=== PATIENT | female | born 1930 | race Caucasian/White ===

== ENCOUNTER 2019-05-15 13:31 | Emergency (ER) | payer MEDICARE, MEDICAID ==
[~2019-05-15] VITALS: Ht 170.2 cm; Wt 52.2 kg
--- NOTE | 2019-05-15 13:44 | ED General ---
General Chief Complaint: General Problems/Pain Stated Complaint: WEAKNESS Source of Information: Patient, EMS Exam Limitations: No Limitations, Other (dementia) History of Present Illness Date Seen by Provider: May 15, 2019 Time Seen by Provider: 15:05 Initial Comments This 88-year-old white female presents from the half-way with a history of sudden weakness. The half-way personnel had been walking the patient when she became worried and had to lie down. She sustained no fall and no injury. The patient's decreased level of responsiveness precipitated her transferred to the emergency room for evaluation. On arrival in emergency Department patient was minimally but appropriately verbally responsive. Patient suffers from dementia. The patient denied any specific area of pain, Allergies and Home Medications Allergies Coded Allergies: No Known Drug Allergies (Unverified , 05/15/19) Patient Home Medication List Home Medication List Reviewed: Yes Review of Systems Review of Systems Constitutional: weakness EENTM: no symptoms reported Respiratory: No cough, No short of breath Cardiovascular: No chest pain, No palpitations Gastrointestinal: No abdominal pain, No nausea, No vomiting Genitourinary: No dysuria, No frequency : No Musculoskeletal: see HPI; No back pain, No joint pain Skin: No change in color, No rash Psychiatric/Neurological: Other (dementia) Hematologic/Lymphatic: No Symptoms Reported Immunological/Allergic: no symptoms reported Past Drphjut-Hjviiv-Jcisvr Hx Past Med/Social Hx: Reviewed Nursing Past Med/Soc Hx Physical Exam Vital Signs Vital Signs - First Documented 05/15/19 13:40 Temp 99.2 Pulse 75 Resp 18 B/P (MAP) 105/49 (67) Pulse Ox 95 O2 Delivery Room Air Capillary Refill : Height, Weight, BMI Height: '" Weight: lbs. oz. kg; BMI Method: General Appearance: No Apparent Distress, Cachetic Eyes: Bilateral Eye Normal Inspection HEENT: Normal ENT Inspection Neck: Full Range of Motion, Normal Inspection, Non Tender Respiratory: Chest Non Tender, Lungs Clear, Normal Breath Sounds Cardiovascular: Regular Rate, Rhythm, No Murmur Gastrointestinal: Normal Bowel Sounds, Non Tender, Soft Extremity: Normal Inspection, Normal Range of Motion Neurologic/Psychiatric: No Motor/Sensory Deficits Skin: Normal Color, Warm/Dry Progress/Results/Core Measures Suspected Sepsis SIRS Temperature: Pulse: Respiratory Rate: Laboratory Tests 05/15/19 13:40: White Blood Count 8.7 Blood Pressure / Mean: Laboratory Tests 05/15/19 13:40: Creatinine 1.02, Platelet Count 345, Total Bilirubin 0.3 Results/Orders Lab Results Laboratory Tests Test 05/15/19 13:40 Range/Units White Blood Count 8.7 4.3-11.0 10^3/uL Red Blood Count 4.29 L 4.35-5.85 10^6/uL Hemoglobin 12.4 11.5-16.0 G/DL Hematocrit 38 35-52 % Mean Corpuscular Volume 88 80-99 FL Mean Corpuscular Hemoglobin 29 25-34 PG Mean Corpuscular Hemoglobin Concent 33 32-36 G/DL Red Cell Distribution Width 12.4 10.0-14.5 % Platelet Count 345 130-400 10^3/uL Mean Platelet Volume 10.0 7.4-10.4 FL Neutrophils (%) (Auto) 59 42-75 % Lymphocytes (%) (Auto) 30 12-44 % Monocytes (%) (Auto) 8 0-12 % Eosinophils (%) (Auto) 2 0-10 % Basophils (%) (Auto) 1 0-10 % Neutrophils # (Auto) 5.1 1.8-7.8 X 10^3 Lymphocytes # (Auto) 2.6 1.0-4.0 X 10^3 Monocytes # (Auto) 0.7 0.0-1.0 X 10^3 Eosinophils # (Auto) 0.2 0.0-0.3 10^3/uL Basophils # (Auto) 0.1 0.0-0.1 10^3/uL Sodium Level 135 135-145 MMOL/L Potassium Level 4.9 3.6-5.0 MMOL/L Chloride Level 100 98-107 MMOL/L Carbon Dioxide Level 21 21-32 MMOL/L Anion Gap 14 5-14 MMOL/L Blood Urea Nitrogen 20 H 7-18 MG/DL Creatinine 1.02 0.60-1.30 MG/DL Estimat Glomerular Filtration Rate 51 BUN/Creatinine Ratio 20 Glucose Level 131 H 70-105 MG/DL Calcium Level 8.8 8.5-10.1 MG/DL Corrected Calcium 9.1 8.5-10.1 MG/DL Total Bilirubin 0.3 0.1-1.0 MG/DL Aspartate Amino Transf (AST/SGOT) 14 5-34 U/L Alanine Aminotransferase (ALT/SGPT) 11 0-55 U/L Alkaline Phosphatase 86 40-136 U/L Total Protein 6.6 6.4-8.2 GM/DL Albumin 3.6 3.2-4.5 GM/DL My Orders Orders - WILVER GARCIA MD Ekg Tracing (05/15/19 13:45) Cbc With Automated Diff (05/15/19 13:45) Comprehensive Metabolic Panel (05/15/19 13:45) Ua Culture If Indicated (05/15/19 13:45) Chest 1 View, Ap/Pa Only (05/15/19 13:45) Ct Head Wo (05/15/19 13:45) Vital Signs/I&O 05/15/19 13:40 Temp 99.2 Pulse 75 Resp 18 B/P (MAP) 105/49 (67) Pulse Ox 95 O2 Delivery Room Air Capillary Refill : Progress Note : Time: 15:[address] of the head cervical spine was unremarkable. Patient's EKG demonstrated a normal sinus rhythm no acute current of injury was noted. Chest x-ray was unremarkable. Patient's laboratory evaluation was essentially normal. The patient was tested for gait and found to be able to walk with minimal assistance and without apparent discomfort. Departure Impression Primary Impression: General medical exam Disposition: 01 HOME, SELF-CARE Condition: Improved Departure-Patient Inst. Decision time for Depature: 15:14 Patient Instructions: Orthostatic Hypotension Add. Discharge Instructions: Rest at the half-way tonight. Return if any problems or questions. All discharge instructions reviewed with patient and/or family. Voiced understanding. WILVER GARCIA MD May 15, 2019 13:43
[2019-05-15 13:52] LABS: BASOPHILS # (AUTO) 0.1 10^3/uL (0.0-0.1); BASOPHILS % (AUTO) 1 % (0-10); EOSINOPHILS # (AUTO) 0.2 10^3/uL (0.0-0.3); EOSINOPHILS % (AUTO) 2 % (0-10); HEMATOCRIT 38 % (35-52); HEMOGLOBIN 12.4 G/DL (11.5-16.0); LYMPHOCYTES # (AUTO) 2.6 X 10^3 (1.0-4.0); LYMPHOCYTES % (AUTO) 30 % (12-44); MEAN CORPUSCULAR HEMOGLOBIN 29 PG (25-34); MEAN CORPUSCULAR HGB CONC 33 G/DL (32-36); MEAN CORPUSCULAR VOLUME 88 FL (80-99); MONOCYTES # (AUTO) 0.7 X 10^3 (0.0-1.0); MONOCYTES % (AUTO) 8 % (0-12); NEUTROPHILS # (AUTO) 5.1 X 10^3 (1.8-7.8); NEUTROPHILS % (AUTO) 59 % (42-75); PLATELET COUNT 345 10^3/uL (130-400); RED CELL DISTRIBUTION WIDTH 12.4 % (10.0-14.5); WHITE BLOOD COUNT 8.7 10^3/uL (4.3-11.0)
[2019-05-15 14:08] LABS: ALBUMIN 3.6 GM/DL (3.2-4.5); BILIRUBIN,TOTAL 0.3 MG/DL (0.1-1.0); CALCIUM 8.8 MG/DL (8.5-10.1); CREATININE SERUM 1.02 MG/DL (0.60-1.30); POTASSIUM 4.9 MMOL/L (3.6-5.0); TOTAL PROTEIN 6.6 GM/DL (6.4-8.2)
--- NOTE | 2019-05-15 14:30 | Diagnostic Imaging Report ---
PROCEDURE: CT head without contrast. TECHNIQUE: Multiple contiguous axial images were obtained through the brain without the use of intravenous contrast. Auto Exposure Controls were utilized during the CT exam to meet ALARA standards for radiation dose reduction. INDICATION: Weakness. COMPARISON: No prior studies are available for comparison. FINDINGS: The ventricles and sulci are consistent with the patient's age. Periventricular hypodensities are noted consistent with senescent change. No sulcal effacement or midline shift is identified. No acute intra-axial or extra-axial hemorrhage is detected. Cisterns are patent. Visualized paranasal sinuses are clear. IMPRESSION: Senescent changes. No acute intracranial process is detected. Dictated by: Dictated on workstation # [id number]
--- NOTE | 2019-05-15 14:37 | Diagnostic Imaging Report ---
INDICATION: Weakness and abnormal breathing. TIME OF EXAM: 02:27 p.m. COMPARISON: No prior studies are available for comparison. FINDINGS: The heart size is normal. The pulmonary vascularity is unremarkable. The lungs are clear. No infiltrate, effusion or pneumothorax is detected. IMPRESSION: No acute cardiopulmonary process is detected. Dictated by: Dictated on workstation # [id number]
--- NOTE | 2019-05-15 15:44 | NUR ---
[facility] notified for pt needing transport back to facility.
--- NOTE | 2019-05-15 15:44 | NUR ---
pt walked without c/o dizziness or weakness.
[2019-05-15 16:30] VITALS: BP 105/49
--- OUTSIDE RECORDS SUMMARY | 2019-05-15 23:57 | XMS REPORT | Clinical Summary ---
Author Author Admin, GI Organization [facility] Address Unknown Phone Unavailable Allergies, Adverse Reactions, Alerts Allergy Name Reaction Description Start Date Severity Status Provider ASPIRIN LOW STRENGTH swelling Critical Active Jerrod lBackwell MD Conditions or Problems Problem Name Problem Code Onset Date Status Entry Date Provider Comment Standard Description Annotate Dementia 294.8 Active Jerrod Blackwell MD Other persistent mental disorders due to conditions classified elsewhere Depression 311 Active Jerrod Blackwell MD Depressive disorder, not elsewhere classified Dysuria 788.1 Active Jalyn PALENCIA Dysuria Constipation, mild 564.00 Active Jerrod Blackwell MD Constipation, unspecified Urinary tract infection 599.0 Active Jerrod Blackwell MD Urinary tract infection, site not specified Upper respiratory infection 465.9 Active Jerrod Blackwell MD Acute upper respiratory infections of unspecified site Medication List Medication Instructions Start Date Stop Date Generic Name NDC Status Provider Patient Instruction DONEPEZIL HCL 10 MG TBDP 1 qHS DONEPEZIL HCL 46395034832 No Longer Active Nitza Deb Active MIRTAZAPINE 30 MG TABS 1 tab at bedtime MIRTAZAPINE 47267035170 No Longer Active Nitza Deb Active RIVASTIGMINE TARTRATE 1.5 MG CAPS 1 cap every evening RIVASTIGMINE TARTRATE 39176041391 No Longer Active Nitza Deb Active MAGNESIUM CITRATE 1.745 GM/30ML SOLN 60ml po times one. MAGNESIUM CITRATE 06589045251 No Longer Active Jerrod Blackwell MD Active CIPRO 250 MG TAB 1 tablet by mouth twice daily CIPROFLOXACIN HCL 97358397077 No Longer Active Jerrod Blackwell MD Active LORAZEPAM 0.5 MG TABS 1 tab twice daily as needed LORAZEPAM 78585990184 Active Jerrod Blackwell MD Active ANTI-DIARRHEAL 2 MG CAPS Take 1 capsule every 4 to 6 hours as needed for diarrhea LOPERAMIDE HCL 26152894632 No Longer Active Jerrod Blackwell MD Active ATIVAN 0.5 MG TAB 1 twice a day as needed LORAZEPAM 47346461270 No Longer Active Jerrod Blackwell MD Active REMERON 15 MG TABS 1 every night for depression MIRTAZAPINE 37119306183 No Longer Active Jerrod Blackwell MD Active NAMENDA 5 MG TABS 1 twice a day for memory MEMANTINE HCL 60582288778 No Longer Active Jerrod Blackwell MD Active TYLENOL 325 MG TAB 2 tablets every four to six hours as needed for pain ACETAMINOPHEN 58692726573 Active Jerrod Blackwell MD Active DONEPEZIL HCL 5 MG TABS 1 every evening, Increase to 10mg every evening after 1 month DONEPEZIL HCL 03952952073 No Longer Active Jerrod Blackwell MD Active EQ MILK OF MAGNESIA SUSP Take 30mL every 6hrs. as needed for constipation MAGNESIUM HYDROXIDE SUSP 58694228225 Active Jerrod Blackwell MD Active DONEPEZIL HCL 5 MG TABS 1 every evening, Increase to 10mg every evening after 1 month DONEPEZIL HCL 5 MG TABS 796971 DONEPEZIL HCL Inactive NAMENDA 5 MG TABS 1 twice a day for memory NAMENDA 5 MG TABS MEMANTINE HCL Inactive REMERON 15 MG TABS 1 every night for depression REMERON 15 MG TABS 120515 MIRTAZAPINE Inactive ATIVAN 0.5 MG TAB 1 twice a day as needed ATIVAN 0.5 MG TAB 929211 LORAZEPAM Inactive ANTI-DIARRHEAL 2 MG CAPS Take 1 capsule every 4 to 6 hours as needed for diarrhea ANTI-DIARRHEAL 2 MG CAPS 009577 LOPERAMIDE HCL Inactive CIPRO 250 MG TAB 1 tablet by mouth twice daily CIPRO 250 MG TAB 566181 CIPROFLOXACIN HCL Inactive MAGNESIUM CITRATE 1.745 GM/30ML SOLN 60ml po times one. MAGNESIUM CITRATE 1.745 GM/30ML SOLN 6545398 MAGNESIUM CITRATE Inactive RIVASTIGMINE TARTRATE 1.5 MG CAPS 1 cap every evening RIVASTIGMINE TARTRATE 1.5 MG CAPS 225736 RIVASTIGMINE TARTRATE Inactive MIRTAZAPINE 30 MG TABS 1 tab at bedtime MIRTAZAPINE 30 MG TABS 591260 MIRTAZAPINE Inactive DONEPEZIL HCL 10 MG TBDP 1 qHS DONEPEZIL HCL 10 MG TBDP 098734 DONEPEZIL HCL Inactive Advance Directives Directive Description Start Date ORDER APPOINTING TEMPORARY GUARDIAN AND CONSERVATOR LETTER OF GUARDIANSHIP AND CONSERVATORSHIP Vital Signs Date Name Value Unit Range Description blood pressure, diastolic - 8462-4 74 mm[Hg] BP mcginnis blood pressure, systolic - 8480-6 156 mm[Hg] BP sys pulse rate E&M - 8867-4 85 /min Heart rate temperature E&M 98.1 [degF] Body temperature weight E&M - 3141-9 102.1 [lb_av] Weight Measured Encounters Code Encounter Date Provider Facility CPT-27942 Level 3 Est. Patient 15:37:18 CDT Jerrod Blackwell MD [facility] CPT-34431 Level 3 Est. Patient 12:08:11 CDT Jerrod Blackwell MD [facility] CPT-76007 Level 3 Est. 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 Patient 11:55:42 CHICKEN CLEANER Jerrod Blackwell MD [facility] CPT-59674 Level 3 Est. Patient 10:29:34 CHICKEN CLEANER Jerrod Blackwell MD [facility] CPT-12448 Level 3 New Patient 11:57:16 CHICKEN CLEANER Jerrod Blackwell MD [facility]
--- OUTSIDE RECORDS SUMMARY | 2019-05-15 23:57 | XMS REPORT | Clinical Summary ---
Author Author Admin, GI Organization [facility] Address Unknown Phone Unavailable Allergies, Adverse Reactions, Alerts Allergy Name Reaction Description Start Date Severity Status Provider ASPIRIN LOW STRENGTH swelling Critical Active Jerrod Blackwell MD Conditions or Problems Problem Name Problem Code Onset Date Status Entry Date Provider Comment Standard Description Annotate Dementia 294.8 Active Jerrod Blackwell MD Other persistent mental disorders due to conditions classified elsewhere Depression 311 Active Jerrod Blackwell MD Depressive disorder, not elsewhere classified Dysuria 788.1 Resolved Jerrod Blackwell MD Dysuria Constipation, mild 564.00 Active Jerrod Blackwell MD Constipation, unspecified Urinary tract infection 599.0 Resolved Jerrod Blackwell MD Urinary tract infection, site not specified Upper respiratory infection 465.9 Resolved Jerrod Blcakwell MD Acute upper respiratory infections of unspecified site Problems with hearing V41.2 Active Shagufta Fonseca [employer]OTHING [employer]UTTER Problems with hearing Xerosis, 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 Active Shagufta 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 [employer]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 CUTTER Other specified diseases of sebaceous glands Weight loss 783.21 Active Jerrod Blackwell MD Loss of weight Dysuria ICD-788.1 Inactive Jerrod Blackwell MD Urinary tract infection ICD-599.0 Inactive Jerrod Blackwell MD Upper respiratory infection ICD-465.9 Inactive Jerrod Blackwell MD Medication List Medication Instructions Start Date Stop Date Generic Name NDC Status Provider Patient Instruction AMBIEN 5 MG TAB 1 po qHS PRN Insomnia ZOLPIDEM TARTRATE 92381513688 Active Nitza Deb Active MIRTAZAPINE 15 MG ORAL TABS 1 every evening for depression/nutrition MIRTAZAPINE 56240731067 Active Jerrod Blackwell MD Active HALOPERIDOL LACTATE 2 MG/ML ORAL CONC 0.5mg by mouth twice daily HALOPERIDOL LACTATE 92674240195 No Longer Active Shagufta Yokum [employer]OTHING CUTTER Active EXELON 4.6 MG/24HR TRANS PT24 Apply one daily RIVASTIGMINE 26632899382 No Longer Active Shagufta Yokum [employer]OTHING CUTTER Active LORAZEPAM 0.5 MG TABS 1 tablet daily as needed for severe aggitation/anxiety LORAZEPAM 55650224780 Active Jerrod Blackwell MD Active DONEPEZIL HCL 10 MG TBDP 1 qHS DONEPEZIL HCL 05145791108 No Longer Active Nitza Deb Active MIRTAZAPINE 30 MG TABS 1 tab at bedtime MIRTAZAPINE 72736259640 No Longer Active Nitza Deb Active RIVASTIGMINE TARTRATE 1.5 MG CAPS 1 cap every evening RIVASTIGMINE TARTRATE 55876012690 No Longer Active Nitza Deb Active MAGNESIUM CITRATE 1.745 GM/30ML SOLN 60ml po times one. MAGNESIUM CITRATE 42601467901 No Longer Active Jerrod Blackwell MD Active CIPRO 250 MG TAB 1 tablet by mouth twice daily CIPROFLOXACIN HCL 84856313264 No Longer Active Jerrod Blackwell MD Active ANTI-DIARRHEAL 2 MG CAPS Take 1 capsule every 4 to 6 hours as needed for diarrhea LOPERAMIDE HCL 95478939257 No Longer Active Jerrod Blackwell MD Active ATIVAN 0.5 MG TAB 1 twice a day as needed LORAZEPAM 13597727132 No Longer Active Jerrod Blackwell MD Active REMERON 15 MG TABS 1 every night for depression MIRTAZAPINE 04028485793 No Longer Active Jerrod Blackwell MD Active NAMENDA 5 MG TABS 1 twice a day for memory MEMANTINE HCL 56336324523 No Longer Active Jerrod Blackwell MD Active TYLENOL 325 MG TAB 2 tablets every four to six hours as needed for pain ACETAMINOPHEN 17079173506 Active Jerrod Blackwell MD Active DONEPEZIL HCL 5 MG TABS 1 every evening, Increase to 10mg every evening after 1 month DONEPEZIL HCL 57783577532 No Longer Active Jerrod Blackwell MD Active EQ MILK OF MAGNESIA SUSP Take 30mL every 6hrs. as needed for constipation MAGNESIUM HYDROXIDE SUSP 75855272820 Active Jerrod Blackwell MD Active DONEPEZIL HCL 5 MG TABS 1 every evening, Increase to 10mg every evening after 1 month DONEPEZIL HCL 5 MG TABS 563446 DONEPEZIL HCL Inactive NAMENDA 5 MG TABS 1 twice a day for memory NAMENDA 5 MG TABS MEMANTINE HCL Inactive REMERON 15 MG TABS 1 every night for depression REMERON 15 MG TABS 874250 MIRTAZAPINE Inactive ATIVAN 0.5 MG TAB 1 twice a day as needed ATIVAN 0.5 MG TAB 632484 LORAZEPAM Inactive ANTI-DIARRHEAL 2 MG CAPS Take 1 capsule every 4 to 6 hours as needed for diarrhea ANTI-DIARRHEAL 2 MG CAPS 064821 LOPERAMIDE HCL Inactive CIPRO 250 MG TAB 1 tablet by mouth twice daily CIPRO 250 MG TAB 687421 CIPROFLOXACIN HCL Inactive MAGNESIUM CITRATE 1.745 GM/30ML SOLN 60ml po times one. MAGNESIUM CITRATE 1.745 GM/30ML SOLN 9646730 MAGNESIUM CITRATE Inactive RIVASTIGMINE TARTRATE 1.5 MG CAPS 1 cap every evening RIVASTIGMINE TARTRATE 1.5 MG CAPS 127218 RIVASTIGMINE TARTRATE Inactive MIRTAZAPINE 30 MG TABS 1 tab at bedtime MIRTAZAPINE 30 MG TABS 639694 MIRTAZAPINE Inactive DONEPEZIL HCL 10 MG TBDP 1 qHS DONEPEZIL HCL 10 MG TBDP 871729 DONEPEZIL HCL Inactive EXELON 4.6 MG/24HR TRANS PT24 Apply one daily EXELON 4.6 MG/24HR TRANS PT24 RIVASTIGMINE Inactive HALOPERIDOL LACTATE 2 MG/ML ORAL CONC 0.5mg by mouth twice daily HALOPERIDOL LACTATE 2 MG/ML ORAL CONC 409339 HALOPERIDOL LACTATE Inactive Advance Directives Directive Description Start Date ORDER APPOINTING TEMPORARY GUARDIAN AND CONSERVATOR LETTER OF GUARDIANSHIP AND CONSERVATORSHIP Vital Signs Date Name Value Unit Range Description blood pressure, diastolic - 8462-4 71 mm[Hg] BP mcginnis blood pressure, systolic - 8480-6 132 mm[Hg] BP sys pulse rate E&M - 8867-4 81 /min Heart rate temperature E&M 97.9 [degF] Body temperature weight E&M - 3141-9 97.4 [lb_av] Weight Measured blood pressure, diastolic - 8462-4 75 mm[Hg] BP mcginnis blood pressure, systolic - 8480-6 131 mm[Hg] BP sys pulse rate E&M - 8867-4 80 /min Heart rate temperature E&M 97.6 [degF] Body temperature weight E&M - 3141-9 100.2 [lb_av] Weight Measured blood pressure, diastolic - 8462-4 76 mm[Hg] BP mcginnis blood pressure, systolic - 8480-6 130 mm[Hg] BP sys pulse rate E&M - 8867-4 76 /min Heart rate temperature E&M 98.8 [degF] Body temperature weight E&M - 3141-9 105.4 [lb_av] Weight Measured blood pressure, diastolic - 8462-4 74 mm[Hg] BP mcginnis blood pressure, systolic - 8480-6 156 mm[Hg] BP sys pulse rate E&M - 8867-4 85 /min Heart rate temperature E&M 98.1 [degF] Body temperature weight E&M - 3141-9 102.1 [lb_av] Weight Measured Diagnostic Results Date Name Value Unit Range Description Lab Report: CBC, Comp. Metabolic Panel, Thyroid Stimulating Hormone (L), ... - Chemistry sodium, serum 131 mmol/L 720-533 6562/08/04 potassium, serum 4.7 mmol/L 3.5-5.2 chloride, serum 93 mmol/L 98-107 carbon dioxide, venous blood 31.4 mmol/L 21.0-32.0 blood glucose 106 mg/dL 65-110 urea nitrogen, blood 12 mg/dL 7-18 creatinine, serum 0.80 mg/dL 0.60-1.30 alanine aminotransferase (SGPT), serum 16 U/L 12-78 aspartate aminotransferase (SGOT), serum 14 U/L 15-37 calcium, serum 9.1 mg/dL 8.5-10.1 bilirubin, serum, total 0.80 mg/dL 0.00-1.00 TSH 1.69 m[iU]/mL 0.36-3.74 thyroxine, serum, free 1.29 ng/dL 0.76-1.46 Lab Report: CBC, Comp. Metabolic Panel, Thyroid Stimulating Hormone (L), ... - Hematology leukocyte count, blood 6.1 10^3/MM^3 10*3/mm3 4.6-10.2 erythrocyte (RBC) count 4.55 10^6/MM^3 10*6/mm3 4.04-5.48 hemoglobin, blood 13.6 g/dL 12.0-16.0 hematocrit, blood 39.3 % 36.0-46.0 mean corpuscular volume, RBC 86 fL 80-97 mean corpuscular hemoglobin, RBC 29.9 pg 27.0-31.2 mean corpuscular hemoglobin concentration, RBC 34.6 G/DL % 31.8-35.4 red blood cell distribution width 13.8 % 11.6-14.8 platelet count 370 10^3/MM^3 10*3/mm3 142-424 Encounters Code Encounter Date Provider Facility CPT-71500 Level 4 Est. Patient 11:23:55 CDT Jerrod Blackwell MD [facility] CPT-80634 Level 3 Est. Patient 12:57:00 CDT Shagufta Fonseca APRN [facility] CPT-06757 Level 3 Est. Patient 15:37:18 CDT Jerrod Blackwell MD [facility] CPT-52620 Level 3 Est. Patient 12:08:11 CDT Jerrod Blackwell MD [facility] CPT-20707 Level 3 Est. 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 Patient 10:29:34 SUPERVISOR [employer]OT[employer] Jerrod Blackwell MD [facility] CPT-30618 Level 3 New Patient 11:57:16 SUPERVISOR [employer]OT[employer] Jerrod Blackwell MD [facility]
--- OUTSIDE RECORDS SUMMARY | 2019-05-15 23:58 | XMS REPORT | Clinical Summary ---
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 Shagufta Fonseca CREDIT RISK ASSOCIATE Other specified diseases of sebaceous glands Weight loss 783.21 Active Jerrod Blackwell MD Loss of weight Dysuria ICD-788.1 Inactive Jerrod Blackwell MD Urinary tract infection ICD-599.0 Inactive Jerrod Blackwell MD Upper respiratory infection ICD-465.9 Inactive Jerrod Blackwell MD Medication List Medication Instructions Start Date Stop Date Generic Name NDC Status Provider Patient Instruction AMBIEN 5 MG TAB Take 1/2 tablet at HS ZOLPIDEM TARTRATE 64597892220 Active Mary Gallo APRN Active MIRTAZAPINE 15 MG ORAL TABS 1 every evening for depression/nutrition MIRTAZAPINE 24453377849 Active Jerrod Blackwell MD Active HALOPERIDOL LACTATE 2 MG/ML ORAL CONC 0.5mg by mouth twice daily HALOPERIDOL LACTATE 29612071603 No Longer Active Shagufta Fonseca APRN Active EXELON 4.6 MG/24HR TRANS PT24 Apply one daily RIVASTIGMINE 20036686963 No Longer Active Shagufta Fonseca APRN Active LORAZEPAM 0.5 MG TABS 1 tablet daily as needed for severe aggitation/anxiety LORAZEPAM 15013076741 Active Jerrod Blackwell MD Active DONEPEZIL HCL 10 MG TBDP 1 qHS DONEPEZIL HCL 81824583980 No Longer Active Nitza Deb Active MIRTAZAPINE 30 MG TABS 1 tab at bedtime MIRTAZAPINE 98013365887 No Longer Active Nitza Deb Active RIVASTIGMINE TARTRATE 1.5 MG CAPS 1 cap every evening RIVASTIGMINE TARTRATE 14699275282 No Longer Active Nitza Deb Active MAGNESIUM CITRATE 1.745 GM/30ML SOLN 60ml po times one. MAGNESIUM CITRATE 80069690618 No Longer Active Jerrod Blackwell MD Active CIPRO 250 MG TAB 1 tablet by mouth twice daily CIPROFLOXACIN HCL 04639329629 No Longer Active Jerrod Blackwell MD Active ANTI-DIARRHEAL 2 MG CAPS Take 1 capsule every 4 to 6 hours as needed for diarrhea LOPERAMIDE HCL 05074843946 No Longer Active Jerrod Blackwell MD Active ATIVAN 0.5 MG TAB 1 twice a day as needed LORAZEPAM 52797583176 No Longer Active Jerrod Blackwell MD Active REMERON 15 MG TABS 1 every night for depression MIRTAZAPINE 10027183082 No Longer Active Jerrod Blackwell MD Active NAMENDA 5 MG TABS 1 twice a day for memory MEMANTINE HCL 91526263056 No Longer Active Jerrod Blackwell MD Active TYLENOL 325 MG TAB 2 tablets every four to six hours as needed for pain ACETAMINOPHEN 52724883531 Active Jerrod Blackwell MD Active DONEPEZIL HCL 5 MG TABS 1 every evening, Increase to 10mg every evening after 1 month DONEPEZIL HCL 86369525327 No Longer Active Jerrod Blackwell MD Active EQ MILK OF MAGNESIA SUSP Take 30mL every 6hrs. as needed for constipation MAGNESIUM HYDROXIDE SUSP 35416367017 Active Jerrod Blackwell MD Active DONEPEZIL HCL 5 MG TABS 1 every evening, Increase to 10mg every evening after 1 month DONEPEZIL HCL 5 MG TABS 584733 DONEPEZIL HCL Inactive NAMENDA 5 MG TABS 1 twice a day for memory NAMENDA 5 MG TABS 701224 MEMANTINE HCL Inactive REMERON 15 MG TABS 1 every night for depression REMERON 15 MG TABS 441561 MIRTAZAPINE Inactive ATIVAN 0.5 MG TAB 1 twice a day as needed ATIVAN 0.5 MG TAB 911625 LORAZEPAM Inactive ANTI-DIARRHEAL 2 MG CAPS Take 1 capsule every 4 to 6 hours as needed for diarrhea ANTI-DIARRHEAL 2 MG CAPS 479377 LOPERAMIDE HCL Inactive CIPRO 250 MG TAB 1 tablet by mouth twice daily CIPRO 250 MG TAB 025876 CIPROFLOXACIN HCL Inactive MAGNESIUM CITRATE 1.745 GM/30ML SOLN 60ml po times one. MAGNESIUM CITRATE 1.745 GM/30ML SOLN 2712795 MAGNESIUM CITRATE Inactive RIVASTIGMINE TARTRATE 1.5 MG CAPS 1 cap every evening RIVASTIGMINE TARTRATE 1.5 MG CAPS 887619 RIVASTIGMINE TARTRATE Inactive MIRTAZAPINE 30 MG TABS 1 tab at bedtime MIRTAZAPINE 30 MG TABS 113700 MIRTAZAPINE Inactive DONEPEZIL HCL 10 MG TBDP 1 qHS DONEPEZIL HCL 10 MG TBDP 161510 DONEPEZIL HCL Inactive EXELON 4.6 MG/24HR TRANS PT24 Apply one daily EXELON 4.6 MG/24HR TRANS PT24 057222 RIVASTIGMINE Inactive HALOPERIDOL LACTATE 2 MG/ML ORAL CONC 0.5mg by mouth twice daily HALOPERIDOL LACTATE 2 MG/ML ORAL CONC 389252 HALOPERIDOL LACTATE Inactive Advance Directives Directive Description Start Date ORDER APPOINTING TEMPORARY GUARDIAN AND CONSERVATOR LETTER OF GUARDIANSHIP AND CONSERVATORSHIP Encounters Code Encounter Date Provider Facility CPT-[id number] Level 4 Est. Patient 11:23:55 CDT Jerrod Blackwell MD [facility] CPT-80599 Level 3 Est. Patient 12:57:00 CDT Shagufta Fonseca APRN [facility] CPT-92287 Level 3 Est. Patient 15:37:18 CDT Jerrod Blackwell MD [facility] CPT-14596 Level 3 Est. Patient 12:08:11 CDT Jerrod Blackwell MD [facility] CPT-07450 Level 3 Est. Patient 16:03:05 TEST CONSULTANT Jerrod Blackwell MD [facility] CPT-54305 Level 4 Est. Patient 11:55:42 TEST CONSULTANT Jerrod Blackwell MD [facility] CPT-01929 Level 3 Est. Patient 10:29:34 TEST CONSULTANT Jerrod Blackwell MD [facility] CPT-06094 Level 3 New Patient 11:57:16 TEST CONSULTANT Jerrod Blackwell MD [facility]
--- OUTSIDE RECORDS SUMMARY | 2019-05-15 23:58 | XMS REPORT | Clinical Summary ---
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 Shagufta Fonseca RN INFORMATICS Other specified diseases of sebaceous glands Dysuria ICD-788.1 Inactive Jerrod Blackwell MD Urinary tract infection ICD-599.0 Inactive Jerrod Blackwell MD Upper respiratory infection ICD-465.9 Inactive Jerrod Blackwell MD Medication List Medication Instructions Start Date Stop Date Generic Name NDC Status Provider Patient Instruction HALOPERIDOL LACTATE 2 MG/ML ORAL CONC 0.5mg by mouth twice daily HALOPERIDOL LACTATE 80017813105 No Longer Active Shagufta Fonseca RN INFORMATICS Active EXELON 4.6 MG/24HR TRANS PT24 Apply one daily RIVASTIGMINE 98307209064 No Longer Active Shagufta Fonseca RN INFORMATICS Active LORAZEPAM 0.5 MG TABS 1 tablet daily as needed for severe aggitation/anxiety LORAZEPAM 85725840406 Active Jerrod Blackwell MD Active DONEPEZIL HCL 10 MG TBDP 1 qHS DONEPEZIL HCL 31538001128 No Longer Active Nitza Deb Active MIRTAZAPINE 30 MG TABS 1 tab at bedtime MIRTAZAPINE 11320370565 No Longer Active Nitza Deb Active RIVASTIGMINE TARTRATE 1.5 MG CAPS 1 cap every evening RIVASTIGMINE TARTRATE 01147386391 No Longer Active Nitza Deb Active MAGNESIUM CITRATE 1.745 GM/30ML SOLN 60ml po times one. MAGNESIUM CITRATE 05743463697 No Longer Active Jerrod Blackwell MD Active CIPRO 250 MG TAB 1 tablet by mouth twice daily CIPROFLOXACIN HCL 42702679937 No Longer Active Jerrod Blackwell MD Active ANTI-DIARRHEAL 2 MG CAPS Take 1 capsule every 4 to 6 hours as needed for diarrhea LOPERAMIDE HCL 50944743766 No Longer Active Jerrod Blackwell MD Active ATIVAN 0.5 MG TAB 1 twice a day as needed LORAZEPAM 51757583765 No Longer Active Jerrod Blackwell MD Active REMERON 15 MG TABS 1 every night for depression MIRTAZAPINE 72022909064 No Longer Active Jerrod Blackwell MD Active NAMENDA 5 MG TABS 1 twice a day for memory MEMANTINE HCL 78063356382 No Longer Active Jerrod Blackwell MD Active TYLENOL 325 MG TAB 2 tablets every four to six hours as needed for pain ACETAMINOPHEN 60559140158 Active Jerrod Blackwell MD Active DONEPEZIL HCL 5 MG TABS 1 every evening, Increase to 10mg every evening after 1 month DONEPEZIL HCL 20536496651 No Longer Active Jerrod Blackwell MD Active EQ MILK OF MAGNESIA SUSP Take 30mL every 6hrs. as needed for constipation MAGNESIUM HYDROXIDE SUSP 99010591046 Active Jerrod Blackwell MD Active DONEPEZIL HCL 5 MG TABS 1 every evening, Increase to 10mg every evening after 1 month DONEPEZIL HCL 5 MG TABS 330730 DONEPEZIL HCL Inactive NAMENDA 5 MG TABS 1 twice a day for memory NAMENDA 5 MG TABS MEMANTINE HCL Inactive REMERON 15 MG TABS 1 every night for depression REMERON 15 MG TABS 719228 MIRTAZAPINE Inactive ATIVAN 0.5 MG TAB 1 twice a day as needed ATIVAN 0.5 MG TAB 485040 LORAZEPAM Inactive ANTI-DIARRHEAL 2 MG CAPS Take 1 capsule every 4 to 6 hours as needed for diarrhea ANTI-DIARRHEAL 2 MG CAPS 538843 LOPERAMIDE HCL Inactive CIPRO 250 MG TAB 1 tablet by mouth twice daily CIPRO 250 MG TAB 927239 CIPROFLOXACIN HCL Inactive MAGNESIUM CITRATE 1.745 GM/30ML SOLN 60ml po times one. MAGNESIUM CITRATE 1.745 GM/30ML SOLN 9510018 MAGNESIUM CITRATE Inactive RIVASTIGMINE TARTRATE 1.5 MG CAPS 1 cap every evening RIVASTIGMINE TARTRATE 1.5 MG CAPS 453122 RIVASTIGMINE TARTRATE Inactive MIRTAZAPINE 30 MG TABS 1 tab at bedtime MIRTAZAPINE 30 MG TABS 304534 MIRTAZAPINE Inactive DONEPEZIL HCL 10 MG TBDP 1 qHS DONEPEZIL HCL 10 MG TBDP 759216 DONEPEZIL HCL Inactive EXELON 4.6 MG/24HR TRANS PT24 Apply one daily EXELON 4.6 MG/24HR TRANS PT24 RIVASTIGMINE Inactive HALOPERIDOL LACTATE 2 MG/ML ORAL CONC 0.5mg by mouth twice daily HALOPERIDOL LACTATE 2 MG/ML ORAL CONC 491214 HALOPERIDOL LACTATE Inactive Advance Directives Directive Description Start Date ORDER APPOINTING TEMPORARY GUARDIAN AND CONSERVATOR LETTER OF GUARDIANSHIP AND CONSERVATORSHIP Vital Signs Date Name Value Unit Range Description blood pressure, diastolic - 8462-4 75 mm[Hg] [...] Measured Encounters Code Encounter Date Provider Facility CPT-56664 Level 3 Est. Patient 12:57:00 CDT Shagufta Fonseca APRN [facility] CPT-29634 Level 3 Est. Patient 15:37:18 CDT Jerrod Blackwell MD [facility] CPT-27715 Level 3 Est. Patient 12:08:11 CDT Jerrod Blackwell MD [facility] CPT-80295 Level 3 Est. Patient 16:03:05 FEATURES EDITOR Jerrod Blackwell MD [facility] CPT-70357 Level 4 Est. Patient 11:55:42 FEATURES EDITOR Jerrod Blackwell MD [facility] CPT-03482 Level 3 Est. Patient 10:29:34 FEATURES EDITOR Jerrod Blackwell MD [facility] CPT-05142 Level 3 New Patient 11:57:16 FEATURES EDITOR Jerrod Blackwell MD [facility]
--- OUTSIDE RECORDS SUMMARY | 2019-05-15 23:58 | XMS REPORT | Clinical Summary ---
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 Shagufta Fonseca INSPECTOR FLOOR SUB ASSEMBLY Other specified diseases of sebaceous glands Weight [...] Take 1/2 tablet at HS ZOLPIDEM TARTRATE 59554951666 Active Mary Gallo APRN Active MIRTAZAPINE 15 MG ORAL TABS 1 every evening for depression/nutrition MIRTAZAPINE 10300376108 Active Jerrod Blackwell MD Active HALOPERIDOL LACTATE 2 MG/ML ORAL CONC 0.5mg by mouth twice daily HALOPERIDOL LACTATE 19623209254 No Longer Active Shagufta Fonseca APRN Active EXELON 4.6 MG/24HR TRANS PT24 Apply one daily RIVASTIGMINE 48851052241 No Longer Active Shagufta Fonseca APRN Active LORAZEPAM 0.5 MG TABS 1 tablet daily as needed for severe aggitation/anxiety LORAZEPAM 53083732095 Active Jerrod Blackwell MD Active DONEPEZIL HCL 10 MG TBDP 1 qHS DONEPEZIL HCL 05438189883 No Longer Active Nitza Deb Active MIRTAZAPINE 30 MG TABS 1 tab at bedtime MIRTAZAPINE 82727208538 No Longer Active Nitza Deb Active RIVASTIGMINE TARTRATE 1.5 MG CAPS 1 cap every evening RIVASTIGMINE TARTRATE 52987430868 No Longer Active Nitza Deb Active MAGNESIUM CITRATE 1.745 GM/30ML SOLN 60ml po times one. MAGNESIUM CITRATE 99662345239 No Longer Active Jerrod Blackwell MD Active CIPRO 250 MG TAB 1 tablet by mouth twice daily CIPROFLOXACIN HCL 56676414764 No Longer Active Jerrod Blackwell MD Active ANTI-DIARRHEAL 2 MG CAPS Take 1 capsule every 4 to 6 hours as needed for diarrhea LOPERAMIDE HCL 99602974748 No Longer Active Jerrod Blackwell MD Active ATIVAN 0.5 MG TAB 1 twice a day as needed LORAZEPAM 12477299152 No Longer Active Jerrod Blackwell MD Active REMERON 15 MG TABS 1 every night for depression MIRTAZAPINE 96723848743 No Longer Active Jerrod Blackwell MD Active NAMENDA 5 MG TABS 1 twice a day for memory MEMANTINE HCL 58489388561 No Longer Active Jerrod Blackwell MD Active TYLENOL 325 MG TAB 2 tablets every four to six hours as needed for pain ACETAMINOPHEN 65389641076 Active Jerrod Blackwell MD Active DONEPEZIL HCL 5 MG TABS 1 every evening, Increase to 10mg every evening after 1 month DONEPEZIL HCL 61789727066 No Longer Active Jerrod Blackwell MD Active EQ MILK OF MAGNESIA SUSP Take 30mL every 6hrs. as needed for constipation MAGNESIUM HYDROXIDE SUSP 41994518593 Active Jerrod Blackwell MD Active DONEPEZIL HCL 5 MG TABS 1 every evening, Increase to 10mg every evening after 1 month DONEPEZIL HCL 5 MG TABS 236311 DONEPEZIL HCL Inactive NAMENDA 5 MG TABS 1 twice a day for memory NAMENDA 5 MG TABS 356312 MEMANTINE HCL Inactive REMERON 15 MG TABS 1 every night for depression REMERON 15 MG TABS 132962 MIRTAZAPINE Inactive ATIVAN 0.5 MG TAB 1 twice a day as needed ATIVAN 0.5 MG TAB 639923 LORAZEPAM Inactive ANTI-DIARRHEAL 2 MG CAPS Take 1 capsule every 4 to 6 hours as needed for diarrhea ANTI-DIARRHEAL 2 MG CAPS 150742 LOPERAMIDE HCL Inactive CIPRO 250 MG TAB 1 tablet by mouth twice daily CIPRO 250 MG TAB 177232 CIPROFLOXACIN HCL Inactive MAGNESIUM CITRATE 1.745 GM/30ML SOLN 60ml po times one. MAGNESIUM CITRATE 1.745 GM/30ML SOLN 9554609 MAGNESIUM CITRATE Inactive RIVASTIGMINE TARTRATE 1.5 MG CAPS 1 cap every evening RIVASTIGMINE TARTRATE 1.5 MG CAPS 487223 RIVASTIGMINE TARTRATE Inactive MIRTAZAPINE 30 MG TABS 1 tab at bedtime MIRTAZAPINE 30 MG TABS 470093 MIRTAZAPINE Inactive DONEPEZIL HCL 10 MG TBDP 1 qHS DONEPEZIL HCL 10 MG TBDP 037934 DONEPEZIL HCL Inactive EXELON 4.6 MG/24HR TRANS PT24 Apply one daily EXELON 4.6 MG/24HR TRANS PT24 188197 RIVASTIGMINE Inactive HALOPERIDOL LACTATE 2 MG/ML ORAL CONC 0.5mg by mouth twice daily HALOPERIDOL LACTATE 2 MG/ML ORAL CONC 068585 HALOPERIDOL LACTATE Inactive Advance Directives Directive Description Start Date ORDER APPOINTING TEMPORARY GUARDIAN AND CONSERVATOR LETTER OF GUARDIANSHIP AND CONSERVATORSHIP Encounters Code Encounter Date Provider Facility CPT-74435 Level 4 Est. Patient 11:23:55 CDT Jerrod Blackwell MD [facility] CPT-66312 Level 3 Est. Patient 12:57:00 CDT Shagufta Fonseca APRN [facility] CPT-72987 Level 3 Est. Patient 15:37:18 CDT Jerrod Blackwell MD [facility] CPT-89810 Level 3 Est. Patient 12:08:11 CDT Jerrod Blackwell MD [facility] CPT-85153 Level 3 Est. Patient 16:03:05 CROP ADJUSTER Jerrod Blackwell MD [facility] CPT-39950 Level 4 Est. Patient 11:55:42 CROP ADJUSTER Jerrod Blackwell MD [facility] CPT-39797 Level 3 Est. Patient 10:29:34 CROP ADJUSTER Jerrod Blackwell MD [facility] CPT-13605 Level 3 New Patient 11:57:16 CROP ADJUSTER Jerrod Blackwell MD [facility]
--- OUTSIDE RECORDS SUMMARY | 2019-05-15 23:58 | XMS REPORT | Clinical Summary ---
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 Shagufta Fonseca INTERNAL AUDIT MANAGER Other specified diseases of sebaceous glands Weight [...] Take 1/2 tablet at HS ZOLPIDEM TARTRATE 08631682372 Active Nitza Deb Active MIRTAZAPINE 15 MG ORAL TABS 1 every evening for depression/nutrition MIRTAZAPINE 51156189374 Active Jerrod Blackwell MD Active HALOPERIDOL LACTATE 2 MG/ML ORAL CONC 0.5mg by mouth twice daily HALOPERIDOL LACTATE 91402356398 No Longer Active Shagufta Yokum INTERNAL AUDIT MANAGER Active EXELON 4.6 MG/24HR TRANS PT24 Apply one daily RIVASTIGMINE 78017161464 No Longer Active Shagufta Yokum INTERNAL AUDIT MANAGER Active LORAZEPAM 0.5 MG TABS 1 tablet daily as needed for severe aggitation/anxiety LORAZEPAM 07057904511 Active Jerrod Blackwell MD Active DONEPEZIL HCL 10 MG TBDP 1 qHS DONEPEZIL HCL 13523267833 No Longer Active Nitza Deb Active MIRTAZAPINE 30 MG TABS 1 tab at bedtime MIRTAZAPINE 93347089541 No Longer Active Nitza Deb Active RIVASTIGMINE TARTRATE 1.5 MG CAPS 1 cap every evening RIVASTIGMINE TARTRATE 46230979358 No Longer Active Nitza Deb Active MAGNESIUM CITRATE 1.745 GM/30ML SOLN 60ml po times one. MAGNESIUM CITRATE 78665872017 No Longer Active Jerrod Blackwell MD Active CIPRO 250 MG TAB 1 tablet by mouth twice daily CIPROFLOXACIN HCL 86799149287 No Longer Active Jerrod Blackwell MD Active ANTI-DIARRHEAL 2 MG CAPS Take 1 capsule every 4 to 6 hours as needed for diarrhea LOPERAMIDE HCL 87801755756 No Longer Active Jerord Blackwell MD Active ATIVAN 0.5 MG TAB 1 twice a day as needed LORAZEPAM 97765552096 No Longer Active Jerrod Blackwell MD Active REMERON 15 MG TABS 1 every night for depression MIRTAZAPINE 25191074076 No Longer Active Jerrod Blackwell MD Active NAMENDA 5 MG TABS 1 twice a day for memory MEMANTINE HCL 80110278420 No Longer Active Jerrod Blackwell MD Active TYLENOL 325 MG TAB 2 tablets every four to six hours as needed for pain ACETAMINOPHEN 79190618547 Active Jerord Blackwell MD Active DONEPEZIL HCL 5 MG TABS 1 every evening, Increase to 10mg every evening after 1 month DONEPEZIL HCL 13089577963 No Longer Active Jerrod Blackwell MD Active EQ MILK OF MAGNESIA SUSP Take 30mL every 6hrs. as needed for constipation MAGNESIUM HYDROXIDE SUSP 26998995453 Active Jerrod Blackwell MD Active DONEPEZIL HCL 5 MG TABS 1 every evening, Increase to 10mg every evening after 1 month DONEPEZIL HCL 5 MG TABS 194642 DONEPEZIL HCL Inactive NAMENDA 5 MG TABS 1 twice a day for memory NAMENDA 5 MG TABS 907426 MEMANTINE HCL Inactive REMERON 15 MG TABS 1 every night for depression REMERON 15 MG TABS 040799 MIRTAZAPINE Inactive ATIVAN 0.5 MG TAB 1 twice a day as needed ATIVAN 0.5 MG TAB 376916 LORAZEPAM Inactive ANTI-DIARRHEAL 2 MG CAPS Take 1 capsule every 4 to 6 hours as needed for diarrhea ANTI-DIARRHEAL 2 MG CAPS 553725 LOPERAMIDE HCL Inactive CIPRO 250 MG TAB 1 tablet by mouth twice daily CIPRO 250 MG TAB 572753 CIPROFLOXACIN HCL Inactive MAGNESIUM CITRATE 1.745 GM/30ML SOLN 60ml po times one. MAGNESIUM CITRATE 1.745 GM/30ML SOLN 4614983 MAGNESIUM CITRATE Inactive RIVASTIGMINE TARTRATE 1.5 MG CAPS 1 cap every evening RIVASTIGMINE TARTRATE 1.5 MG CAPS 399790 RIVASTIGMINE TARTRATE Inactive MIRTAZAPINE 30 MG TABS 1 tab at bedtime MIRTAZAPINE 30 MG TABS 982237 MIRTAZAPINE Inactive DONEPEZIL HCL 10 MG TBDP 1 qHS DONEPEZIL HCL 10 MG TBDP 132210 DONEPEZIL HCL Inactive EXELON 4.6 MG/24HR TRANS PT24 Apply one daily EXELON 4.6 MG/24HR TRANS PT24 RIVASTIGMINE Inactive HALOPERIDOL LACTATE 2 MG/ML ORAL CONC 0.5mg by mouth twice daily HALOPERIDOL LACTATE 2 MG/ML ORAL CONC 071050 HALOPERIDOL LACTATE Inactive Advance Directives Directive Description [...] ... - Chemistry sodium, serum 131 mmol/L 084-867 2551/08/04 potassium, serum 4.7 mmol/L 3.5-5.2 chloride, serum [...] [phone] Encounters Code Encounter Date Provider Facility CPT-79917 Level 4 Est. Patient 11:23:55 CDT Jerrod Blackwell MD [facility] CPT-64387 Level 3 Est. Patient 12:57:00 CDT Shagufta Fonseca APRN [facility] CPT-18491 Level 3 Est. Patient 15:37:18 CDT Jerrod Blackwell MD [facility] CPT-83994 Level 3 Est. Patient 12:08:11 CDT Jerrod Blackwell MD [facility] CPT-56991 Level 3 Est. Patient 16:03:05 HEALTH AND SAFETY SPECIALIST Jerrod Blackwell MD [facility] CPT-82719 Level 4 Est. Patient 11:55:42 HEALTH AND SAFETY SPECIALIST Jerrod Blackwell MD [facility] CPT-75545 Level 3 Est. Patient 10:29:34 HEALTH AND SAFETY SPECIALIST Jerrod Blackwell MD [facility] CPT-52079 Level 3 New Patient 11:57:16 HEALTH AND SAFETY SPECIALIST Jerrod Blackwell MD [facility]
--- OUTSIDE RECORDS SUMMARY | 2019-05-15 23:59 | XMS REPORT | Clinical Summary ---
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 Shagufta Fonseca CLERK TRAVEL RESERVATIONS Other specified diseases of sebaceous glands Weight [...] 1 po qHS PRN Insomnia ZOLPIDEM TARTRATE 27544564513 Active Nitza Deb Active MIRTAZAPINE 15 MG ORAL TABS 1 every evening for depression/nutrition MIRTAZAPINE 89342617415 Active Jerrod Blackwell MD Active HALOPERIDOL LACTATE 2 MG/ML ORAL CONC 0.5mg by mouth twice daily HALOPERIDOL LACTATE 03837382687 No Longer Active Shagufta Yokum CLERK TRAVEL RESERVATIONS Active EXELON 4.6 MG/24HR TRANS PT24 Apply one daily RIVASTIGMINE 83666731007 No Longer Active Shagufta Yokum CLERK TRAVEL RESERVATIONS Active LORAZEPAM 0.5 MG TABS 1 tablet daily as needed for severe aggitation/anxiety LORAZEPAM 58433163032 Active Jerrod Blackwell MD Active DONEPEZIL HCL 10 MG TBDP 1 qHS DONEPEZIL HCL 54851625466 No Longer Active Nitza Deb Active MIRTAZAPINE 30 MG TABS 1 tab at bedtime MIRTAZAPINE 45697411915 No Longer Active Nitza Deb Active RIVASTIGMINE TARTRATE 1.5 MG CAPS 1 cap every evening RIVASTIGMINE TARTRATE 49767404267 No Longer Active Nitza Deb Active MAGNESIUM CITRATE 1.745 GM/30ML SOLN 60ml po times one. MAGNESIUM CITRATE 45041700548 No Longer Active Jerrod Blackwell MD Active CIPRO 250 MG TAB 1 tablet by mouth twice daily CIPROFLOXACIN HCL 90200659211 No Longer Active Jerrod Blackwell MD Active ANTI-DIARRHEAL 2 MG CAPS Take 1 capsule every 4 to 6 hours as needed for diarrhea LOPERAMIDE HCL 47151942924 No Longer Active Jerrod Blackwell MD Active ATIVAN 0.5 MG TAB 1 twice a day as needed LORAZEPAM 37896603828 No Longer Active Jerrod Blackwell MD Active REMERON 15 MG TABS 1 every night for depression MIRTAZAPINE 82664936271 No Longer Active Jerrod Blackwell MD Active NAMENDA 5 MG TABS 1 twice a day for memory MEMANTINE HCL 46041162001 No Longer Active Jerrod Blackwell MD Active TYLENOL 325 MG TAB 2 tablets every four to six hours as needed for pain ACETAMINOPHEN 88866648783 Active Jerrod Blackwell MD Active DONEPEZIL HCL 5 MG TABS 1 every evening, Increase to 10mg every evening after 1 month DONEPEZIL HCL 04419335623 No Longer Active Jerrod Blackwell MD Active EQ MILK OF MAGNESIA SUSP Take 30mL every 6hrs. as needed for constipation MAGNESIUM HYDROXIDE SUSP 75697036087 Active Jerrod Blackwell MD Active DONEPEZIL HCL 5 MG TABS 1 every evening, Increase to 10mg every evening after 1 month DONEPEZIL HCL 5 MG TABS 164942 DONEPEZIL HCL Inactive NAMENDA 5 MG TABS 1 twice a day for memory NAMENDA 5 MG TABS MEMANTINE HCL Inactive REMERON 15 MG TABS 1 every night for depression REMERON 15 MG TABS 004172 MIRTAZAPINE Inactive ATIVAN 0.5 MG TAB 1 twice a day as needed ATIVAN 0.5 MG TAB 440307 LORAZEPAM Inactive ANTI-DIARRHEAL 2 MG CAPS Take 1 capsule every 4 to 6 hours as needed for diarrhea ANTI-DIARRHEAL 2 MG CAPS 642176 LOPERAMIDE HCL Inactive CIPRO 250 MG TAB 1 tablet by mouth twice daily CIPRO 250 MG TAB 933574 CIPROFLOXACIN HCL Inactive MAGNESIUM CITRATE 1.745 GM/30ML SOLN 60ml po times one. MAGNESIUM CITRATE 1.745 GM/30ML SOLN 0960766 MAGNESIUM CITRATE Inactive RIVASTIGMINE TARTRATE 1.5 MG CAPS 1 cap every evening RIVASTIGMINE TARTRATE 1.5 MG CAPS 596256 RIVASTIGMINE TARTRATE Inactive MIRTAZAPINE 30 MG TABS 1 tab at bedtime MIRTAZAPINE 30 MG TABS 518453 MIRTAZAPINE Inactive DONEPEZIL HCL 10 MG TBDP 1 qHS DONEPEZIL HCL 10 MG TBDP 742397 DONEPEZIL HCL Inactive EXELON 4.6 MG/24HR TRANS PT24 Apply one daily EXELON 4.6 MG/24HR TRANS PT24 RIVASTIGMINE Inactive HALOPERIDOL LACTATE 2 MG/ML ORAL CONC 0.5mg by mouth twice daily HALOPERIDOL LACTATE 2 MG/ML ORAL CONC 759474 HALOPERIDOL LACTATE Inactive Advance Directives Directive Description [...] ... - Chemistry sodium, serum 131 mmol/L 042-100 2026/08/04 potassium, serum 4.7 mmol/L 3.5-5.2 chloride, serum [...] Thyroid Stimulating Hormone (L), ... - Hematology mean corpuscular volume, RBC 86 fL 80-97 hematocrit, blood 39.3 % 36.0-46.0 hemoglobin, blood 13.6 g/dL 12.0-16.0 erythrocyte (RBC) count 4.55 10^6/MM^3 10*6/mm3 4.04-5.48 leukocyte count, blood 6.1 10^3/MM^3 10*3/mm3 4.6-10.2 mean corpuscular hemoglobin, RBC 29.9 pg 27.0-31.2 mean corpuscular hemoglobin concentration, RBC 34.6 G/DL % 31.8-35.4 red blood cell distribution width 13.8 % 11.6-14.8 platelet count 370 10^3/MM^3 10*3/mm3 142-424 Encounters Code Encounter Date Provider Facility CPT-66736 Level 4 Est. Patient 11:23:55 CDT Jerrod Blackwell MD [facility] CPT-69204 Level 3 Est. Patient 12:57:00 CDT Shagufta Fonseca APRN [facility] CPT-71085 Level 3 Est. Patient 15:37:18 CDT Jerrod Blackwell MD [facility] CPT-57945 Level 3 Est. Patient 12:08:11 CDT Jerrod Blackwell MD [facility] CPT-81168 Level 3 Est. Patient 16:03:05 DESIGN MAKER Jerrod Blackwell MD [facility] CPT-76741 Level 4 Est. Patient 11:55:42 DESIGN MAKER Jerrod Blackwell MD [facility] CPT-10802 Level 3 Est. Patient 10:29:34 DESIGN MAKER Jerrod Blackwell MD [facility] CPT-82158 Level 3 New Patient 11:57:16 DESIGN MAKER Jerrod Blackwell MD [facility]
--- OUTSIDE RECORDS SUMMARY | 2019-05-15 23:59 | XMS REPORT | Clinical Summary ---
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 Shagufta Fonseca DATA MANAGEMENT ENGINEER Other specified diseases of sebaceous glands Weight [...] Take 1/2 tablet at HS ZOLPIDEM TARTRATE 53663890781 Active Jerrod Blackwell MD Active MIRTAZAPINE 15 MG ORAL TABS 1 every evening for depression/nutrition MIRTAZAPINE 48805905788 Active Jerrod Blackwell MD Active HALOPERIDOL LACTATE 2 MG/ML ORAL CONC 0.5mg by mouth twice daily HALOPERIDOL LACTATE 02025880476 No Longer Active Shagufta Yokum DATA MANAGEMENT ENGINEER Active EXELON 4.6 MG/24HR TRANS PT24 Apply one daily RIVASTIGMINE 79808784260 No Longer Active Shagufta Yokum DATA MANAGEMENT ENGINEER Active LORAZEPAM 0.5 MG TABS 1 tablet daily as needed for severe aggitation/anxiety LORAZEPAM 67546632994 Active Jerrod Blackwell MD Active DONEPEZIL HCL 10 MG TBDP 1 qHS DONEPEZIL HCL 42292424228 No Longer Active Nitza Deb Active MIRTAZAPINE 30 MG TABS 1 tab at bedtime MIRTAZAPINE 55518708025 No Longer Active Nitza Deb Active RIVASTIGMINE TARTRATE 1.5 MG CAPS 1 cap every evening RIVASTIGMINE TARTRATE 48823056201 No Longer Active Nitza Deb Active MAGNESIUM CITRATE 1.745 GM/30ML SOLN 60ml po times one. MAGNESIUM CITRATE 28606003553 No Longer Active Jerrod Blackwell MD Active CIPRO 250 MG TAB 1 tablet by mouth twice daily CIPROFLOXACIN HCL 85263438453 No Longer Active Jerrod Blackwell MD Active ANTI-DIARRHEAL 2 MG CAPS Take 1 capsule every 4 to 6 hours as needed for diarrhea LOPERAMIDE HCL 67301317860 No Longer Active Jerrod Blackwell MD Active ATIVAN 0.5 MG TAB 1 twice a day as needed LORAZEPAM 06646222665 No Longer Active Jerrod Blackwell MD Active REMERON 15 MG TABS 1 every night for depression MIRTAZAPINE 07765386724 No Longer Active Jerrod Blackwell MD Active NAMENDA 5 MG TABS 1 twice a day for memory MEMANTINE HCL 27117541445 No Longer Active Jerrod Blackwell MD Active TYLENOL 325 MG TAB 2 tablets every four to six hours as needed for pain ACETAMINOPHEN 87664639475 Active Jerrod Blackwell MD Active DONEPEZIL HCL 5 MG TABS 1 every evening, Increase to 10mg every evening after 1 month DONEPEZIL HCL 79863281832 No Longer Active Jerrod Blackwell MD Active EQ MILK OF MAGNESIA SUSP Take 30mL every 6hrs. as needed for constipation MAGNESIUM HYDROXIDE SUSP 13822397487 Active Jerrod Blackwell MD Active DONEPEZIL HCL 5 MG TABS 1 every evening, Increase to 10mg every evening after 1 month DONEPEZIL HCL 5 MG TABS 545923 DONEPEZIL HCL Inactive NAMENDA 5 MG TABS 1 twice a day for memory NAMENDA 5 MG TABS 248997 MEMANTINE HCL Inactive REMERON 15 MG TABS 1 every night for depression REMERON 15 MG TABS 589112 MIRTAZAPINE Inactive ATIVAN 0.5 MG TAB 1 twice a day as needed ATIVAN 0.5 MG TAB 977254 LORAZEPAM Inactive ANTI-DIARRHEAL 2 MG CAPS Take 1 capsule every 4 to 6 hours as needed for diarrhea ANTI-DIARRHEAL 2 MG CAPS 438550 LOPERAMIDE HCL Inactive CIPRO 250 MG TAB 1 tablet by mouth twice daily CIPRO 250 MG TAB 789468 CIPROFLOXACIN HCL Inactive MAGNESIUM CITRATE 1.745 GM/30ML SOLN 60ml po times one. MAGNESIUM CITRATE 1.745 GM/30ML SOLN 7800759 MAGNESIUM CITRATE Inactive RIVASTIGMINE TARTRATE 1.5 MG CAPS 1 cap every evening RIVASTIGMINE TARTRATE 1.5 MG CAPS 748240 RIVASTIGMINE TARTRATE Inactive MIRTAZAPINE 30 MG TABS 1 tab at bedtime MIRTAZAPINE 30 MG TABS 361788 MIRTAZAPINE Inactive DONEPEZIL HCL 10 MG TBDP 1 qHS DONEPEZIL HCL 10 MG TBDP 502325 DONEPEZIL HCL Inactive EXELON 4.6 MG/24HR TRANS PT24 Apply one daily EXELON 4.6 MG/24HR TRANS PT24 851022 RIVASTIGMINE Inactive HALOPERIDOL LACTATE 2 MG/ML ORAL CONC 0.5mg by mouth twice daily HALOPERIDOL LACTATE 2 MG/ML ORAL CONC 384437 HALOPERIDOL LACTATE Inactive Advance Directives Directive Description [...] ... - Chemistry sodium, serum 131 mmol/L 385-887 2865/08/04 potassium, serum 4.7 mmol/L 3.5-5.2 chloride, serum [...] 142-424 Encounters Code Encounter Date Provider Facility CPT-95259 Level 4 Est. Patient 11:23:55 CDT Jerrod Blackwell MD [facility] CPT-12737 Level 3 Est. Patient 12:57:00 CDT Shagufta Fonseca APRN [facility] CPT-08292 Level 3 Est. Patient 15:37:18 CDT Jerrod Blackwell MD [facility] CPT-76437 Level 3 Est. Patient 12:08:11 CDT Jerrod Blackwell MD [facility] CPT-47522 Level 3 Est. 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 Patient 11:55:42 AIRCRAFT LOADMASTER SUPERINTENDENT Jerrod Blackwell MD [facility] CPT-62095 Level 3 Est. Patient 10:29:34 AIRCRAFT LOADMASTER SUPERINTENDENT Jerrod Blackwell MD [facility] CPT-66834 Level 3 New Patient 11:57:16 AIRCRAFT LOADMASTER SUPERINTENDENT Jerrod Blackwell MD [facility]
--- OUTSIDE RECORDS SUMMARY | 2019-05-15 23:59 | XMS REPORT | Clinical Summary ---
Author Author Admin, GI Organization 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 Other specified diseases of sebaceous glands Weight [...] Take 1/2 tablet at HS ZOLPIDEM TARTRATE 08226328278 Active Mary Gallo APRN Active MIRTAZAPINE 15 MG ORAL TABS 1 every evening for depression/nutrition MIRTAZAPINE 75945700904 Active Jerrod Blackwell MD Active HALOPERIDOL LACTATE 2 MG/ML ORAL CONC 0.5mg by mouth twice daily HALOPERIDOL LACTATE 62358620032 No Longer Active Shagufta Fonseca APRN Active EXELON 4.6 MG/24HR TRANS PT24 Apply one daily RIVASTIGMINE 89397467887 No Longer Active Shagufta Fonseca APRN Active LORAZEPAM 0.5 MG TABS 1 tablet daily as needed for severe aggitation/anxiety LORAZEPAM 30197591715 Active Jerrod Blackwell MD Active DONEPEZIL HCL 10 MG TBDP 1 qHS DONEPEZIL HCL 15103677500 No Longer Active Nitza Deb Active MIRTAZAPINE 30 MG TABS 1 tab at bedtime MIRTAZAPINE 56234101751 No Longer Active Nitza Deb Active RIVASTIGMINE TARTRATE 1.5 MG CAPS 1 cap every evening RIVASTIGMINE TARTRATE 86270588882 No Longer Active Nitza Deb Active MAGNESIUM CITRATE 1.745 GM/30ML SOLN 60ml po times one. MAGNESIUM CITRATE 97620795171 No Longer Active Jerrod Blackwell MD Active CIPRO 250 MG TAB 1 tablet by mouth twice daily CIPROFLOXACIN HCL 26547679669 No Longer Active Jerrod Blackwell MD Active ANTI-DIARRHEAL 2 MG CAPS Take 1 capsule every 4 to 6 hours as needed for diarrhea LOPERAMIDE HCL 12267017321 No Longer Active Jerrod Blackwell MD Active ATIVAN 0.5 MG TAB 1 twice a day as needed LORAZEPAM 00322114769 No Longer Active Jerrod Blackwell MD Active REMERON 15 MG TABS 1 every night for depression MIRTAZAPINE 35378212805 No Longer Active Jerrod Blackwell MD Active NAMENDA 5 MG TABS 1 twice a day for memory MEMANTINE HCL 69186043503 No Longer Active Jerrod Blackwell MD Active TYLENOL 325 MG TAB 2 tablets every four to six hours as needed for pain ACETAMINOPHEN 31304406922 Active Jerrod Blackwell MD Active DONEPEZIL HCL 5 MG TABS 1 every evening, Increase to 10mg every evening after 1 month DONEPEZIL HCL 91054095470 No Longer Active Jerrod Blackwell MD Active EQ MILK OF MAGNESIA SUSP Take 30mL every 6hrs. as needed for constipation MAGNESIUM HYDROXIDE SUSP 23398656656 Active Jerrod Blackwell MD Active DONEPEZIL HCL 5 MG TABS 1 every evening, Increase to 10mg every evening after 1 month DONEPEZIL HCL 5 MG TABS 390772 DONEPEZIL HCL Inactive NAMENDA 5 MG TABS 1 twice a day for memory NAMENDA 5 MG TABS 262434 MEMANTINE HCL Inactive REMERON 15 MG TABS 1 every night for depression REMERON 15 MG TABS 337400 MIRTAZAPINE Inactive ATIVAN 0.5 MG TAB 1 twice a day as needed ATIVAN 0.5 MG TAB 479150 LORAZEPAM Inactive ANTI-DIARRHEAL 2 MG CAPS Take 1 capsule every 4 to 6 hours as needed for diarrhea ANTI-DIARRHEAL 2 MG CAPS 650189 LOPERAMIDE HCL Inactive CIPRO 250 MG TAB 1 tablet by mouth twice daily CIPRO 250 MG TAB 751751 CIPROFLOXACIN HCL Inactive MAGNESIUM CITRATE 1.745 GM/30ML SOLN 60ml po times one. MAGNESIUM CITRATE 1.745 GM/30ML SOLN 7958739 MAGNESIUM CITRATE Inactive RIVASTIGMINE TARTRATE 1.5 MG CAPS 1 cap every evening RIVASTIGMINE TARTRATE 1.5 MG CAPS 181924 RIVASTIGMINE TARTRATE Inactive MIRTAZAPINE 30 MG TABS 1 tab at bedtime MIRTAZAPINE 30 MG TABS 630235 MIRTAZAPINE Inactive DONEPEZIL HCL 10 MG TBDP 1 qHS DONEPEZIL HCL 10 MG TBDP 652249 DONEPEZIL HCL Inactive EXELON 4.6 MG/24HR TRANS PT24 Apply one daily EXELON 4.6 MG/24HR TRANS PT24 351745 RIVASTIGMINE Inactive HALOPERIDOL LACTATE 2 MG/ML ORAL CONC 0.5mg by mouth twice daily HALOPERIDOL LACTATE 2 MG/ML ORAL CONC 223540 HALOPERIDOL LACTATE Inactive Advance Directives Directive Description Start Date ORDER APPOINTING TEMPORARY GUARDIAN AND CONSERVATOR LETTER OF GUARDIANSHIP AND CONSERVATORSHIP Encounters Code Encounter Date Provider Facility CPT-54699 Level 4 Est. Patient 11:23:55 CDT Jerrod Blackwell MD [facility] CPT-51396 Level 3 Est. Patient 12:57:00 CDT Shagufta Fonseca APRN [facility] CPT-29835 Level 3 Est. Patient 15:37:18 CDT Jerrod Blackwell MD [facility] CPT-53524 Level 3 Est. Patient 12:08:11 CDT Jerrod Blackwell MD [facility] CPT-97332 Level 3 Est. 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 CPT-67409 Level 4 Est. Patient 11:55:42 HELP DESK SUPERVISOR Jerrod Blackwell MD [facility] CPT-13957 Level 3 Est. Patient 10:29:34 HELP DESK SUPERVISOR Jerrod Blackwell MD [facility] CPT-88299 Level 3 New Patient 11:57:16 HELP DESK SUPERVISOR Jerrod Blackwell MD [facility]
--- OUTSIDE RECORDS SUMMARY | 2019-05-15 23:59 | XMS REPORT | Clinical Summary ---
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 Shagufta Fonseca SERVICE COORDINATOR Other specified diseases of sebaceous glands Weight loss 783.21 Active Jerrod Blackwell MD Loss of weight Dysuria ICD-788.1 Inactive Jerrod Blackwell MD Urinary tract infection ICD-599.0 Inactive Jerrod Blackwell MD Upper respiratory infection ICD-465.9 Inactive Jerrod Blackwell MD Medication List Medication Instructions Start Date Stop Date Generic Name NDC Status Provider Patient Instruction MIRTAZAPINE 15 MG ORAL TABS 1 every evening for depression/nutrition MIRTAZAPINE 43443951107 Active Jerrod Blackwell MD Active HALOPERIDOL LACTATE 2 MG/ML ORAL CONC 0.5mg by mouth twice daily HALOPERIDOL LACTATE 49399385937 No Longer Active Shagufta Nickkum SERVICE COORDINATOR Active EXELON 4.6 MG/24HR TRANS PT24 Apply one daily RIVASTIGMINE 89638588523 No Longer Active Shagufta Yokum SERVICE COORDINATOR Active LORAZEPAM 0.5 MG TABS 1 tablet daily as needed for severe aggitation/anxiety LORAZEPAM 00491551805 Active Jerrod Blackwell MD Active DONEPEZIL HCL 10 MG TBDP 1 qHS DONEPEZIL HCL 90985788312 No Longer Active Nitza Deb Active MIRTAZAPINE 30 MG TABS 1 tab at bedtime MIRTAZAPINE 02938912018 No Longer Active Nitza Deb Active RIVASTIGMINE TARTRATE 1.5 MG CAPS 1 cap every evening RIVASTIGMINE TARTRATE 62993012687 No Longer Active Nitza Deb Active MAGNESIUM CITRATE 1.745 GM/30ML SOLN 60ml po times one. MAGNESIUM CITRATE 74533910058 No Longer Active Jerrod Blackwell MD Active CIPRO 250 MG TAB 1 tablet by mouth twice daily CIPROFLOXACIN HCL 89236847742 No Longer Active Jerrod Blackwell MD Active ANTI-DIARRHEAL 2 MG CAPS Take 1 capsule every 4 to 6 hours as needed for diarrhea LOPERAMIDE HCL 91325435332 No Longer Active Jerrod Blackwell MD Active ATIVAN 0.5 MG TAB 1 twice a day as needed LORAZEPAM 08351498436 No Longer Active Jerrod Blackwell MD Active REMERON 15 MG TABS 1 every night for depression MIRTAZAPINE 73767359363 No Longer Active Jerrod Blackwell MD Active NAMENDA 5 MG TABS 1 twice a day for memory MEMANTINE HCL 19553354551 No Longer Active Jerrod Blackwell MD Active TYLENOL 325 MG TAB 2 tablets every four to six hours as needed for pain ACETAMINOPHEN 73582564084 Active Jerrod Blackwell MD Active DONEPEZIL HCL 5 MG TABS 1 every evening, Increase to 10mg every evening after 1 month DONEPEZIL HCL 32418040193 No Longer Active Jerrod Blackwell MD Active EQ MILK OF MAGNESIA SUSP Take 30mL every 6hrs. as needed for constipation MAGNESIUM HYDROXIDE SUSP 36165130135 Active Jerrod Blackwell MD Active DONEPEZIL HCL 5 MG TABS 1 every evening, Increase to 10mg every evening after 1 month DONEPEZIL HCL 5 MG TABS 122603 DONEPEZIL HCL Inactive NAMENDA 5 MG TABS 1 twice a day for memory NAMENDA 5 MG TABS MEMANTINE HCL Inactive REMERON 15 MG TABS 1 every night for depression REMERON 15 MG TABS 935995 MIRTAZAPINE Inactive ATIVAN 0.5 MG TAB 1 twice a day as needed ATIVAN 0.5 MG TAB 300026 LORAZEPAM Inactive ANTI-DIARRHEAL 2 MG CAPS Take 1 capsule every 4 to 6 hours as needed for diarrhea ANTI-DIARRHEAL 2 MG CAPS 218127 LOPERAMIDE HCL Inactive CIPRO 250 MG TAB 1 tablet by mouth twice daily CIPRO 250 MG TAB 217649 CIPROFLOXACIN HCL Inactive MAGNESIUM CITRATE 1.745 GM/30ML SOLN 60ml po times one. MAGNESIUM CITRATE 1.745 GM/30ML SOLN 7116092 MAGNESIUM CITRATE Inactive RIVASTIGMINE TARTRATE 1.5 MG CAPS 1 cap every evening RIVASTIGMINE TARTRATE 1.5 MG CAPS 865784 RIVASTIGMINE TARTRATE Inactive MIRTAZAPINE 30 MG TABS 1 tab at bedtime MIRTAZAPINE 30 MG TABS 535274 MIRTAZAPINE Inactive DONEPEZIL HCL 10 MG TBDP 1 qHS DONEPEZIL HCL 10 MG TBDP 720963 DONEPEZIL HCL Inactive EXELON 4.6 MG/24HR TRANS PT24 Apply one daily EXELON 4.6 MG/24HR TRANS PT24 RIVASTIGMINE Inactive HALOPERIDOL LACTATE 2 MG/ML ORAL CONC 0.5mg by mouth twice daily HALOPERIDOL LACTATE 2 MG/ML ORAL CONC 950783 HALOPERIDOL LACTATE Inactive Advance Directives Directive Description [...] ... - Chemistry sodium, serum 131 mmol/L 959-469 0275/08/04 potassium, serum 4.7 mmol/L 3.5-5.2 chloride, serum [...] 142-424 Encounters Code Encounter Date Provider Facility CPT-27114 Level 4 Est. Patient 11:23:55 CDT Jerrod Blackwell MD [facility] CPT-43850 Level 3 Est. Patient 12:57:00 CDT Shagufta Fonseca APRN [facility] CPT-39379 Level 3 Est. Patient 15:37:18 CDT Jerrod Blackwell MD [facility] CPT-66826 Level 3 Est. Patient 12:08:11 CDT Jerrod Blackwell MD [facility] CPT-02878 Level 3 Est. 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 Patient 11:55:42 VIDEO POKER FLOORMAN Jerrod Blackwell MD [facility] CPT-08537 Level 3 Est. Patient 10:29:34 VIDEO POKER FLOORMAN Jerrod Blackwell MD [facility] CPT-43243 Level 3 New Patient 11:57:16 VIDEO POKER FLOORMAN Jerrod Blackwell MD [facility]
--- OUTSIDE RECORDS SUMMARY | 2019-05-15 23:59 | XMS REPORT | Clinical Summary ---
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 Shagufta Fonseca REPORTING COORDINATOR Other specified diseases of sebaceous glands [...] Take 1/2 tablet at HS ZOLPIDEM TARTRATE 37869791877 Active Mary Gallo APRN Active MIRTAZAPINE 15 MG ORAL TABS 1 every evening for depression/nutrition MIRTAZAPINE 19618758501 Active Jerrod Blackwell MD Active HALOPERIDOL LACTATE 2 MG/ML ORAL CONC 0.5mg by mouth twice daily HALOPERIDOL LACTATE 44957208353 No Longer Active Shagufta Fonseca APRN Active EXELON 4.6 MG/24HR TRANS PT24 Apply one daily RIVASTIGMINE 23909838444 No Longer Active Shagufta Fonseca APRN Active LORAZEPAM 0.5 MG TABS 1 tablet daily as needed for severe aggitation/anxiety LORAZEPAM 14550209326 Active Jerrod Blackwell MD Active DONEPEZIL HCL 10 MG TBDP 1 qHS DONEPEZIL HCL 49187085010 No Longer Active Nitza Deb Active MIRTAZAPINE 30 MG TABS 1 tab at bedtime MIRTAZAPINE 20714251786 No Longer Active Nitza Deb Active RIVASTIGMINE TARTRATE 1.5 MG CAPS 1 cap every evening RIVASTIGMINE TARTRATE 40695109163 No Longer Active Nitza Deb Active MAGNESIUM CITRATE 1.745 GM/30ML SOLN 60ml po times one. MAGNESIUM CITRATE 44677080206 No Longer Active Jerrod Blackwell MD Active CIPRO 250 MG TAB 1 tablet by mouth twice daily CIPROFLOXACIN HCL 07232363868 No Longer Active Jerrod Blackwell MD Active ANTI-DIARRHEAL 2 MG CAPS Take 1 capsule every 4 to 6 hours as needed for diarrhea LOPERAMIDE HCL 09180182443 No Longer Active Jerrod Blackwell MD Active ATIVAN 0.5 MG TAB 1 twice a day as needed LORAZEPAM 19689489017 No Longer Active Jerrod Blackwell MD Active REMERON 15 MG TABS 1 every night for depression MIRTAZAPINE 67948660441 No Longer Active Jerrod Blackwell MD Active NAMENDA 5 MG TABS 1 twice a day for memory MEMANTINE HCL 93085768724 No Longer Active Jerrod Blackwell MD Active TYLENOL 325 MG TAB 2 tablets every four to six hours as needed for pain ACETAMINOPHEN 83918837124 Active Jerrod Blackwell MD Active DONEPEZIL HCL 5 MG TABS 1 every evening, Increase to 10mg every evening after 1 month DONEPEZIL HCL 43953060599 No Longer Active Jerrod Blackwell MD Active EQ MILK OF MAGNESIA SUSP Take 30mL every 6hrs. as needed for constipation MAGNESIUM HYDROXIDE SUSP 71893266749 Active Jerrod Blackwell MD Active DONEPEZIL HCL 5 MG TABS 1 every evening, Increase to 10mg every evening after 1 month DONEPEZIL HCL 5 MG TABS 998570 DONEPEZIL HCL Inactive NAMENDA 5 MG TABS 1 twice a day for memory NAMENDA 5 MG TABS 614719 MEMANTINE HCL Inactive REMERON 15 MG TABS 1 every night for depression REMERON 15 MG TABS 106963 MIRTAZAPINE Inactive ATIVAN 0.5 MG TAB 1 twice a day as needed ATIVAN 0.5 MG TAB 969814 LORAZEPAM Inactive ANTI-DIARRHEAL 2 MG CAPS Take 1 capsule every 4 to 6 hours as needed for diarrhea ANTI-DIARRHEAL 2 MG CAPS 805333 LOPERAMIDE HCL Inactive CIPRO 250 MG TAB 1 tablet by mouth twice daily CIPRO 250 MG TAB 191995 CIPROFLOXACIN HCL Inactive MAGNESIUM CITRATE 1.745 GM/30ML SOLN 60ml po times one. MAGNESIUM CITRATE 1.745 GM/30ML SOLN 6164591 MAGNESIUM CITRATE Inactive RIVASTIGMINE TARTRATE 1.5 MG CAPS 1 cap every evening RIVASTIGMINE TARTRATE 1.5 MG CAPS 615980 RIVASTIGMINE TARTRATE Inactive MIRTAZAPINE 30 MG TABS 1 tab at bedtime MIRTAZAPINE 30 MG TABS 548426 MIRTAZAPINE Inactive DONEPEZIL HCL 10 MG TBDP 1 qHS DONEPEZIL HCL 10 MG TBDP 995507 DONEPEZIL HCL Inactive EXELON 4.6 MG/24HR TRANS PT24 Apply one daily EXELON 4.6 MG/24HR TRANS PT24 670712 RIVASTIGMINE Inactive HALOPERIDOL LACTATE 2 MG/ML ORAL CONC 0.5mg by mouth twice daily HALOPERIDOL LACTATE 2 MG/ML ORAL CONC 855233 HALOPERIDOL LACTATE Inactive Advance Directives Directive Description Start Date ORDER APPOINTING TEMPORARY GUARDIAN AND CONSERVATOR LETTER OF GUARDIANSHIP AND CONSERVATORSHIP Encounters Code Encounter Date Provider Facility CPT-98617 Level 4 Est. Patient 11:23:55 CDT Jerrod Blackwell MD [facility] CPT-90561 Level 3 Est. Patient 12:57:00 CDT Shagufta Fonseca APRN [facility] CPT-15471 Level 3 Est. Patient 15:37:18 CDT Jerrod Blackwell MD [facility] CPT-45882 Level 3 Est. Patient 12:08:11 CDT Jerrod Blackwell MD [facility] CPT-49984 Level 3 Est. Patient 16:03:05 ADULT PSYCHIATRIST Jerrod Blackwell MD [facility] CPT-05587 Level 4 Est. Patient 11:55:42 ADULT PSYCHIATRIST Jerrod Blackwell MD [facility] CPT-05443 Level 3 Est. Patient 10:29:34 ADULT PSYCHIATRIST Jerrod Blackwell MD [facility] CPT-59136 Level 3 New Patient 11:57:16 ADULT PSYCHIATRIST Jerrod Blackwell MD [facility]
--- OUTSIDE RECORDS SUMMARY | 2019-05-16 | XMS REPORT | Clinical Summary ---
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 Shagufta Fonseca [place] MACHINIST Other specified diseases of sebaceous glands Weight [...] Take 1/2 tablet at HS ZOLPIDEM TARTRATE 34744229209 Active Mary Gallo APRN Active MIRTAZAPINE 15 MG ORAL TABS 1 every evening for depression/nutrition MIRTAZAPINE 45216340104 Active Jerrod Blackwell MD Active HALOPERIDOL LACTATE 2 MG/ML ORAL CONC 0.5mg by mouth twice daily HALOPERIDOL LACTATE 76986697140 No Longer Active Shagufta Fonseca APRN Active EXELON 4.6 MG/24HR TRANS PT24 Apply one daily RIVASTIGMINE 88349722283 No Longer Active Shagufta Fonseca APRN Active LORAZEPAM 0.5 MG TABS 1 tablet daily as needed for severe aggitation/anxiety LORAZEPAM 17583146296 Active Jerrod Blackwell MD Active DONEPEZIL HCL 10 MG TBDP 1 qHS DONEPEZIL HCL 85136344435 No Longer Active Nitza Deb Active MIRTAZAPINE 30 MG TABS 1 tab at bedtime MIRTAZAPINE 73595224281 No Longer Active Nitza Deb Active RIVASTIGMINE TARTRATE 1.5 MG CAPS 1 cap every evening RIVASTIGMINE TARTRATE 49882110555 No Longer Active Nitza Deb Active MAGNESIUM CITRATE 1.745 GM/30ML SOLN 60ml po times one. MAGNESIUM CITRATE 59124198620 No Longer Active Jerrod Blackwell MD Active CIPRO 250 MG TAB 1 tablet by mouth twice daily CIPROFLOXACIN HCL 28732221412 No Longer Active Jerrod Blackwell MD Active ANTI-DIARRHEAL 2 MG CAPS Take 1 capsule every 4 to 6 hours as needed for diarrhea LOPERAMIDE HCL 59825936229 No Longer Active Jerrod Blackwell MD Active ATIVAN 0.5 MG TAB 1 twice a day as needed LORAZEPAM 39644831295 No Longer Active Jerrod Blackwell MD Active REMERON 15 MG TABS 1 every night for depression MIRTAZAPINE 56101446562 No Longer Active Jerrod Blackwell MD Active NAMENDA 5 MG TABS 1 twice a day for memory MEMANTINE HCL 09840230879 No Longer Active Jerrod Blackwell MD Active TYLENOL 325 MG TAB 2 tablets every four to six hours as needed for pain ACETAMINOPHEN 85140305088 Active Jerrod Blackewll MD Active DONEPEZIL HCL 5 MG TABS 1 every evening, Increase to 10mg every evening after 1 month DONEPEZIL HCL 15926088370 No Longer Active Jerrod Blackwell MD Active EQ MILK OF MAGNESIA SUSP Take 30mL every 6hrs. as needed for constipation MAGNESIUM HYDROXIDE SUSP 99992366710 Active Jerrod Blackwell MD Active DONEPEZIL HCL 5 MG TABS 1 every evening, Increase to 10mg every evening after 1 month DONEPEZIL HCL 5 MG TABS 374777 DONEPEZIL HCL Inactive NAMENDA 5 MG TABS 1 twice a day for memory NAMENDA 5 MG TABS 026393 MEMANTINE HCL Inactive REMERON 15 MG TABS 1 every night for depression REMERON 15 MG TABS 945823 MIRTAZAPINE Inactive ATIVAN 0.5 MG TAB 1 twice a day as needed ATIVAN 0.5 MG TAB 728001 LORAZEPAM Inactive ANTI-DIARRHEAL 2 MG CAPS Take 1 capsule every 4 to 6 hours as needed for diarrhea ANTI-DIARRHEAL 2 MG CAPS 122998 LOPERAMIDE HCL Inactive CIPRO 250 MG TAB 1 tablet by mouth twice daily CIPRO 250 MG TAB 813571 CIPROFLOXACIN HCL Inactive MAGNESIUM CITRATE 1.745 GM/30ML SOLN 60ml po times one. MAGNESIUM CITRATE 1.745 GM/30ML SOLN 5127588 MAGNESIUM CITRATE Inactive RIVASTIGMINE TARTRATE 1.5 MG CAPS 1 cap every evening RIVASTIGMINE TARTRATE 1.5 MG CAPS 019333 RIVASTIGMINE TARTRATE Inactive MIRTAZAPINE 30 MG TABS 1 tab at bedtime MIRTAZAPINE 30 MG TABS 771877 MIRTAZAPINE Inactive DONEPEZIL HCL 10 MG TBDP 1 qHS DONEPEZIL HCL 10 MG TBDP 943975 DONEPEZIL HCL Inactive EXELON 4.6 MG/24HR TRANS PT24 Apply one daily EXELON 4.6 MG/24HR TRANS PT24 238715 RIVASTIGMINE Inactive HALOPERIDOL LACTATE 2 MG/ML ORAL CONC 0.5mg by mouth twice daily HALOPERIDOL LACTATE 2 MG/ML ORAL CONC 276116 HALOPERIDOL LACTATE Inactive Advance Directives Directive Description Start Date ORDER APPOINTING TEMPORARY GUARDIAN AND CONSERVATOR LETTER OF GUARDIANSHIP AND CONSERVATORSHIP Encounters Code Encounter Date Provider Facility CPT-32469 Level 4 Est. Patient 11:23:55 CDT Jerrod Blackwell MD [facility] CPT-89085 Level 3 Est. Patient 12:57:00 CDT Shagufta Fonseca APRN [facility] CPT-48373 Level 3 Est. Patient 15:37:18 CDT Jerrod Blackwell MD [facility] CPT-29639 Level 3 Est. Patient 12:08:11 CDT Jerrod Blackwell MD [facility] CPT-87594 Level 3 Est. Patient 16:03:05 MINE MANAGER Jerrod Blackwell MD [facility] CPT-58764 Level 4 Est. Patient 11:55:42 MINE MANAGER Jerrod Blackwell MD [facility] CPT-19024 Level 3 Est. Patient 10:29:34 MINE MANAGER Jerrod Blackwell MD [facility] CPT-01347 Level 3 New Patient 11:57:16 MINE MANAGER Jerrod Blackwell MD [facility]
--- OUTSIDE RECORDS SUMMARY | 2019-05-16 | XMS REPORT | Clinical Summary ---
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 Shagufta Fonseca INSURANCE BROKER Other specified diseases of sebaceous glands Weight [...] Take 1/2 tablet at HS ZOLPIDEM TARTRATE 06234959590 Active Shaguftajames Fonseca APRN Active MIRTAZAPINE 15 MG ORAL TABS 1 every evening for depression/nutrition MIRTAZAPINE 82195509009 Active Jerrod Blackwell MD Active HALOPERIDOL LACTATE 2 MG/ML ORAL CONC 0.5mg by mouth twice daily HALOPERIDOL LACTATE 40412850651 No Longer Active Shagufta Nickbrian BO Active EXELON 4.6 MG/24HR TRANS PT24 Apply one daily RIVASTIGMINE 94323106321 No Longer Active Shagufta Fonseca APRN Active LORAZEPAM 0.5 MG TABS 1 tablet daily as needed for severe aggitation/anxiety LORAZEPAM 06471387396 Active Jerrod Blackwell MD Active DONEPEZIL HCL 10 MG TBDP 1 qHS DONEPEZIL HCL 15581001310 No Longer Active Nitza Deb Active MIRTAZAPINE 30 MG TABS 1 tab at bedtime MIRTAZAPINE 37353719762 No Longer Active Nitza Deb Active RIVASTIGMINE TARTRATE 1.5 MG CAPS 1 cap every evening RIVASTIGMINE TARTRATE 47518276737 No Longer Active Nitza Deb Active MAGNESIUM CITRATE 1.745 GM/30ML SOLN 60ml po times one. MAGNESIUM CITRATE 77267103926 No Longer Active Jerrod Blackwell MD Active CIPRO 250 MG TAB 1 tablet by mouth twice daily CIPROFLOXACIN HCL 60882828895 No Longer Active Jerrod Blackwell MD Active ANTI-DIARRHEAL 2 MG CAPS Take 1 capsule every 4 to 6 hours as needed for diarrhea LOPERAMIDE HCL 88466174305 No Longer Active Jerrod Blackwell MD Active ATIVAN 0.5 MG TAB 1 twice a day as needed LORAZEPAM 24273733135 No Longer Active Jerrod Blackwell MD Active REMERON 15 MG TABS 1 every night for depression MIRTAZAPINE 16715360164 No Longer Active Jerrod Blackwell MD Active NAMENDA 5 MG TABS 1 twice a day for memory MEMANTINE HCL 92898412742 No Longer Active Jerrod Blackwell MD Active TYLENOL 325 MG TAB 2 tablets every four to six hours as needed for pain ACETAMINOPHEN 81820464401 Active Jerrod Blackwell MD Active DONEPEZIL HCL 5 MG TABS 1 every evening, Increase to 10mg every evening after 1 month DONEPEZIL HCL 61996752196 No Longer Active Jerrod Blackwell MD Active EQ MILK OF MAGNESIA SUSP Take 30mL every 6hrs. as needed for constipation MAGNESIUM HYDROXIDE SUSP 81371158293 Active Jerrod Blackwell MD Active DONEPEZIL HCL 5 MG TABS 1 every evening, Increase to 10mg every evening after 1 month DONEPEZIL HCL 5 MG TABS 523839 DONEPEZIL HCL Inactive NAMENDA 5 MG TABS 1 twice a day for memory NAMENDA 5 MG TABS 635488 MEMANTINE HCL Inactive REMERON 15 MG TABS 1 every night for depression REMERON 15 MG TABS 100331 MIRTAZAPINE Inactive ATIVAN 0.5 MG TAB 1 twice a day as needed ATIVAN 0.5 MG TAB 006479 LORAZEPAM Inactive ANTI-DIARRHEAL 2 MG CAPS Take 1 capsule every 4 to 6 hours as needed for diarrhea ANTI-DIARRHEAL 2 MG CAPS 711170 LOPERAMIDE HCL Inactive CIPRO 250 MG TAB 1 tablet by mouth twice daily CIPRO 250 MG TAB 243972 CIPROFLOXACIN HCL Inactive MAGNESIUM CITRATE 1.745 GM/30ML SOLN 60ml po times one. MAGNESIUM CITRATE 1.745 GM/30ML SOLN 6725774 MAGNESIUM CITRATE Inactive RIVASTIGMINE TARTRATE 1.5 MG CAPS 1 cap every evening RIVASTIGMINE TARTRATE 1.5 MG CAPS 467855 RIVASTIGMINE TARTRATE Inactive MIRTAZAPINE 30 MG TABS 1 tab at bedtime MIRTAZAPINE 30 MG TABS 003678 MIRTAZAPINE Inactive DONEPEZIL HCL 10 MG TBDP 1 qHS DONEPEZIL HCL 10 MG TBDP 261465 DONEPEZIL HCL Inactive EXELON 4.6 MG/24HR TRANS PT24 Apply one daily EXELON 4.6 MG/24HR TRANS PT24 540291 RIVASTIGMINE Inactive HALOPERIDOL LACTATE 2 MG/ML ORAL CONC 0.5mg by mouth twice daily HALOPERIDOL LACTATE 2 MG/ML ORAL CONC 718824 HALOPERIDOL LACTATE Inactive Advance Directives Directive Description [...] ... - Chemistry sodium, serum 131 mmol/L 480-011 1389/08/04 potassium, serum 4.7 mmol/L 3.5-5.2 chloride, serum [...] 142-424 Encounters Code Encounter Date Provider Facility CPT-22296 Level 4 Est. Patient 11:23:55 CDT Jerrod Blackwell MD [facility] CPT-24484 Level 3 Est. Patient 12:57:00 CDT Shagufta Fonseca APRN [facility] CPT-97901 Level 3 Est. Patient 15:37:18 CDT Jerrod Blackwell MD [facility] CPT-42695 Level 3 Est. Patient 12:08:11 CDT Jerrod Blackwell MD [facility] CPT-35468 Level 3 Est. Patient 16:03:05 DYNAMITE CARTRIDGE CRIMPER Jerrod Blackwell MD [facility] CPT-60706 Level 4 Est. Patient 11:55:42 DYNAMITE CARTRIDGE CRIMPER Jerrod Blackwell MD [facility] CPT-67564 Level 3 Est. Patient 10:29:34 DYNAMITE CARTRIDGE CRIMPER Jerrod Blackwell MD [facility] CPT-31628 Level 3 New Patient 11:57:16 DYNAMITE CARTRIDGE CRIMPER Jerrod Blackwell MD [facility]
--- OUTSIDE RECORDS SUMMARY | 2019-05-16 | XMS REPORT | Clinical Summary ---
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 Shagufta Fonseca TIRE STRIPPER Other specified diseases of sebaceous glands Weight [...] Take 1/2 tablet at HS ZOLPIDEM TARTRATE 19922779122 Active Shaguftajames Fonseca APRN Active MIRTAZAPINE 15 MG ORAL TABS 1 every evening for depression/nutrition MIRTAZAPINE 77324148930 Active Jerrod Blackwell MD Active HALOPERIDOL LACTATE 2 MG/ML ORAL CONC 0.5mg by mouth twice daily HALOPERIDOL LACTATE 98648954685 No Longer Active Shagufta Nickbrian BO Active EXELON 4.6 MG/24HR TRANS PT24 Apply one daily RIVASTIGMINE 01429823718 No Longer Active Shagufta Fonseca APRN Active LORAZEPAM 0.5 MG TABS 1 tablet daily as needed for severe aggitation/anxiety LORAZEPAM 43406790331 Active Jerrod Blackwell MD Active DONEPEZIL HCL 10 MG TBDP 1 qHS DONEPEZIL HCL 58276694871 No Longer Active Nitza Deb Active MIRTAZAPINE 30 MG TABS 1 tab at bedtime MIRTAZAPINE 12156144370 No Longer Active Nitza Deb Active RIVASTIGMINE TARTRATE 1.5 MG CAPS 1 cap every evening RIVASTIGMINE TARTRATE 75566151771 No Longer Active Nitza Deb Active MAGNESIUM CITRATE 1.745 GM/30ML SOLN 60ml po times one. MAGNESIUM CITRATE 87899542274 No Longer Active Jerrod Blackwell MD Active CIPRO 250 MG TAB 1 tablet by mouth twice daily CIPROFLOXACIN HCL 09086958420 No Longer Active Jerord Blackwell MD Active ANTI-DIARRHEAL 2 MG CAPS Take 1 capsule every 4 to 6 hours as needed for diarrhea LOPERAMIDE HCL 85726517875 No Longer Active Jerrod Blackwell MD Active ATIVAN 0.5 MG TAB 1 twice a day as needed LORAZEPAM 94642636287 No Longer Active Jerrod Blackwell MD Active REMERON 15 MG TABS 1 every night for depression MIRTAZAPINE 57152278559 No Longer Active Jerrod Blackwell MD Active NAMENDA 5 MG TABS 1 twice a day for memory MEMANTINE HCL 07725889507 No Longer Active Jerrod Blackwell MD Active TYLENOL 325 MG TAB 2 tablets every four to six hours as needed for pain ACETAMINOPHEN 38102876128 Active Jerrod Blackwell MD Active DONEPEZIL HCL 5 MG TABS 1 every evening, Increase to 10mg every evening after 1 month DONEPEZIL HCL 38160301844 No Longer Active Jerrod Blackwell MD Active EQ MILK OF MAGNESIA SUSP Take 30mL every 6hrs. as needed for constipation MAGNESIUM HYDROXIDE SUSP 66396665818 Active Jerrod Blackwell MD Active DONEPEZIL HCL 5 MG TABS 1 every evening, Increase to 10mg every evening after 1 month DONEPEZIL HCL 5 MG TABS 185633 DONEPEZIL HCL Inactive NAMENDA 5 MG TABS 1 twice a day for memory NAMENDA 5 MG TABS 504190 MEMANTINE HCL Inactive REMERON 15 MG TABS 1 every night for depression REMERON 15 MG TABS 079916 MIRTAZAPINE Inactive ATIVAN 0.5 MG TAB 1 twice a day as needed ATIVAN 0.5 MG TAB 437797 LORAZEPAM Inactive ANTI-DIARRHEAL 2 MG CAPS Take 1 capsule every 4 to 6 hours as needed for diarrhea ANTI-DIARRHEAL 2 MG CAPS 569243 LOPERAMIDE HCL Inactive CIPRO 250 MG TAB 1 tablet by mouth twice daily CIPRO 250 MG TAB 845641 CIPROFLOXACIN HCL Inactive MAGNESIUM CITRATE 1.745 GM/30ML SOLN 60ml po times one. MAGNESIUM CITRATE 1.745 GM/30ML SOLN 5981388 MAGNESIUM CITRATE Inactive RIVASTIGMINE TARTRATE 1.5 MG CAPS 1 cap every evening RIVASTIGMINE TARTRATE 1.5 MG CAPS 130405 RIVASTIGMINE TARTRATE Inactive MIRTAZAPINE 30 MG TABS 1 tab at bedtime MIRTAZAPINE 30 MG TABS 551083 MIRTAZAPINE Inactive DONEPEZIL HCL 10 MG TBDP 1 qHS DONEPEZIL HCL 10 MG TBDP 488359 DONEPEZIL HCL Inactive EXELON 4.6 MG/24HR TRANS PT24 Apply one daily EXELON 4.6 MG/24HR TRANS PT24 503654 RIVASTIGMINE Inactive HALOPERIDOL LACTATE 2 MG/ML ORAL CONC 0.5mg by mouth twice daily HALOPERIDOL LACTATE 2 MG/ML ORAL CONC 497636 HALOPERIDOL LACTATE Inactive Advance Directives Directive Description [...] E&M - 3141-9 105.4 [lb_av] Weight Measured Diagnostic Results Date Name Value Unit Range Description Lab Report: CBC, Comp. Metabolic Panel, Thyroid Stimulating Hormone (L), ... - Chemistry potassium, serum 4.7 mmol/L 3.5-5.2 chloride, serum [...] 0.36-3.74 thyroxine, serum, free 1.29 ng/dL 0.76-1.46 sodium, serum 131 mmol/L 136-145 Lab Report: CBC, Comp. Metabolic Panel, Thyroid Stimulating Hormone (L), ... - Hematology platelet count 370 10^3/MM^3 10*3/mm3 268-320 7238/08/04 red blood cell distribution width 13.8 % 11.6-14.8 mean corpuscular hemoglobin concentration, RBC 34.6 G/DL % 31.8-35.4 mean corpuscular hemoglobin, RBC 29.9 pg 27.0-31.2 mean corpuscular volume, RBC 86 fL 80-97 hematocrit, blood 39.3 % 36.0-46.0 hemoglobin, blood 13.6 g/dL 12.0-16.0 erythrocyte (RBC) count 4.55 10^6/MM^3 10*6/mm3 4.04-5.48 leukocyte count, blood 6.1 10^3/MM^3 10*3/mm3 4.6-10.2 Encounters Code Encounter Date Provider Facility CPT-26154 Level 4 Est. Patient 11:23:55 CDT Jerrod Blackwell MD [facility] CPT-50904 Level 3 Est. Patient 12:57:00 CDT Shagufta Fonseca APRN [facility] CPT-53886 Level 3 Est. Patient 15:37:18 CDT Jerrod Blackwell MD [facility] CPT-53030 Level 3 Est. Patient 12:08:11 CDT Jerrod Blackwell MD [facility] CPT-65477 Level 3 Est. 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 Patient 11:55:42 EDUCATION FINANCE PROCESSOR Jerrod Blackwell MD [facility] CPT-49736 Level 3 Est. Patient 10:29:34 EDUCATION FINANCE PROCESSOR Jerrod Blackwell MD [facility] CPT-17947 Level 3 New Patient 11:57:16 EDUCATION FINANCE PROCESSOR Jerrod Blackwell MD [facility]
--- OUTSIDE RECORDS SUMMARY | 2019-05-16 00:01 | XMS REPORT | Clinical Summary ---
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 Shagufta Fonseca ANATOMY PROFESSOR Other specified diseases of sebaceous glands Weight [...] Take 1/2 tablet at HS ZOLPIDEM TARTRATE 47080412696 Active SLIME Lux Active MIRTAZAPINE 15 MG ORAL TABS 1 every evening for depression/nutrition MIRTAZAPINE 26740475489 Active Jerrod Blackwell MD Active HALOPERIDOL LACTATE 2 MG/ML ORAL CONC 0.5mg by mouth twice daily HALOPERIDOL LACTATE 02340337355 No Longer Active Shagufta Yokum ANATOMY PROFESSOR Active EXELON 4.6 MG/24HR TRANS PT24 Apply one daily RIVASTIGMINE 24738426297 No Longer Active Shaguftajames Woodum ANATOMY PROFESSOR Active LORAZEPAM 0.5 MG TABS 1 tablet daily as needed for severe aggitation/anxiety LORAZEPAM 49059348657 Active Jerrod Blackwell MD Active DONEPEZIL HCL 10 MG TBDP 1 qHS DONEPEZIL HCL 93735202241 No Longer Active Nitza Deb Active MIRTAZAPINE 30 MG TABS 1 tab at bedtime MIRTAZAPINE 08406081777 No Longer Active Nitza Deb Active RIVASTIGMINE TARTRATE 1.5 MG CAPS 1 cap every evening RIVASTIGMINE TARTRATE 86848874570 No Longer Active Nitza Deb Active MAGNESIUM CITRATE 1.745 GM/30ML SOLN 60ml po times one. MAGNESIUM CITRATE 54524388496 No Longer Active Jerrod Blackwell MD Active CIPRO 250 MG TAB 1 tablet by mouth twice daily CIPROFLOXACIN HCL 41805118800 No Longer Active Jerrod Blackwell MD Active ANTI-DIARRHEAL 2 MG CAPS Take 1 capsule every 4 to 6 hours as needed for diarrhea LOPERAMIDE HCL 73073948439 No Longer Active Jerrod Blackwell MD Active ATIVAN 0.5 MG TAB 1 twice a day as needed LORAZEPAM 75931275507 No Longer Active Jerrod Blackwell MD Active REMERON 15 MG TABS 1 every night for depression MIRTAZAPINE 89990514652 No Longer Active Jerrod Blackwell MD Active NAMENDA 5 MG TABS 1 twice a day for memory MEMANTINE HCL 71021583149 No Longer Active Jerrod Blackwell MD Active TYLENOL 325 MG TAB 2 tablets every four to six hours as needed for pain ACETAMINOPHEN 71007360400 Active Jerrod Blackwell MD Active DONEPEZIL HCL 5 MG TABS 1 every evening, Increase to 10mg every evening after 1 month DONEPEZIL HCL 91081385628 No Longer Active Jerrod Blackwell MD Active EQ MILK OF MAGNESIA SUSP Take 30mL every 6hrs. as needed for constipation MAGNESIUM HYDROXIDE SUSP 65998578599 Active Jerrod Blackwell MD Active DONEPEZIL HCL 5 MG TABS 1 every evening, Increase to 10mg every evening after 1 month DONEPEZIL HCL 5 MG TABS 830888 DONEPEZIL HCL Inactive NAMENDA 5 MG TABS 1 twice a day for memory NAMENDA 5 MG TABS 736273 MEMANTINE HCL Inactive REMERON 15 MG TABS 1 every night for depression REMERON 15 MG TABS 689581 MIRTAZAPINE Inactive ATIVAN 0.5 MG TAB 1 twice a day as needed ATIVAN 0.5 MG TAB 342139 LORAZEPAM Inactive ANTI-DIARRHEAL 2 MG CAPS Take 1 capsule every 4 to 6 hours as needed for diarrhea ANTI-DIARRHEAL 2 MG CAPS 385548 LOPERAMIDE HCL Inactive CIPRO 250 MG TAB 1 tablet by mouth twice daily CIPRO 250 MG TAB 150831 CIPROFLOXACIN HCL Inactive MAGNESIUM CITRATE 1.745 GM/30ML SOLN 60ml po times one. MAGNESIUM CITRATE 1.745 GM/30ML SOLN 6103169 MAGNESIUM CITRATE Inactive RIVASTIGMINE TARTRATE 1.5 MG CAPS 1 cap every evening RIVASTIGMINE TARTRATE 1.5 MG CAPS 917814 RIVASTIGMINE TARTRATE Inactive MIRTAZAPINE 30 MG TABS 1 tab at bedtime MIRTAZAPINE 30 MG TABS 072241 MIRTAZAPINE Inactive DONEPEZIL HCL 10 MG TBDP 1 qHS DONEPEZIL HCL 10 MG TBDP 216127 DONEPEZIL HCL Inactive EXELON 4.6 MG/24HR TRANS PT24 Apply one daily EXELON 4.6 MG/24HR TRANS PT24 407707 RIVASTIGMINE Inactive HALOPERIDOL LACTATE 2 MG/ML ORAL CONC 0.5mg by mouth twice daily HALOPERIDOL LACTATE 2 MG/ML ORAL CONC 137410 HALOPERIDOL LACTATE Inactive Advance Directives Directive Description [...] E&M - 3141-9 100.2 [lb_av] Weight Measured Diagnostic Results Date Name Value Unit Range Description Lab Report: CBC, Comp. Metabolic Panel, Thyroid Stimulating Hormone (L), ... - Chemistry sodium, serum 131 mmol/L 386-203 9979/08/04 potassium, serum 4.7 mmol/L 3.5-5.2 chloride, serum [...] 142-424 Encounters Code Encounter Date Provider Facility CPT-88340 Level 4 Est. Patient 11:23:55 CDT Jerrod Blackwell MD [facility] CPT-01664 Level 3 Est. Patient 12:57:00 CDT Shagufta Raymundo ANUPAM [facility] CPT-31949 Level 3 Est. Patient 15:37:18 CDT Jerrod Blackwell MD [facility] CPT-85073 Level 3 Est. Patient 12:08:11 CDT Jerrod Blackwell MD [facility] CPT-14816 Level 3 Est. Patient 16:03:05 FLOORHAND Jerrod Blackwell MD [facility] CPT-74162 Level 4 Est. Patient 11:55:42 FLOORHAND Jerrod Blackwell MD [facility] CPT-35652 Level 3 Est. Patient 10:29:34 FLOORHAND Jerrod Blackwell MD [facility] CPT-57767 Level 3 New Patient 11:57:16 FLOORHAND Jerrod Blackwell MD [facility]
--- OUTSIDE RECORDS SUMMARY | 2019-05-16 00:01 | XMS REPORT | Clinical Summary ---
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 Shagufta Fonseca JUKEBOX OPERATOR Other specified diseases of sebaceous glands Dysuria ICD-788.1 Inactive Jerrod Blackwell MD Urinary tract infection ICD-599.0 Inactive Jerrod Blackwell MD Upper respiratory infection ICD-465.9 Inactive Jerrod Blackwell MD Medication List Medication Instructions Start Date Stop Date Generic Name NDC Status Provider Patient Instruction HALOPERIDOL LACTATE 2 MG/ML ORAL CONC 0.5mg by mouth twice daily HALOPERIDOL LACTATE 04037548903 No Longer Active Shagufta Fonseca JUKEBOX OPERATOR Active EXELON 4.6 MG/24HR TRANS PT24 Apply one daily RIVASTIGMINE 63873165716 No Longer Active Shagufta Fonseca JUKEBOX OPERATOR Active LORAZEPAM 0.5 MG TABS 1 tablet daily as needed for severe aggitation/anxiety LORAZEPAM 23301222935 Active Jerrod Blackwell MD Active DONEPEZIL HCL 10 MG TBDP 1 qHS DONEPEZIL HCL 85828999296 No Longer Active Nitza Deb Active MIRTAZAPINE 30 MG TABS 1 tab at bedtime MIRTAZAPINE 51135408347 No Longer Active Nitza Deb Active RIVASTIGMINE TARTRATE 1.5 MG CAPS 1 cap every evening RIVASTIGMINE TARTRATE 78072197742 No Longer Active Nitza Deb Active MAGNESIUM CITRATE 1.745 GM/30ML SOLN 60ml po times one. MAGNESIUM CITRATE 04480842975 No Longer Active Jerrod Blackwell MD Active CIPRO 250 MG TAB 1 tablet by mouth twice daily CIPROFLOXACIN HCL 27616816514 No Longer Active Jerrod Blackwell MD Active ANTI-DIARRHEAL 2 MG CAPS Take 1 capsule every 4 to 6 hours as needed for diarrhea LOPERAMIDE HCL 56391178597 No Longer Active Jerrod Blackwell MD Active ATIVAN 0.5 MG TAB 1 twice a day as needed LORAZEPAM 33223804947 No Longer Active Jerrod Blackwell MD Active REMERON 15 MG TABS 1 every night for depression MIRTAZAPINE 49391584729 No Longer Active Jerrod Blackwell MD Active NAMENDA 5 MG TABS 1 twice a day for memory MEMANTINE HCL 86532095833 No Longer Active eJrrod Blackwell MD Active TYLENOL 325 MG TAB 2 tablets every four to six hours as needed for pain ACETAMINOPHEN 02022216090 Active Jerrod Blackwell MD Active DONEPEZIL HCL 5 MG TABS 1 every evening, Increase to 10mg every evening after 1 month DONEPEZIL HCL 54796129117 No Longer Active Jerrod Blackwell MD Active EQ MILK OF MAGNESIA SUSP Take 30mL every 6hrs. as needed for constipation MAGNESIUM HYDROXIDE SUSP 34817135987 Active Jerrod Blackwell MD Active DONEPEZIL HCL 5 MG TABS 1 every evening, Increase to 10mg every evening after 1 month DONEPEZIL HCL 5 MG TABS 470717 DONEPEZIL HCL Inactive NAMENDA 5 MG TABS 1 twice a day for memory NAMENDA 5 MG TABS MEMANTINE HCL Inactive REMERON 15 MG TABS 1 every night for depression REMERON 15 MG TABS 947835 MIRTAZAPINE Inactive ATIVAN 0.5 MG TAB 1 twice a day as needed ATIVAN 0.5 MG TAB 236886 LORAZEPAM Inactive ANTI-DIARRHEAL 2 MG CAPS Take 1 capsule every 4 to 6 hours as needed for diarrhea ANTI-DIARRHEAL 2 MG CAPS 450422 LOPERAMIDE HCL Inactive CIPRO 250 MG TAB 1 tablet by mouth twice daily CIPRO 250 MG TAB 728445 CIPROFLOXACIN HCL Inactive MAGNESIUM CITRATE 1.745 GM/30ML SOLN 60ml po times one. MAGNESIUM CITRATE 1.745 GM/30ML SOLN 2918433 MAGNESIUM CITRATE Inactive RIVASTIGMINE TARTRATE 1.5 MG CAPS 1 cap every evening RIVASTIGMINE TARTRATE 1.5 MG CAPS 056247 RIVASTIGMINE TARTRATE Inactive MIRTAZAPINE 30 MG TABS 1 tab at bedtime MIRTAZAPINE 30 MG TABS 787119 MIRTAZAPINE Inactive DONEPEZIL HCL 10 MG TBDP 1 qHS DONEPEZIL HCL 10 MG TBDP 612776 DONEPEZIL HCL Inactive EXELON 4.6 MG/24HR TRANS PT24 Apply one daily EXELON 4.6 MG/24HR TRANS PT24 RIVASTIGMINE Inactive HALOPERIDOL LACTATE 2 MG/ML ORAL CONC 0.5mg by mouth twice daily HALOPERIDOL LACTATE 2 MG/ML ORAL CONC 921941 HALOPERIDOL LACTATE Inactive Advance Directives Directive Description [...] Measured Encounters Code Encounter Date Provider Facility CPT-75138 Level 3 Est. Patient 12:57:00 CDT Shagufta Fosneca APRN [facility] CPT-28806 Level 3 Est. Patient 15:37:18 CDT Jerrod Blackwell MD [facility] CPT-85488 Level 3 Est. Patient 12:08:11 CDT Jerrod Blackwell MD [facility] CPT-39344 Level 3 Est. Patient 16:03:05 BEAD PICKER Jerrod Blackwell MD [facility] CPT-74864 Level 4 Est. Patient 11:55:42 BEAD PICKER Jerrod Blackwell MD [facility] CPT-84427 Level 3 Est. Patient 10:29:34 BEAD PICKER Jerrod Blackwell MD [facility] CPT-72835 Level 3 New Patient 11:57:16 BEAD PICKER Jerrod Blackwell MD [facility]
--- OUTSIDE RECORDS SUMMARY | 2019-05-16 00:01 | XMS REPORT | Clinical Summary ---
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 Shagufta Fonseca AIRPLANE CABIN ATTENDANT Other specified diseases of sebaceous glands Weight [...] TABS 1 every evening for depression/nutrition MIRTAZAPINE 11417163286 Active Jerrod Blackwell MD Active HALOPERIDOL LACTATE 2 MG/ML ORAL CONC 0.5mg by mouth twice daily HALOPERIDOL LACTATE 58479061256 No Longer Active Shagufta Nickkum AIRPLANE CABIN ATTENDANT Active EXELON 4.6 MG/24HR TRANS PT24 Apply one daily RIVASTIGMINE 19187886285 No Longer Active Shagufta Yokum AIRPLANE CABIN ATTENDANT Active LORAZEPAM 0.5 MG TABS 1 tablet daily as needed for severe aggitation/anxiety LORAZEPAM 30804784836 Active Jerrod Blackwell MD Active DONEPEZIL HCL 10 MG TBDP 1 qHS DONEPEZIL HCL 12159223740 No Longer Active Nitza Deb Active MIRTAZAPINE 30 MG TABS 1 tab at bedtime MIRTAZAPINE 47624756293 No Longer Active Nitza Deb Active RIVASTIGMINE TARTRATE 1.5 MG CAPS 1 cap every evening RIVASTIGMINE TARTRATE 08190959245 No Longer Active Nitza Deb Active MAGNESIUM CITRATE 1.745 GM/30ML SOLN 60ml po times one. MAGNESIUM CITRATE 84507633499 No Longer Active Jerrod Blackwell MD Active CIPRO 250 MG TAB 1 tablet by mouth twice daily CIPROFLOXACIN HCL 83012819662 No Longer Active Jerrod Blackwell MD Active ANTI-DIARRHEAL 2 MG CAPS Take 1 capsule every 4 to 6 hours as needed for diarrhea LOPERAMIDE HCL 65760231304 No Longer Active Jerrod Blackwell MD Active ATIVAN 0.5 MG TAB 1 twice a day as needed LORAZEPAM 40949585096 No Longer Active Jerrod Blackwell MD Active REMERON 15 MG TABS 1 every night for depression MIRTAZAPINE 04768967037 No Longer Active Jerrod Blackwell MD Active NAMENDA 5 MG TABS 1 twice a day for memory MEMANTINE HCL 84458638735 No Longer Active Jerrod Blackwell MD Active TYLENOL 325 MG TAB 2 tablets every four to six hours as needed for pain ACETAMINOPHEN 25953950755 Active Jerrod Blackwell MD Active DONEPEZIL HCL 5 MG TABS 1 every evening, Increase to 10mg every evening after 1 month DONEPEZIL HCL 97262229250 No Longer Active Jerrod Blackwell MD Active EQ MILK OF MAGNESIA SUSP Take 30mL every 6hrs. as needed for constipation MAGNESIUM HYDROXIDE SUSP 16548631206 Active Jerrod Blackwell MD Active DONEPEZIL HCL 5 MG TABS 1 every evening, Increase to 10mg every evening after 1 month DONEPEZIL HCL 5 MG TABS 940189 DONEPEZIL HCL Inactive NAMENDA 5 MG TABS 1 twice a day for memory NAMENDA 5 MG TABS MEMANTINE HCL Inactive REMERON 15 MG TABS 1 every night for depression REMERON 15 MG TABS 966339 MIRTAZAPINE Inactive ATIVAN 0.5 MG TAB 1 twice a day as needed ATIVAN 0.5 MG TAB 004293 LORAZEPAM Inactive ANTI-DIARRHEAL 2 MG CAPS Take 1 capsule every 4 to 6 hours as needed for diarrhea ANTI-DIARRHEAL 2 MG CAPS 605043 LOPERAMIDE HCL Inactive CIPRO 250 MG TAB 1 tablet by mouth twice daily CIPRO 250 MG TAB 225530 CIPROFLOXACIN HCL Inactive MAGNESIUM CITRATE 1.745 GM/30ML SOLN 60ml po times one. MAGNESIUM CITRATE 1.745 GM/30ML SOLN 5306151 MAGNESIUM CITRATE Inactive RIVASTIGMINE TARTRATE 1.5 MG CAPS 1 cap every evening RIVASTIGMINE TARTRATE 1.5 MG CAPS 139741 RIVASTIGMINE TARTRATE Inactive MIRTAZAPINE 30 MG TABS 1 tab at bedtime MIRTAZAPINE 30 MG TABS 882207 MIRTAZAPINE Inactive DONEPEZIL HCL 10 MG TBDP 1 qHS DONEPEZIL HCL 10 MG TBDP 740191 DONEPEZIL HCL Inactive EXELON 4.6 MG/24HR TRANS PT24 Apply one daily EXELON 4.6 MG/24HR TRANS PT24 RIVASTIGMINE Inactive HALOPERIDOL LACTATE 2 MG/ML ORAL CONC 0.5mg by mouth twice daily HALOPERIDOL LACTATE 2 MG/ML ORAL CONC 286255 HALOPERIDOL LACTATE Inactive Advance Directives Directive Description [...] ... - Chemistry sodium, serum 131 mmol/L 150-466 6077/08/04 potassium, serum 4.7 mmol/L 3.5-5.2 chloride, serum [...] 142-424 Encounters Code Encounter Date Provider Facility CPT-23697 Level 4 Est. Patient 11:23:55 CDT Jerrod Blackwell MD [facility] CPT-21736 Level 3 Est. Patient 12:57:00 CDT Shagufta Fonseca ANUPAM [facility] CPT-36098 Level 3 Est. Patient 15:37:18 CDT Jerrod Blackwell MD [facility] CPT-82235 Level 3 Est. Patient 12:08:11 CDT Jerrod Blackwell MD [facility] CPT-15661 Level 3 Est. Patient 16:03:05 LAND SURVEYOR MANAGER Jerrod Blackwell MD [facility] CPT-87621 Level 4 Est. Patient 11:55:42 LAND SURVEYOR MANAGER Jerrod Blackwell MD [facility] CPT-99586 Level 3 Est. Patient 10:29:34 LAND SURVEYOR MANAGER Jerrod Blackwell MD [facility] CPT-68857 Level 3 New Patient 11:57:16 LAND SURVEYOR MANAGER Jerrod Blackwell MD [facility]
--- OUTSIDE RECORDS SUMMARY | 2019-05-16 00:01 | XMS REPORT | Clinical Summary ---
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 Shagufta Fonseca VETERINARY MILK SPECIALIST Other specified diseases of sebaceous glands Weight [...] Take 1/2 tablet at HS ZOLPIDEM TARTRATE 26531116556 Active Mary Gallo APRN Active MIRTAZAPINE 15 MG ORAL TABS 1 every evening for depression/nutrition MIRTAZAPINE 61530230166 Active Jerrod Blackwell MD Active HALOPERIDOL LACTATE 2 MG/ML ORAL CONC 0.5mg by mouth twice daily HALOPERIDOL LACTATE 68037355079 No Longer Active Shagufta Fonseca APRN Active EXELON 4.6 MG/24HR TRANS PT24 Apply one daily RIVASTIGMINE 14990648740 No Longer Active Shagufta Fonseca APRN Active LORAZEPAM 0.5 MG TABS 1 tablet daily as needed for severe aggitation/anxiety LORAZEPAM 06683089820 Active Jerrod Blackwell MD Active DONEPEZIL HCL 10 MG TBDP 1 qHS DONEPEZIL HCL 20188935842 No Longer Active Nitza Deb Active MIRTAZAPINE 30 MG TABS 1 tab at bedtime MIRTAZAPINE 11400863338 No Longer Active Nitza Deb Active RIVASTIGMINE TARTRATE 1.5 MG CAPS 1 cap every evening RIVASTIGMINE TARTRATE 28078794855 No Longer Active Nitza Deb Active MAGNESIUM CITRATE 1.745 GM/30ML SOLN 60ml po times one. MAGNESIUM CITRATE 07293435948 No Longer Active Jerrod Blackwell MD Active CIPRO 250 MG TAB 1 tablet by mouth twice daily CIPROFLOXACIN HCL 13795216986 No Longer Active Jerrod Blackwell MD Active ANTI-DIARRHEAL 2 MG CAPS Take 1 capsule every 4 to 6 hours as needed for diarrhea LOPERAMIDE HCL 46010841578 No Longer Active Jerrod Blackwell MD Active ATIVAN 0.5 MG TAB 1 twice a day as needed LORAZEPAM 76540237822 No Longer Active Jerrod Blackwell MD Active REMERON 15 MG TABS 1 every night for depression MIRTAZAPINE 01017910124 No Longer Active Jerrod Blackwell MD Active NAMENDA 5 MG TABS 1 twice a day for memory MEMANTINE HCL 57547094136 No Longer Active Jerrod Blackwell MD Active TYLENOL 325 MG TAB 2 tablets every four to six hours as needed for pain ACETAMINOPHEN 12633954290 Active Jerrod Blackwell MD Active DONEPEZIL HCL 5 MG TABS 1 every evening, Increase to 10mg every evening after 1 month DONEPEZIL HCL 90703574846 No Longer Active Jerrod Blackwell MD Active EQ MILK OF MAGNESIA SUSP Take 30mL every 6hrs. as needed for constipation MAGNESIUM HYDROXIDE SUSP 23294717020 Active Jerrod Blackwell MD Active DONEPEZIL HCL 5 MG TABS 1 every evening, Increase to 10mg every evening after 1 month DONEPEZIL HCL 5 MG TABS 732428 DONEPEZIL HCL Inactive NAMENDA 5 MG TABS 1 twice a day for memory NAMENDA 5 MG TABS 676832 MEMANTINE HCL Inactive REMERON 15 MG TABS 1 every night for depression REMERON 15 MG TABS 867916 MIRTAZAPINE Inactive ATIVAN 0.5 MG TAB 1 twice a day as needed ATIVAN 0.5 MG TAB 387775 LORAZEPAM Inactive ANTI-DIARRHEAL 2 MG CAPS Take 1 capsule every 4 to 6 hours as needed for diarrhea ANTI-DIARRHEAL 2 MG CAPS 706481 LOPERAMIDE HCL Inactive CIPRO 250 MG TAB 1 tablet by mouth twice daily CIPRO 250 MG TAB 557283 CIPROFLOXACIN HCL Inactive MAGNESIUM CITRATE 1.745 GM/30ML SOLN 60ml po times one. MAGNESIUM CITRATE 1.745 GM/30ML SOLN 4547990 MAGNESIUM CITRATE Inactive RIVASTIGMINE TARTRATE 1.5 MG CAPS 1 cap every evening RIVASTIGMINE TARTRATE 1.5 MG CAPS 309747 RIVASTIGMINE TARTRATE Inactive MIRTAZAPINE 30 MG TABS 1 tab at bedtime MIRTAZAPINE 30 MG TABS 306862 MIRTAZAPINE Inactive DONEPEZIL HCL 10 MG TBDP 1 qHS DONEPEZIL HCL 10 MG TBDP 578113 DONEPEZIL HCL Inactive EXELON 4.6 MG/24HR TRANS PT24 Apply one daily EXELON 4.6 MG/24HR TRANS PT24 753148 RIVASTIGMINE Inactive HALOPERIDOL LACTATE 2 MG/ML ORAL CONC 0.5mg by mouth twice daily HALOPERIDOL LACTATE 2 MG/ML ORAL CONC 167271 HALOPERIDOL LACTATE Inactive Advance Directives Directive Description Start Date ORDER APPOINTING TEMPORARY GUARDIAN AND CONSERVATOR LETTER OF GUARDIANSHIP AND CONSERVATORSHIP Encounters Code Encounter Date Provider Facility CPT-56696 Level 4 Est. Patient 11:23:55 CDT Jerrod Blackwell MD [facility] CPT-90098 Level 3 Est. Patient 12:57:00 CDT Shagufta Fonseca APRN [facility] CPT-61807 Level 3 Est. Patient 15:37:18 CDT Jerrod Blackwell MD [facility] CPT-60955 Level 3 Est. Patient 12:08:11 CDT Jerrod Blackwell MD [facility] CPT-08799 Level 3 Est. Patient 16:03:05 GANG TAILER Jerrod Blackwell MD [facility] CPT-14839 Level 4 Est. Patient 11:55:42 GANG TAILER Jerrod Blackwell MD [facility] CPT-90344 Level 3 Est. Patient 10:29:34 GANG TAILER Jerrod Blackwell MD [facility] CPT-34818 Level 3 New Patient 11:57:16 GANG TAILER Jrerod Blackwell MD [facility]
--- OUTSIDE RECORDS SUMMARY | 2019-05-16 00:01 | XMS REPORT | Clinical Summary ---
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 Shagufta Fonseca LICENSING WORKER Other specified diseases of sebaceous glands Weight [...] Take 1/2 tablet at HS ZOLPIDEM TARTRATE 05108304587 Active SLIME Lux Active MIRTAZAPINE 15 MG ORAL TABS 1 every evening for depression/nutrition MIRTAZAPINE 76516333384 Active Jerrod Blackwell MD Active HALOPERIDOL LACTATE 2 MG/ML ORAL CONC 0.5mg by mouth twice daily HALOPERIDOL LACTATE 12084804397 No Longer Active Shagufta Yokum LICENSING WORKER Active EXELON 4.6 MG/24HR TRANS PT24 Apply one daily RIVASTIGMINE 36069316183 No Longer Active Shaguftajames Woodum LICENSING WORKER Active LORAZEPAM 0.5 MG TABS 1 tablet daily as needed for severe aggitation/anxiety LORAZEPAM 67597968761 Active Jerrod Blackwell MD Active DONEPEZIL HCL 10 MG TBDP 1 qHS DONEPEZIL HCL 97248534626 No Longer Active Nitza Deb Active MIRTAZAPINE 30 MG TABS 1 tab at bedtime MIRTAZAPINE 79210229921 No Longer Active Nitza Deb Active RIVASTIGMINE TARTRATE 1.5 MG CAPS 1 cap every evening RIVASTIGMINE TARTRATE 47989089976 No Longer Active Nitza Deb Active MAGNESIUM CITRATE 1.745 GM/30ML SOLN 60ml po times one. MAGNESIUM CITRATE 23074544058 No Longer Active Jerrod Blackwell MD Active CIPRO 250 MG TAB 1 tablet by mouth twice daily CIPROFLOXACIN HCL 92396920826 No Longer Active Jerrod Blackwell MD Active ANTI-DIARRHEAL 2 MG CAPS Take 1 capsule every 4 to 6 hours as needed for diarrhea LOPERAMIDE HCL 84728300462 No Longer Active Jerrod Blackwell MD Active ATIVAN 0.5 MG TAB 1 twice a day as needed LORAZEPAM 73979940791 No Longer Active Jerrod Blackwell MD Active REMERON 15 MG TABS 1 every night for depression MIRTAZAPINE 89267771463 No Longer Active Jerrod Blackwell MD Active NAMENDA 5 MG TABS 1 twice a day for memory MEMANTINE HCL 65924379493 No Longer Active Jerrod Blackwell MD Active TYLENOL 325 MG TAB 2 tablets every four to six hours as needed for pain ACETAMINOPHEN 78033118291 Active Jerrod Blackwell MD Active DONEPEZIL HCL 5 MG TABS 1 every evening, Increase to 10mg every evening after 1 month DONEPEZIL HCL 01056395818 No Longer Active Jerrod Blackwell MD Active EQ MILK OF MAGNESIA SUSP Take 30mL every 6hrs. as needed for constipation MAGNESIUM HYDROXIDE SUSP 10992204640 Active Jerrod Blackwell MD Active DONEPEZIL HCL 5 MG TABS 1 every evening, Increase to 10mg every evening after 1 month DONEPEZIL HCL 5 MG TABS 311250 DONEPEZIL HCL Inactive NAMENDA 5 MG TABS 1 twice a day for memory NAMENDA 5 MG TABS 765704 MEMANTINE HCL Inactive REMERON 15 MG TABS 1 every night for depression REMERON 15 MG TABS 873938 MIRTAZAPINE Inactive ATIVAN 0.5 MG TAB 1 twice a day as needed ATIVAN 0.5 MG TAB 456137 LORAZEPAM Inactive ANTI-DIARRHEAL 2 MG CAPS Take 1 capsule every 4 to 6 hours as needed for diarrhea ANTI-DIARRHEAL 2 MG CAPS 257811 LOPERAMIDE HCL Inactive CIPRO 250 MG TAB 1 tablet by mouth twice daily CIPRO 250 MG TAB 313309 CIPROFLOXACIN HCL Inactive MAGNESIUM CITRATE 1.745 GM/30ML SOLN 60ml po times one. MAGNESIUM CITRATE 1.745 GM/30ML SOLN 3772922 MAGNESIUM CITRATE Inactive RIVASTIGMINE TARTRATE 1.5 MG CAPS 1 cap every evening RIVASTIGMINE TARTRATE 1.5 MG CAPS 942223 RIVASTIGMINE TARTRATE Inactive MIRTAZAPINE 30 MG TABS 1 tab at bedtime MIRTAZAPINE 30 MG TABS 347577 MIRTAZAPINE Inactive DONEPEZIL HCL 10 MG TBDP 1 qHS DONEPEZIL HCL 10 MG TBDP 778127 DONEPEZIL HCL Inactive EXELON 4.6 MG/24HR TRANS PT24 Apply one daily EXELON 4.6 MG/24HR TRANS PT24 773782 RIVASTIGMINE Inactive HALOPERIDOL LACTATE 2 MG/ML ORAL CONC 0.5mg by mouth twice daily HALOPERIDOL LACTATE 2 MG/ML ORAL CONC 209043 HALOPERIDOL LACTATE Inactive Advance Directives Directive Description [...] ... - Chemistry sodium, serum 131 mmol/L 356-050 3609/08/04 potassium, serum 4.7 mmol/L 3.5-5.2 chloride, serum [...] [phone] Encounters Code Encounter Date Provider Facility CPT-75038 Level 4 Est. Patient 11:23:55 CDT Jerrod Blackwell MD [facility] CPT-72530 Level 3 Est. Patient 12:57:00 CDT Shagufta Raymundo ANUPAM [facility] CPT-10582 Level 3 Est. Patient 15:37:18 CDT Jerrod Blackwell MD [facility] CPT-45128 Level 3 Est. Patient 12:08:11 CDT Jerrod Blackwell MD [facility] CPT-07596 Level 3 Est. Patient 16:03:05 EARTH OBSERVATIONS CHIEF SCIENTIST Jerrod Blackwell MD [facility] CPT-70137 Level 4 Est. Patient 11:55:42 EARTH OBSERVATIONS CHIEF SCIENTIST Jerrod Blackwell MD [facility] CPT-60163 Level 3 Est. Patient 10:29:34 EARTH OBSERVATIONS CHIEF SCIENTIST Jerrod Blackwell MD [facility] CPT-06372 Level 3 New Patient 11:57:16 EARTH OBSERVATIONS CHIEF SCIENTIST Jerrod Blackwell MD [facility]
--- OUTSIDE RECORDS SUMMARY | 2019-05-16 00:02 | XMS REPORT | Clinical Summary ---
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 Shagufta Fonseca GOLF COURSE DESIGNER Other specified diseases of sebaceous glands Weight [...] TABS 1 every evening for depression/nutrition MIRTAZAPINE 34854271920 Active Jerrod Blackwell MD Active HALOPERIDOL LACTATE 2 MG/ML ORAL CONC 0.5mg by mouth twice daily HALOPERIDOL LACTATE 63165083305 No Longer Active Shagufta Nickkum GOLF COURSE DESIGNER Active EXELON 4.6 MG/24HR TRANS PT24 Apply one daily RIVASTIGMINE 35396609624 No Longer Active Shagufta Yokum GOLF COURSE DESIGNER Active LORAZEPAM 0.5 MG TABS 1 tablet daily as needed for severe aggitation/anxiety LORAZEPAM 47840683275 Active Jerrod Blackwell MD Active DONEPEZIL HCL 10 MG TBDP 1 qHS DONEPEZIL HCL 83624159397 No Longer Active Nitza Deb Active MIRTAZAPINE 30 MG TABS 1 tab at bedtime MIRTAZAPINE 01867224687 No Longer Active Nitza Deb Active RIVASTIGMINE TARTRATE 1.5 MG CAPS 1 cap every evening RIVASTIGMINE TARTRATE 82970502558 No Longer Active Nitza Deb Active MAGNESIUM CITRATE 1.745 GM/30ML SOLN 60ml po times one. MAGNESIUM CITRATE 89550207545 No Longer Active Jerrod Blackwell MD Active CIPRO 250 MG TAB 1 tablet by mouth twice daily CIPROFLOXACIN HCL 41299681934 No Longer Active Jerrod Blackwell MD Active ANTI-DIARRHEAL 2 MG CAPS Take 1 capsule every 4 to 6 hours as needed for diarrhea LOPERAMIDE HCL 86156817900 No Longer Active Jerrod Blackwell MD Active ATIVAN 0.5 MG TAB 1 twice a day as needed LORAZEPAM 35114215463 No Longer Active Jerrod Blackwell MD Active REMERON 15 MG TABS 1 every night for depression MIRTAZAPINE 03519105142 No Longer Active Jerrod Blackwell MD Active NAMENDA 5 MG TABS 1 twice a day for memory MEMANTINE HCL 00861411846 No Longer Active Jerrod Blackwell MD Active TYLENOL 325 MG TAB 2 tablets every four to six hours as needed for pain ACETAMINOPHEN 48995850405 Active Jerrod Blackwell MD Active DONEPEZIL HCL 5 MG TABS 1 every evening, Increase to 10mg every evening after 1 month DONEPEZIL HCL 12191092375 No Longer Active Jerrod Blackwell MD Active EQ MILK OF MAGNESIA SUSP Take 30mL every 6hrs. as needed for constipation MAGNESIUM HYDROXIDE SUSP 27045399970 Active Jerrod Blackwell MD Active DONEPEZIL HCL 5 MG TABS 1 every evening, Increase to 10mg every evening after 1 month DONEPEZIL HCL 5 MG TABS 607454 DONEPEZIL HCL Inactive NAMENDA 5 MG TABS 1 twice a day for memory NAMENDA 5 MG TABS MEMANTINE HCL Inactive REMERON 15 MG TABS 1 every night for depression REMERON 15 MG TABS 753171 MIRTAZAPINE Inactive ATIVAN 0.5 MG TAB 1 twice a day as needed ATIVAN 0.5 MG TAB 295475 LORAZEPAM Inactive ANTI-DIARRHEAL 2 MG CAPS Take 1 capsule every 4 to 6 hours as needed for diarrhea ANTI-DIARRHEAL 2 MG CAPS 275834 LOPERAMIDE HCL Inactive CIPRO 250 MG TAB 1 tablet by mouth twice daily CIPRO 250 MG TAB 156449 CIPROFLOXACIN HCL Inactive MAGNESIUM CITRATE 1.745 GM/30ML SOLN 60ml po times one. MAGNESIUM CITRATE 1.745 GM/30ML SOLN 6705851 MAGNESIUM CITRATE Inactive RIVASTIGMINE TARTRATE 1.5 MG CAPS 1 cap every evening RIVASTIGMINE TARTRATE 1.5 MG CAPS 667654 RIVASTIGMINE TARTRATE Inactive MIRTAZAPINE 30 MG TABS 1 tab at bedtime MIRTAZAPINE 30 MG TABS 384122 MIRTAZAPINE Inactive DONEPEZIL HCL 10 MG TBDP 1 qHS DONEPEZIL HCL 10 MG TBDP 756078 DONEPEZIL HCL Inactive EXELON 4.6 MG/24HR TRANS PT24 Apply one daily EXELON 4.6 MG/24HR TRANS PT24 RIVASTIGMINE Inactive HALOPERIDOL LACTATE 2 MG/ML ORAL CONC 0.5mg by mouth twice daily HALOPERIDOL LACTATE 2 MG/ML ORAL CONC 008407 HALOPERIDOL LACTATE Inactive Advance Directives Directive Description [...] ... - Chemistry sodium, serum 131 mmol/L 662-743 9327/08/04 potassium, serum 4.7 mmol/L 3.5-5.2 chloride, serum [...] 142-424 Encounters Code Encounter Date Provider Facility CPT-43918 Level 4 Est. Patient 11:23:55 CDT Jerrod Blackwell MD [facility] CPT-58136 Level 3 Est. Patient 12:57:00 CDT Shagufta Fonseca ANUPAM [facility] CPT-81322 Level 3 Est. Patient 15:37:18 CDT Jerrod Blackwell MD [facility] CPT-09925 Level 3 Est. Patient 12:08:11 CDT Jerrod Blcakwell MD [facility] CPT-17666 Level 3 Est. Patient 16:03:05 PIPEFITTER Jerrod Blackwell MD [facility] CPT-75604 Level 4 Est. Patient 11:55:42 PIPEFITTER Jerrod Blackwell MD [facility] CPT-24213 Level 3 Est. Patient 10:29:34 PIPEFITTER Jerrod Blackwell MD [facility] CPT-72216 Level 3 New Patient 11:57:16 PIPEFITTER Jerrod Blackwell MD [facility]
--- OUTSIDE RECORDS SUMMARY | 2019-05-16 00:02 | XMS REPORT | Clinical Summary ---
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 Shagufta Fonseca APRN Other specified diseases of sebaceous glands Weight loss 783.21 Active Jerrod Blackwell MD Loss of weight Dysuria ICD-788.1 Inactive Jerrod Blackwell MD Urinary tract infection ICD-599.0 Inactive Jerrod Blackwell MD Upper respiratory infection ICD-465.9 Inactive Jerrod Blackwell MD Medication List Medication Instructions Start Date Stop Date Generic Name NDC Status Provider Patient Instruction AMBIEN 5 MG ORAL TABLET Take 1/2 tablet at HS ZOLPIDEM TARTRATE 82188280513 Active Mary Gallo APRN Active MIRTAZAPINE 15 MG ORAL TABLET 1 every evening for depression/nutrition MIRTAZAPINE 29830714941 Active Jerrod Blackwell MD Active HALOPERIDOL LACTATE 2 MG/ML ORAL CONCENTRATE 0.5mg by mouth twice daily HALOPERIDOL LACTATE 71444101187 No Longer Active Shagufta Sandovalbrian BO Active EXELON 4.6 MG/24HR TRANSDERMAL PATCH 24 HOUR Apply one daily RIVASTIGMINE 56801754805 No Longer Active Shaguftajames Fonseca APRN Active LORAZEPAM 0.5 MG ORAL TABLET 1 tablet daily as needed for severe aggitation/anxiety LORAZEPAM 83519761536 Active Jerrod Blackwell MD Active DONEPEZIL HCL 10 MG ORAL TABLET DISINTEGRATING 1 qHS DONEPEZIL HCL 05983813502 No Longer Active Nitza Deb Active MIRTAZAPINE 30 MG ORAL TABLET 1 tab at bedtime MIRTAZAPINE 76903675875 No Longer Active Nitza Deb Active RIVASTIGMINE TARTRATE 1.5 MG ORAL CAPSULE 1 cap every evening RIVASTIGMINE TARTRATE 34298473398 No Longer Active Nitza Deb Active MAGNESIUM CITRATE 1.745 GM/30ML ORAL SOLUTION 60ml po times one. MAGNESIUM CITRATE 66479504098 No Longer Active Jerrod Blackwell MD Active CIPRO 250 MG ORAL TABLET 1 tablet by mouth twice daily CIPROFLOXACIN HCL 68171174163 No Longer Active Jerrod Blackwell MD Active ANTI-DIARRHEAL 2 MG ORAL CAPSULE Take 1 capsule every 4 to 6 hours as needed for diarrhea LOPERAMIDE HCL 70147274993 No Longer Active Jerrod Blackwell MD Active ATIVAN 0.5 MG ORAL TABLET 1 twice a day as needed LORAZEPAM 19961294453 No Longer Active Jerrod Blackwell MD Active REMERON 15 MG ORAL TABLET 1 every night for depression MIRTAZAPINE 78529247950 No Longer Active Jerrod Blackwell MD Active NAMENDA 5 MG ORAL TABLET 1 twice a day for memory MEMANTINE HCL 60809175211 No Longer Active Jerrod Blackwell MD Active TYLENOL 325 MG ORAL TABLET 2 tablets every four to six hours as needed for pain ACETAMINOPHEN 16412628330 Active Jerrod Blackwell MD Active DONEPEZIL HCL 5 MG ORAL TABLET 1 every evening, Increase to 10mg every evening after 1 month DONEPEZIL HCL 81949399383 No Longer Active Jerrod Blackwell MD Active EQ MILK OF MAGNESIA SUSPENSION Take 30mL every 6hrs. as needed for constipation MAGNESIUM HYDROXIDE SUSP 52345581562 Active Jerrod Blackwell MD Active DONEPEZIL HCL 5 MG ORAL TABLET 1 every evening, Increase to 10mg every evening after 1 month DONEPEZIL HCL 5 MG ORAL TABLET 744104 DONEPEZIL HCL Inactive NAMENDA 5 MG ORAL TABLET 1 twice a day for memory NAMENDA 5 MG ORAL TABLET 184037 MEMANTINE HCL Inactive REMERON 15 MG ORAL TABLET 1 every night for depression REMERON 15 MG ORAL TABLET 737146 MIRTAZAPINE Inactive ATIVAN 0.5 MG ORAL TABLET 1 twice a day as needed ATIVAN 0.5 MG ORAL TABLET 078938 LORAZEPAM Inactive ANTI-DIARRHEAL 2 MG ORAL CAPSULE Take 1 capsule every 4 to 6 hours as needed for diarrhea ANTI-DIARRHEAL 2 MG ORAL CAPSULE 855731 LOPERAMIDE HCL Inactive CIPRO 250 MG ORAL TABLET 1 tablet by mouth twice daily CIPRO 250 MG ORAL TABLET 191434 CIPROFLOXACIN HCL Inactive MAGNESIUM CITRATE 1.745 GM/30ML ORAL SOLUTION 60ml po times one. MAGNESIUM CITRATE 1.745 GM/30ML ORAL SOLUTION 3991868 MAGNESIUM CITRATE Inactive RIVASTIGMINE TARTRATE 1.5 MG ORAL CAPSULE 1 cap every evening RIVASTIGMINE TARTRATE 1.5 MG ORAL CAPSULE 208845 RIVASTIGMINE TARTRATE Inactive MIRTAZAPINE 30 MG ORAL TABLET 1 tab at bedtime MIRTAZAPINE 30 MG ORAL TABLET 835814 MIRTAZAPINE Inactive DONEPEZIL HCL 10 MG ORAL TABLET DISINTEGRATING 1 qHS DONEPEZIL HCL 10 MG ORAL TABLET DISINTEGRATING 747335 DONEPEZIL HCL Inactive EXELON 4.6 MG/24HR TRANSDERMAL PATCH 24 HOUR Apply one daily EXELON 4.6 MG/24HR TRANSDERMAL PATCH 24 HOUR 690118 RIVASTIGMINE Inactive HALOPERIDOL LACTATE 2 MG/ML ORAL CONCENTRATE 0.5mg by mouth twice daily HALOPERIDOL LACTATE 2 MG/ML ORAL CONCENTRATE 442620 HALOPERIDOL LACTATE Inactive Advance Directives Directive Description Start Date ORDER APPOINTING TEMPORARY GUARDIAN AND CONSERVATOR LETTER OF GUARDIANSHIP AND CONSERVATORSHIP Encounters Code Encounter Date Provider Facility CPT-49066 Level 4 Est. Patient 11:23:55 CDT Jerrod Blackwell MD [facility] CPT-15173 Level 3 Est. Patient 12:57:00 CDT Shagufta Fonseca APRN [facility] CPT-90785 Level 3 Est. Patient 15:37:18 CDT Jerrod Blackwell MD [facility] CPT-42162 Level 3 Est. Patient 12:08:11 CDT Jerrod Blackwell MD [facility] CPT-89194 Level 3 Est. Patient 16:03:05 DRY GOODS INSPECTOR Jerrod Blackwell MD [facility] CPT-36734 Level 4 Est. Patient 11:55:42 DRY GOODS INSPECTOR Jerrod Blackwell MD [facility] CPT-03406 Level 3 Est. Patient 10:29:34 DRY GOODS INSPECTOR Jerrod Blackwell MD [facility] CPT-34628 Level 3 New Patient 11:57:16 DRY GOODS INSPECTOR Jerrod Blackwell MD [facility]
--- OUTSIDE RECORDS SUMMARY | 2019-05-16 00:02 | XMS REPORT | Clinical Summary ---
[...] 10 MG TBDP 1 qHS DONEPEZIL HCL 99041252152 No Longer Active Nitza Deb Active MIRTAZAPINE 30 MG TABS 1 tab at bedtime MIRTAZAPINE 11632849713 No Longer Active Nitza Deb Active RIVASTIGMINE TARTRATE 1.5 MG CAPS 1 cap every evening RIVASTIGMINE TARTRATE 50452142615 No Longer Active Nitza Deb Active MAGNESIUM CITRATE 1.745 GM/30ML SOLN 60ml po times one. MAGNESIUM CITRATE 95354493665 No Longer Active Jerrod Blackwell MD Active CIPRO 250 MG TAB 1 tablet by mouth twice daily CIPROFLOXACIN HCL 26344199966 No Longer Active Jerrod Blackwell MD Active LORAZEPAM 0.5 MG TABS 1 tab twice daily as needed LORAZEPAM 61193501176 Active Jerrod Blackwell MD Active ANTI-DIARRHEAL 2 MG CAPS Take 1 capsule every 4 to 6 hours as needed for diarrhea LOPERAMIDE HCL 28723474169 No Longer Active Jerrod Blackwell MD Active ATIVAN 0.5 MG TAB 1 twice a day as needed LORAZEPAM 75743759269 No Longer Active Jerrod Blackwell MD Active REMERON 15 MG TABS 1 every night for depression MIRTAZAPINE 97186422692 No Longer Active Jerrod Blackwell MD Active NAMENDA 5 MG TABS 1 twice a day for memory MEMANTINE HCL 22320679388 No Longer Active Jerrod Blackwell MD Active TYLENOL 325 MG TAB 2 tablets every four to six hours as needed for pain ACETAMINOPHEN 81944458934 Active Jerrod Blackwell MD Active DONEPEZIL HCL 5 MG TABS 1 every evening, Increase to 10mg every evening after 1 month DONEPEZIL HCL 83325954684 No Longer Active Jerrod Blackwell MD Active EQ MILK OF MAGNESIA SUSP Take 30mL every 6hrs. as needed for constipation MAGNESIUM HYDROXIDE SUSP 23519170320 Active Jerrod Blackwell MD Active DONEPEZIL HCL 5 MG TABS 1 every evening, Increase to 10mg every evening after 1 month DONEPEZIL HCL 5 MG TABS 924317 DONEPEZIL HCL Inactive NAMENDA 5 MG TABS 1 twice a day for memory NAMENDA 5 MG TABS MEMANTINE HCL Inactive REMERON 15 MG TABS 1 every night for depression REMERON 15 MG TABS 090840 MIRTAZAPINE Inactive ATIVAN 0.5 MG TAB 1 twice a day as needed ATIVAN 0.5 MG TAB 546110 LORAZEPAM Inactive ANTI-DIARRHEAL 2 MG CAPS Take 1 capsule every 4 to 6 hours as needed for diarrhea ANTI-DIARRHEAL 2 MG CAPS 914626 LOPERAMIDE HCL Inactive CIPRO 250 MG TAB 1 tablet by mouth twice daily CIPRO 250 MG TAB 424441 CIPROFLOXACIN HCL Inactive MAGNESIUM CITRATE 1.745 GM/30ML SOLN 60ml po times one. MAGNESIUM CITRATE 1.745 GM/30ML SOLN 4931222 MAGNESIUM CITRATE Inactive RIVASTIGMINE TARTRATE 1.5 MG CAPS 1 cap every evening RIVASTIGMINE TARTRATE 1.5 MG CAPS 158759 RIVASTIGMINE TARTRATE Inactive MIRTAZAPINE 30 MG TABS 1 tab at bedtime MIRTAZAPINE 30 MG TABS 736282 MIRTAZAPINE Inactive DONEPEZIL HCL 10 MG TBDP 1 qHS DONEPEZIL HCL 10 MG TBDP 947330 DONEPEZIL HCL Inactive Advance Directives Directive Description [...] Measured Encounters Code Encounter Date Provider Facility CPT-54324 Level 3 Est. Patient 15:37:18 CDT Jerrod Blackwell MD [facility] CPT-49777 Level 3 Est. Patient 12:08:11 CDT Jerrod Blackwell MD [facility] CPT-05830 Level 3 Est. Patient 16:03:05 COREMAKER MACHINE Jerrod Blackwell MD [facility] CPT-92346 Level 4 Est. Patient 11:55:42 COREMAKER MACHINE Jerrod Blackwell MD [facility] CPT-38467 Level 3 Est. Patient 10:29:34 COREMAKER MACHINE Jerrod Blackwell MD [facility] CPT-33220 Level 3 New Patient 11:57:16 COREMAKER MACHINE Jerrod Blackwell MD [facility]
--- OUTSIDE RECORDS SUMMARY | 2019-05-16 00:02 | XMS REPORT | Clinical Summary ---
Author Author Admin, GI Organization [facility] Address Unknown Phone Unavailable Allergies, [...] Instructions Start Date Stop Date Generic Name ND Status Provider Patient Instruction LORAZEPAM 0.5 MG TABS 1 tablet daily as needed for severe aggitation/anxiety LORAZEPAM 73128285687 Active Jerrod Blackwell MD Active DONEPEZIL HCL 10 MG TBDP 1 qHS DONEPEZIL HCL 58547547703 No Longer Active Nitza Deb Active MIRTAZAPINE 30 MG TABS 1 tab at bedtime MIRTAZAPINE 48606625919 No Longer Active Nitza Deb Active RIVASTIGMINE TARTRATE 1.5 MG CAPS 1 cap every evening RIVASTIGMINE TARTRATE 82375329786 No Longer Active Nitza Deb Active MAGNESIUM CITRATE 1.745 GM/30ML SOLN 60ml po times one. MAGNESIUM CITRATE 70023915727 No Longer Active Jerrod Blackwell MD Active CIPRO 250 MG TAB 1 tablet by mouth twice daily CIPROFLOXACIN HCL 44428507466 No Longer Active Jerrod Blackwell MD Active ANTI-DIARRHEAL 2 MG CAPS Take 1 capsule every 4 to 6 hours as needed for diarrhea LOPERAMIDE HCL 42762851427 No Longer Active Jerrod Blackwell MD Active ATIVAN 0.5 MG TAB 1 twice a day as needed LORAZEPAM 00558502793 No Longer Active Jerrod Blackwell MD Active REMERON 15 MG TABS 1 every night for depression MIRTAZAPINE 57297877691 No Longer Active Jerrod Blackwell MD Active NAMENDA 5 MG TABS 1 twice a day for memory MEMANTINE HCL 50110203543 No Longer Active Jerrod Blackwell MD Active TYLENOL 325 MG TAB 2 tablets every four to six hours as needed for pain ACETAMINOPHEN 09542437040 Active Jerrod Blackwell MD Active DONEPEZIL HCL 5 MG TABS 1 every evening, Increase to 10mg every evening after 1 month DONEPEZIL HCL 14401364426 No Longer Active Jerrod Blackwell MD Active EQ MILK OF MAGNESIA SUSP Take 30mL every 6hrs. as needed for constipation MAGNESIUM HYDROXIDE SUSP 89135874071 Active Jerrod Blackwell MD Active DONEPEZIL HCL 5 MG TABS 1 every evening, Increase to 10mg every evening after 1 month DONEPEZIL HCL 5 MG TABS 762369 DONEPEZIL HCL Inactive NAMENDA 5 MG TABS 1 twice a day for memory NAMENDA 5 MG TABS MEMANTINE HCL Inactive REMERON 15 MG TABS 1 every night for depression REMERON 15 MG TABS 532581 MIRTAZAPINE Inactive ATIVAN 0.5 MG TAB 1 twice a day as needed ATIVAN 0.5 MG TAB 663857 LORAZEPAM Inactive ANTI-DIARRHEAL 2 MG CAPS Take 1 capsule every 4 to 6 hours as needed for diarrhea ANTI-DIARRHEAL 2 MG CAPS 353543 LOPERAMIDE HCL Inactive CIPRO 250 MG TAB 1 tablet by mouth twice daily CIPRO 250 MG TAB 789403 CIPROFLOXACIN HCL Inactive MAGNESIUM CITRATE 1.745 GM/30ML SOLN 60ml po times one. MAGNESIUM CITRATE 1.745 GM/30ML SOLN 4723615 MAGNESIUM CITRATE Inactive RIVASTIGMINE TARTRATE 1.5 MG CAPS 1 cap every evening RIVASTIGMINE TARTRATE 1.5 MG CAPS 806045 RIVASTIGMINE TARTRATE Inactive MIRTAZAPINE 30 MG TABS 1 tab at bedtime MIRTAZAPINE 30 MG TABS 847802 MIRTAZAPINE Inactive DONEPEZIL HCL 10 MG TBDP 1 qHS DONEPEZIL HCL 10 MG TBDP 383829 DONEPEZIL HCL Inactive Advance Directives Directive Description Start Date ORDER APPOINTING TEMPORARY GUARDIAN AND CONSERVATOR LETTER OF GUARDIANSHIP AND CONSERVATORSHIP Vital Signs Date Name Value Unit Range Description blood pressure, diastolic - 8462-4 74 mm[Hg] BP mcginins blood pressure, systolic - 8480-6 156 mm[Hg] BP sys pulse rate E&M - 8867-4 85 /min Heart rate temperature E&M 98.1 [degF] Body temperature weight E&M - 3141-9 102.1 [lb_av] Weight Measured Encounters Code Encounter Date Provider Facility CPT-69913 Level 3 Est. Patient 15:37:18 CDT Jerrod Blackwell MD [facility] CPT-28139 Level 3 Est. Patient 12:08:11 CDT Jerrod Blackwell MD [facility] CPT-66885 Level 3 Est. Patient 16:03:05 CAUSE ANALYST Jerrod Blackwell MD [facility] CPT-41691 Level 4 Est. Patient 11:55:42 CAUSE ANALYST Jerrod Blackwell MD [facility] CPT-88963 Level 3 Est. Patient 10:29:34 CAUSE ANALYST Jerrod Blackwell MD [facility] CPT-63936 Level 3 New Patient 11:57:16 CAUSE ANALYST Jerrod Blackwell MD [facility]
--- OUTSIDE RECORDS SUMMARY | 2019-05-16 00:03 | XMS REPORT | Clinical Summary ---
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 Shagufta Fonseca STREETSWEEPER OPERATOR Other specified diseases of sebaceous glands Weight [...] Take 1/2 tablet at HS ZOLPIDEM TARTRATE 02153467904 Active SLIME Lux Active MIRTAZAPINE 15 MG ORAL TABS 1 every evening for depression/nutrition MIRTAZAPINE 87045303941 Active Jerrod Blackwell MD Active HALOPERIDOL LACTATE 2 MG/ML ORAL CONC 0.5mg by mouth twice daily HALOPERIDOL LACTATE 17230600932 No Longer Active Shagufta Yokum STREETSWEEPER OPERATOR Active EXELON 4.6 MG/24HR TRANS PT24 Apply one daily RIVASTIGMINE 82570207023 No Longer Active Shaguftajames Woodum STREETSWEEPER OPERATOR Active LORAZEPAM 0.5 MG TABS 1 tablet daily as needed for severe aggitation/anxiety LORAZEPAM 38593980516 Active Jerrod Blackwell MD Active DONEPEZIL HCL 10 MG TBDP 1 qHS DONEPEZIL HCL 58530258891 No Longer Active Nitza Deb Active MIRTAZAPINE 30 MG TABS 1 tab at bedtime MIRTAZAPINE 89732048182 No Longer Active Nitza Deb Active RIVASTIGMINE TARTRATE 1.5 MG CAPS 1 cap every evening RIVASTIGMINE TARTRATE 10690298747 No Longer Active Nitza Deb Active MAGNESIUM CITRATE 1.745 GM/30ML SOLN 60ml po times one. MAGNESIUM CITRATE 38144748387 No Longer Active Jrerod Blackwell MD Active CIPRO 250 MG TAB 1 tablet by mouth twice daily CIPROFLOXACIN HCL 48319153164 No Longer Active Jerrod Blackwell MD Active ANTI-DIARRHEAL 2 MG CAPS Take 1 capsule every 4 to 6 hours as needed for diarrhea LOPERAMIDE HCL 94059461134 No Longer Active Jerrod Blackwell MD Active ATIVAN 0.5 MG TAB 1 twice a day as needed LORAZEPAM 96153729114 No Longer Active Jerrod Blackwell MD Active REMERON 15 MG TABS 1 every night for depression MIRTAZAPINE 12017324814 No Longer Active Jerrod Blackwell MD Active NAMENDA 5 MG TABS 1 twice a day for memory MEMANTINE HCL 04075725509 No Longer Active Jerrod Blackwell MD Active TYLENOL 325 MG TAB 2 tablets every four to six hours as needed for pain ACETAMINOPHEN 37218593157 Active Jerrod Blackwell MD Active DONEPEZIL HCL 5 MG TABS 1 every evening, Increase to 10mg every evening after 1 month DONEPEZIL HCL 12259865650 No Longer Active Jerrod Blackwell MD Active EQ MILK OF MAGNESIA SUSP Take 30mL every 6hrs. as needed for constipation MAGNESIUM HYDROXIDE SUSP 50318638546 Active Jerrod Blackwell MD Active DONEPEZIL HCL 5 MG TABS 1 every evening, Increase to 10mg every evening after 1 month DONEPEZIL HCL 5 MG TABS 837912 DONEPEZIL HCL Inactive NAMENDA 5 MG TABS 1 twice a day for memory NAMENDA 5 MG TABS 171276 MEMANTINE HCL Inactive REMERON 15 MG TABS 1 every night for depression REMERON 15 MG TABS 925445 MIRTAZAPINE Inactive ATIVAN 0.5 MG TAB 1 twice a day as needed ATIVAN 0.5 MG TAB 668621 LORAZEPAM Inactive ANTI-DIARRHEAL 2 MG CAPS Take 1 capsule every 4 to 6 hours as needed for diarrhea ANTI-DIARRHEAL 2 MG CAPS 981036 LOPERAMIDE HCL Inactive CIPRO 250 MG TAB 1 tablet by mouth twice daily CIPRO 250 MG TAB 234146 CIPROFLOXACIN HCL Inactive MAGNESIUM CITRATE 1.745 GM/30ML SOLN 60ml po times one. MAGNESIUM CITRATE 1.745 GM/30ML SOLN 9873351 MAGNESIUM CITRATE Inactive RIVASTIGMINE TARTRATE 1.5 MG CAPS 1 cap every evening RIVASTIGMINE TARTRATE 1.5 MG CAPS 585582 RIVASTIGMINE TARTRATE Inactive MIRTAZAPINE 30 MG TABS 1 tab at bedtime MIRTAZAPINE 30 MG TABS 025723 MIRTAZAPINE Inactive DONEPEZIL HCL 10 MG TBDP 1 qHS DONEPEZIL HCL 10 MG TBDP 981815 DONEPEZIL HCL Inactive EXELON 4.6 MG/24HR TRANS PT24 Apply one daily EXELON 4.6 MG/24HR TRANS PT24 381166 RIVASTIGMINE Inactive HALOPERIDOL LACTATE 2 MG/ML ORAL CONC 0.5mg by mouth twice daily HALOPERIDOL LACTATE 2 MG/ML ORAL CONC 992538 HALOPERIDOL LACTATE Inactive Advance Directives Directive Description [...] ... - Chemistry sodium, serum 131 mmol/L 538-604 0978/08/04 potassium, serum 4.7 mmol/L 3.5-5.2 chloride, serum [...] 142-424 Encounters Code Encounter Date Provider Facility CPT-23569 Level 4 Est. Patient 11:23:55 CDT Jerrod Blackwell MD [facility] CPT-50137 Level 3 Est. Patient 12:57:00 CDT Shagufta Raymundo ANUPAM [facility] CPT-43720 Level 3 Est. Patient 15:37:18 CDT Jerrod Blackwell MD [facility] CPT-45501 Level 3 Est. Patient 12:08:11 CDT Jerrod Blackwell MD [facility] CPT-66328 Level 3 Est. Patient 16:03:05 MERCHANDISER RETAIL REPRESENTATIVE Jerrod Blackwell MD [facility] CPT-54889 Level 4 Est. Patient 11:55:42 MERCHANDISER RETAIL REPRESENTATIVE Jerrod Blackwell MD [facility] CPT-63959 Level 3 Est. Patient 10:29:34 MERCHANDISER RETAIL REPRESENTATIVE Jerrod Blackwell MD [facility] CPT-10530 Level 3 New Patient 11:57:16 MERCHANDISER RETAIL REPRESENTATIVE Jerrod Blackwell MD [facility]
--- OUTSIDE RECORDS SUMMARY | 2019-05-16 00:03 | XMS REPORT | Clinical Summary ---
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 Other specified diseases of sebaceous glands [...] Take 1/2 tablet at HS ZOLPIDEM TARTRATE 32202280188 Active Mary Gallo APRN Active MIRTAZAPINE 15 MG ORAL TABS 1 every evening for depression/nutrition MIRTAZAPINE 28246195645 Active Jrerod Blackwell MD Active HALOPERIDOL LACTATE 2 MG/ML ORAL CONC 0.5mg by mouth twice daily HALOPERIDOL LACTATE 78934509216 No Longer Active Shagufta Fonseca APRN Active EXELON 4.6 MG/24HR TRANS PT24 Apply one daily RIVASTIGMINE 35167406411 No Longer Active Shagufta Fonseca APRN Active LORAZEPAM 0.5 MG TABS 1 tablet daily as needed for severe aggitation/anxiety LORAZEPAM 04796521995 Active Jerrod Blackwell MD Active DONEPEZIL HCL 10 MG TBDP 1 qHS DONEPEZIL HCL 53495093319 No Longer Active Nitza Deb Active MIRTAZAPINE 30 MG TABS 1 tab at bedtime MIRTAZAPINE 16236965635 No Longer Active Nitza Deb Active RIVASTIGMINE TARTRATE 1.5 MG CAPS 1 cap every evening RIVASTIGMINE TARTRATE 68097186066 No Longer Active Nitza Deb Active MAGNESIUM CITRATE 1.745 GM/30ML SOLN 60ml po times one. MAGNESIUM CITRATE 76039406322 No Longer Active Jerrod Blackwell MD Active CIPRO 250 MG TAB 1 tablet by mouth twice daily CIPROFLOXACIN HCL 34512116884 No Longer Active Jerrod Blackwell MD Active ANTI-DIARRHEAL 2 MG CAPS Take 1 capsule every 4 to 6 hours as needed for diarrhea LOPERAMIDE HCL 75038326352 No Longer Active Jerrod Blackwell MD Active ATIVAN 0.5 MG TAB 1 twice a day as needed LORAZEPAM 14140952839 No Longer Active Jerrod Blackwell MD Active REMERON 15 MG TABS 1 every night for depression MIRTAZAPINE 74677736805 No Longer Active Jerrod Blackwell MD Active NAMENDA 5 MG TABS 1 twice a day for memory MEMANTINE HCL 71749266335 No Longer Active Jerrod Blackwell MD Active TYLENOL 325 MG TAB 2 tablets every four to six hours as needed for pain ACETAMINOPHEN 71036393757 Active Jerrod Blackwell MD Active DONEPEZIL HCL 5 MG TABS 1 every evening, Increase to 10mg every evening after 1 month DONEPEZIL HCL 63972767055 No Longer Active Jerrod Blackwell MD Active EQ MILK OF MAGNESIA SUSP Take 30mL every 6hrs. as needed for constipation MAGNESIUM HYDROXIDE SUSP 92480783968 Active Jerrod Blackwell MD Active DONEPEZIL HCL 5 MG TABS 1 every evening, Increase to 10mg every evening after 1 month DONEPEZIL HCL 5 MG TABS 807094 DONEPEZIL HCL Inactive NAMENDA 5 MG TABS 1 twice a day for memory NAMENDA 5 MG TABS 721254 MEMANTINE HCL Inactive REMERON 15 MG TABS 1 every night for depression REMERON 15 MG TABS 645533 MIRTAZAPINE Inactive ATIVAN 0.5 MG TAB 1 twice a day as needed ATIVAN 0.5 MG TAB 763131 LORAZEPAM Inactive ANTI-DIARRHEAL 2 MG CAPS Take 1 capsule every 4 to 6 hours as needed for diarrhea ANTI-DIARRHEAL 2 MG CAPS 367948 LOPERAMIDE HCL Inactive CIPRO 250 MG TAB 1 tablet by mouth twice daily CIPRO 250 MG TAB 087561 CIPROFLOXACIN HCL Inactive MAGNESIUM CITRATE 1.745 GM/30ML SOLN 60ml po times one. MAGNESIUM CITRATE 1.745 GM/30ML SOLN 3186536 MAGNESIUM CITRATE Inactive RIVASTIGMINE TARTRATE 1.5 MG CAPS 1 cap every evening RIVASTIGMINE TARTRATE 1.5 MG CAPS 603869 RIVASTIGMINE TARTRATE Inactive MIRTAZAPINE 30 MG TABS 1 tab at bedtime MIRTAZAPINE 30 MG TABS 635587 MIRTAZAPINE Inactive DONEPEZIL HCL 10 MG TBDP 1 qHS DONEPEZIL HCL 10 MG TBDP 156361 DONEPEZIL HCL Inactive EXELON 4.6 MG/24HR TRANS PT24 Apply one daily EXELON 4.6 MG/24HR TRANS PT24 277917 RIVASTIGMINE Inactive HALOPERIDOL LACTATE 2 MG/ML ORAL CONC 0.5mg by mouth twice daily HALOPERIDOL LACTATE 2 MG/ML ORAL CONC 895030 HALOPERIDOL LACTATE Inactive Advance Directives Directive Description [...] ... - Chemistry sodium, serum 131 mmol/L 942-887 7936/08/04 potassium, serum 4.7 mmol/L 3.5-5.2 chloride, serum [...] [phone] Encounters Code Encounter Date Provider Facility CPT-52992 Level 4 Est. Patient 11:23:55 CDT Jerrod Blackwell MD [facility] CPT-31185 Level 3 Est. Patient 12:57:00 CDT Shagufta Fonseca APRN [facility] CPT-28331 Level 3 Est. Patient 15:37:18 CDT Jerrod Blackwell MD [facility] CPT-46602 Level 3 Est. Patient 12:08:11 CDT Jerrod Blackwell MD [facility] CPT-33371 Level 3 Est. 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
--- OUTSIDE RECORDS SUMMARY | 2019-05-16 00:03 | XMS REPORT | Clinical Summary ---
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 Other specified diseases of sebaceous glands Weight [...] Take 1/2 tablet at HS ZOLPIDEM TARTRATE 52849941249 Active Mary Gallo APRN Active MIRTAZAPINE 15 MG ORAL TABS 1 every evening for depression/nutrition MIRTAZAPINE 06883990895 Active Jerrod Blackwell MD Active HALOPERIDOL LACTATE 2 MG/ML ORAL CONC 0.5mg by mouth twice daily HALOPERIDOL LACTATE 53842703968 No Longer Active Shagufta Fonseca APRN Active EXELON 4.6 MG/24HR TRANS PT24 Apply one daily RIVASTIGMINE 62186172044 No Longer Active Shagufta Fonseca APRN Active LORAZEPAM 0.5 MG TABS 1 tablet daily as needed for severe aggitation/anxiety LORAZEPAM 72558322906 Active Jerrod Blackwell MD Active DONEPEZIL HCL 10 MG TBDP 1 qHS DONEPEZIL HCL 41616254761 No Longer Active Nitza Deb Active MIRTAZAPINE 30 MG TABS 1 tab at bedtime MIRTAZAPINE 80379660085 No Longer Active Nitza Deb Active RIVASTIGMINE TARTRATE 1.5 MG CAPS 1 cap every evening RIVASTIGMINE TARTRATE 06446803496 No Longer Active Nitza Deb Active MAGNESIUM CITRATE 1.745 GM/30ML SOLN 60ml po times one. MAGNESIUM CITRATE 65771492208 No Longer Active Jerrod Blackwell MD Active CIPRO 250 MG TAB 1 tablet by mouth twice daily CIPROFLOXACIN HCL 27843671517 No Longer Active Jerrod Blackwell MD Active ANTI-DIARRHEAL 2 MG CAPS Take 1 capsule every 4 to 6 hours as needed for diarrhea LOPERAMIDE HCL 33888216023 No Longer Active Jerrod Blackwell MD Active ATIVAN 0.5 MG TAB 1 twice a day as needed LORAZEPAM 54820399938 No Longer Active Jerrod Blackwell MD Active REMERON 15 MG TABS 1 every night for depression MIRTAZAPINE 59470211808 No Longer Active Jerrod Blackwell MD Active NAMENDA 5 MG TABS 1 twice a day for memory MEMANTINE HCL 61986627777 No Longer Active Jerrod Blackwell MD Active TYLENOL 325 MG TAB 2 tablets every four to six hours as needed for pain ACETAMINOPHEN 95168252170 Active Jerrod Blackwell MD Active DONEPEZIL HCL 5 MG TABS 1 every evening, Increase to 10mg every evening after 1 month DONEPEZIL HCL 60089714376 No Longer Active Jerrod Blackwell MD Active EQ MILK OF MAGNESIA SUSP Take 30mL every 6hrs. as needed for constipation MAGNESIUM HYDROXIDE SUSP 78961966961 Active Jerrod Blackwell MD Active DONEPEZIL HCL 5 MG TABS 1 every evening, Increase to 10mg every evening after 1 month DONEPEZIL HCL 5 MG TABS 812317 DONEPEZIL HCL Inactive NAMENDA 5 MG TABS 1 twice a day for memory NAMENDA 5 MG TABS 188003 MEMANTINE HCL Inactive REMERON 15 MG TABS 1 every night for depression REMERON 15 MG TABS 499297 MIRTAZAPINE Inactive ATIVAN 0.5 MG TAB 1 twice a day as needed ATIVAN 0.5 MG TAB 046096 LORAZEPAM Inactive ANTI-DIARRHEAL 2 MG CAPS Take 1 capsule every 4 to 6 hours as needed for diarrhea ANTI-DIARRHEAL 2 MG CAPS 750654 LOPERAMIDE HCL Inactive CIPRO 250 MG TAB 1 tablet by mouth twice daily CIPRO 250 MG TAB 085398 CIPROFLOXACIN HCL Inactive MAGNESIUM CITRATE 1.745 GM/30ML SOLN 60ml po times one. MAGNESIUM CITRATE 1.745 GM/30ML SOLN 9833300 MAGNESIUM CITRATE Inactive RIVASTIGMINE TARTRATE 1.5 MG CAPS 1 cap every evening RIVASTIGMINE TARTRATE 1.5 MG CAPS 445156 RIVASTIGMINE TARTRATE Inactive MIRTAZAPINE 30 MG TABS 1 tab at bedtime MIRTAZAPINE 30 MG TABS 385255 MIRTAZAPINE Inactive DONEPEZIL HCL 10 MG TBDP 1 qHS DONEPEZIL HCL 10 MG TBDP 904503 DONEPEZIL HCL Inactive EXELON 4.6 MG/24HR TRANS PT24 Apply one daily EXELON 4.6 MG/24HR TRANS PT24 389125 RIVASTIGMINE Inactive HALOPERIDOL LACTATE 2 MG/ML ORAL CONC 0.5mg by mouth twice daily HALOPERIDOL LACTATE 2 MG/ML ORAL CONC 987650 HALOPERIDOL LACTATE Inactive Advance Directives Directive Description Start Date ORDER APPOINTING TEMPORARY GUARDIAN AND CONSERVATOR LETTER OF GUARDIANSHIP AND CONSERVATORSHIP Encounters Code Encounter Date Provider Facility CPT-04829 Level 4 Est. Patient 11:23:55 CDT Jerrod Blackwell MD [facility] CPT-16321 Level 3 Est. Patient 12:57:00 CDT Shagufta Fonseca APRN [facility] CPT-55781 Level 3 Est. Patient 15:37:18 CDT Jerrod Blackwell MD [facility] CPT-57841 Level 3 Est. Patient 12:08:11 CDT Jerrod Blackwell MD [facility] CPT-57632 Level 3 Est. Patient 16:03:05 SIDER Jerrod Blackwell MD [facility] CPT-94611 Level 4 Est. Patient 11:55:42 SIDER Jerrod Blackwell MD [facility] CPT-18243 Level 3 Est. Patient 10:29:34 SIDER Jerrod Blackwell MD [facility] CPT-30762 Level 3 New Patient 11:57:16 SIDER Jerrod Blackwell MD [facility]
--- OUTSIDE RECORDS SUMMARY | 2019-05-16 00:03 | XMS REPORT | Clinical Summary ---
Author Author Admin, GI Organization 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 Other specified diseases of sebaceous glands Weight [...] Take 1/2 tablet at HS ZOLPIDEM TARTRATE 06391581840 Active Mary Gallo APRN Active MIRTAZAPINE 15 MG ORAL TABS 1 every evening for depression/nutrition MIRTAZAPINE 35886525062 Active Jerrod Blackwell MD Active HALOPERIDOL LACTATE 2 MG/ML ORAL CONC 0.5mg by mouth twice daily HALOPERIDOL LACTATE 64616774517 No Longer Active Shagufta Fonseca APRN Active EXELON 4.6 MG/24HR TRANS PT24 Apply one daily RIVASTIGMINE 61325964302 No Longer Active Shagufta Fonseca APRN Active LORAZEPAM 0.5 MG TABS 1 tablet daily as needed for severe aggitation/anxiety LORAZEPAM 71630923532 Active Jerrod Blackwell MD Active DONEPEZIL HCL 10 MG TBDP 1 qHS DONEPEZIL HCL 53462199427 No Longer Active Nitza Deb Active MIRTAZAPINE 30 MG TABS 1 tab at bedtime MIRTAZAPINE 87852804883 No Longer Active Nitza Deb Active RIVASTIGMINE TARTRATE 1.5 MG CAPS 1 cap every evening RIVASTIGMINE TARTRATE 63028966968 No Longer Active Nitza Deb Active MAGNESIUM CITRATE 1.745 GM/30ML SOLN 60ml po times one. MAGNESIUM CITRATE 02809744099 No Longer Active Jerrod Blackwell MD Active CIPRO 250 MG TAB 1 tablet by mouth twice daily CIPROFLOXACIN HCL 39777535470 No Longer Active Jerrod Blackwell MD Active ANTI-DIARRHEAL 2 MG CAPS Take 1 capsule every 4 to 6 hours as needed for diarrhea LOPERAMIDE HCL 37576691976 No Longer Active Jerrod Blackwell MD Active ATIVAN 0.5 MG TAB 1 twice a day as needed LORAZEPAM 69035322815 No Longer Active Jerrod Blackwell MD Active REMERON 15 MG TABS 1 every night for depression MIRTAZAPINE 15250336409 No Longer Active Jerrod Blackwell MD Active NAMENDA 5 MG TABS 1 twice a day for memory MEMANTINE HCL 34276898224 No Longer Active Jerrod Blackwell MD Active TYLENOL 325 MG TAB 2 tablets every four to six hours as needed for pain ACETAMINOPHEN 09278719657 Active Jerrod Blakcwell MD Active DONEPEZIL HCL 5 MG TABS 1 every evening, Increase to 10mg every evening after 1 month DONEPEZIL HCL 41908598404 No Longer Active Jerrod Blackwell MD Active EQ MILK OF MAGNESIA SUSP Take 30mL every 6hrs. as needed for constipation MAGNESIUM HYDROXIDE SUSP 92880841017 Active Jerrod Blackwell MD Active DONEPEZIL HCL 5 MG TABS 1 every evening, Increase to 10mg every evening after 1 month DONEPEZIL HCL 5 MG TABS 800961 DONEPEZIL HCL Inactive NAMENDA 5 MG TABS 1 twice a day for memory NAMENDA 5 MG TABS 887531 MEMANTINE HCL Inactive REMERON 15 MG TABS 1 every night for depression REMERON 15 MG TABS 701718 MIRTAZAPINE Inactive ATIVAN 0.5 MG TAB 1 twice a day as needed ATIVAN 0.5 MG TAB 500589 LORAZEPAM Inactive ANTI-DIARRHEAL 2 MG CAPS Take 1 capsule every 4 to 6 hours as needed for diarrhea ANTI-DIARRHEAL 2 MG CAPS 128160 LOPERAMIDE HCL Inactive CIPRO 250 MG TAB 1 tablet by mouth twice daily CIPRO 250 MG TAB 677618 CIPROFLOXACIN HCL Inactive MAGNESIUM CITRATE 1.745 GM/30ML SOLN 60ml po times one. MAGNESIUM CITRATE 1.745 GM/30ML SOLN 6670294 MAGNESIUM CITRATE Inactive RIVASTIGMINE TARTRATE 1.5 MG CAPS 1 cap every evening RIVASTIGMINE TARTRATE 1.5 MG CAPS 344318 RIVASTIGMINE TARTRATE Inactive MIRTAZAPINE 30 MG TABS 1 tab at bedtime MIRTAZAPINE 30 MG TABS 892652 MIRTAZAPINE Inactive DONEPEZIL HCL 10 MG TBDP 1 qHS DONEPEZIL HCL 10 MG TBDP 769850 DONEPEZIL HCL Inactive EXELON 4.6 MG/24HR TRANS PT24 Apply one daily EXELON 4.6 MG/24HR TRANS PT24 793576 RIVASTIGMINE Inactive HALOPERIDOL LACTATE 2 MG/ML ORAL CONC 0.5mg by mouth twice daily HALOPERIDOL LACTATE 2 MG/ML ORAL CONC 773304 HALOPERIDOL LACTATE Inactive Advance Directives Directive Description Start Date ORDER APPOINTING TEMPORARY GUARDIAN AND CONSERVATOR LETTER OF GUARDIANSHIP AND CONSERVATORSHIP Encounters Code Encounter Date Provider Facility CPT-36115 Level 4 Est. Patient 11:23:55 CDT Jerrod Blackwell MD [facility] CPT-12084 Level 3 Est. Patient 12:57:00 CDT Shagufta Fonseca APRN [facility] CPT-52448 Level 3 Est. Patient 15:37:18 CDT Jerrod Blackwell MD [facility] CPT-15217 Level 3 Est. Patient 12:08:11 CDT Jerrod Blackwell MD [facility] CPT-22386 Level 3 Est. Patient 16:03:05 UNIT SECY Jerrod Blackwell MD [facility] CPT-97877 Level 4 Est. Patient 11:55:42 UNIT SECY Jerrod Blackwell MD [facility] CPT-29525 Level 3 Est. Patient 10:29:34 UNIT SECY Jerrod Blackwell MD [facility] CPT-17418 Level 3 New Patient 11:57:16 UNIT SECY Jerrod Blackwell MD [facility]
--- OUTSIDE RECORDS SUMMARY | 2019-05-16 00:04 | XMS REPORT | Clinical Summary ---
Author Author Admin, GI Organization [employer] Address Unknown Phone Unavailable Allergies, Adverse Reactions, [...] Take 1/2 tablet at HS ZOLPIDEM TARTRATE 76243229718 Active Mary Gallo APRN Active MIRTAZAPINE 15 MG ORAL TABLET 1 every evening for depression/nutrition MIRTAZAPINE 53165135251 Active Jerrod Blackwell MD Active HALOPERIDOL LACTATE 2 MG/ML ORAL CONCENTRATE 0.5mg by mouth twice daily HALOPERIDOL LACTATE 07671802411 No Longer Active Shagufta Sandovalbrian BO Active EXELON 4.6 MG/24HR TRANSDERMAL PATCH 24 HOUR Apply one daily RIVASTIGMINE 43070599965 No Longer Active Shaguftajames Fonseca APRN Active LORAZEPAM 0.5 MG ORAL TABLET 1 tablet daily as needed for severe aggitation/anxiety LORAZEPAM 21294414220 Active Jerrod Blackwell MD Active DONEPEZIL HCL 10 MG ORAL TABLET DISINTEGRATING 1 qHS DONEPEZIL HCL 99804690146 No Longer Active Nitza Deb Active MIRTAZAPINE 30 MG ORAL TABLET 1 tab at bedtime MIRTAZAPINE 33995246095 No Longer Active Nitza Deb Active RIVASTIGMINE TARTRATE 1.5 MG ORAL CAPSULE 1 cap every evening RIVASTIGMINE TARTRATE 81736091500 No Longer Active Nitza Deb Active MAGNESIUM CITRATE 1.745 GM/30ML ORAL SOLUTION 60ml po times one. MAGNESIUM CITRATE 69600023917 No Longer Active Jerrod Blackwell MD Active CIPRO 250 MG ORAL TABLET 1 tablet by mouth twice daily CIPROFLOXACIN HCL 40334932710 No Longer Active Jerrod Blackwell MD Active ANTI-DIARRHEAL 2 MG ORAL CAPSULE Take 1 capsule every 4 to 6 hours as needed for diarrhea LOPERAMIDE HCL 33563685401 No Longer Active Jerrod Blackwell MD Active ATIVAN 0.5 MG ORAL TABLET 1 twice a day as needed LORAZEPAM 72392009208 No Longer Active Jerrod Blackwell MD Active REMERON 15 MG ORAL TABLET 1 every night for depression MIRTAZAPINE 88054596582 No Longer Active Jerrod Blackwell MD Active NAMENDA 5 MG ORAL TABLET 1 twice a day for memory MEMANTINE HCL 74674975322 No Longer Active Jerrod Blackwell MD Active TYLENOL 325 MG ORAL TABLET 2 tablets every four to six hours as needed for pain ACETAMINOPHEN 00122863841 Active Jerrod Blackwell MD Active DONEPEZIL HCL 5 MG ORAL TABLET 1 every evening, Increase to 10mg every evening after 1 month DONEPEZIL HCL 45340988697 No Longer Active Jerrod Blackwell MD Active EQ MILK OF MAGNESIA SUSPENSION Take 30mL every 6hrs. as needed for constipation MAGNESIUM HYDROXIDE SUSP 29908589567 Active Jerrod Blackwell MD Active DONEPEZIL HCL 5 MG ORAL TABLET 1 every evening, Increase to 10mg every evening after 1 month DONEPEZIL HCL 5 MG ORAL TABLET 195253 DONEPEZIL HCL Inactive NAMENDA 5 MG ORAL TABLET 1 twice a day for memory NAMENDA 5 MG ORAL TABLET 573002 MEMANTINE HCL Inactive REMERON 15 MG ORAL TABLET 1 every night for depression REMERON 15 MG ORAL TABLET 011361 MIRTAZAPINE Inactive ATIVAN 0.5 MG ORAL TABLET 1 twice a day as needed ATIVAN 0.5 MG ORAL TABLET 959988 LORAZEPAM Inactive ANTI-DIARRHEAL 2 MG ORAL CAPSULE Take 1 capsule every 4 to 6 hours as needed for diarrhea ANTI-DIARRHEAL 2 MG ORAL CAPSULE 282891 LOPERAMIDE HCL Inactive CIPRO 250 MG ORAL TABLET 1 tablet by mouth twice daily CIPRO 250 MG ORAL TABLET 932743 CIPROFLOXACIN HCL Inactive MAGNESIUM CITRATE 1.745 GM/30ML ORAL SOLUTION 60ml po times one. MAGNESIUM CITRATE 1.745 GM/30ML ORAL SOLUTION 5194237 MAGNESIUM CITRATE Inactive RIVASTIGMINE TARTRATE 1.5 MG ORAL CAPSULE 1 cap every evening RIVASTIGMINE TARTRATE 1.5 MG ORAL CAPSULE 475083 RIVASTIGMINE TARTRATE Inactive MIRTAZAPINE 30 MG ORAL TABLET 1 tab at bedtime MIRTAZAPINE 30 MG ORAL TABLET 698768 MIRTAZAPINE Inactive DONEPEZIL HCL 10 MG ORAL TABLET DISINTEGRATING 1 qHS DONEPEZIL HCL 10 MG ORAL TABLET DISINTEGRATING 758382 DONEPEZIL HCL Inactive EXELON 4.6 MG/24HR TRANSDERMAL PATCH 24 HOUR Apply one daily EXELON 4.6 MG/24HR TRANSDERMAL PATCH 24 HOUR 278780 RIVASTIGMINE Inactive HALOPERIDOL LACTATE 2 MG/ML ORAL CONCENTRATE 0.5mg by mouth twice daily HALOPERIDOL LACTATE 2 MG/ML ORAL CONCENTRATE 006465 HALOPERIDOL LACTATE Inactive Advance Directives Directive Description Start Date ORDER APPOINTING TEMPORARY GUARDIAN AND CONSERVATOR LETTER OF GUARDIANSHIP AND CONSERVATORSHIP Encounters Code Encounter Date Provider Facility CPT-79029 Level 4 Est. Patient 11:23:55 CDT Jerrod Blackwell MD [facility] CPT-05797 Level 3 Est. Patient 12:57:00 CDT Shagufta Fonseca APRN [facility] CPT-10064 Level 3 Est. Patient 15:37:18 CDT Jerrod Blackwell MD [facility] CPT-74204 Level 3 Est. Patient 12:08:11 CDT Jerrod Blackwell MD [facility] CPT-39776 Level 3 Est. 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 Patient 11:55:42 VAN CDL DRIVER Jerrod Blackwell MD [facility] CPT-87196 Level 3 Est. Patient 10:29:34 VAN CDL DRIVER Jerrod Blackwell MD [facility] CPT-72603 Level 3 New Patient 11:57:16 VAN CDL DRIVER Jerrod Blackwell MD [facility]
--- OUTSIDE RECORDS SUMMARY | 2019-05-16 00:04 | XMS REPORT | Clinical Summary ---
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 Other specified diseases of sebaceous glands Weight [...] Take 1/2 tablet at HS ZOLPIDEM TARTRATE 73735876381 Active Mary Gallo APRN Active MIRTAZAPINE 15 MG ORAL TABS 1 every evening for depression/nutrition MIRTAZAPINE 21405876060 Active Jerrod Blackwell MD Active HALOPERIDOL LACTATE 2 MG/ML ORAL CONC 0.5mg by mouth twice daily HALOPERIDOL LACTATE 91666863898 No Longer Active Shagufta Fonseca APRN Active EXELON 4.6 MG/24HR TRANS PT24 Apply one daily RIVASTIGMINE 25368457172 No Longer Active Shagufta Fonseca APRN Active LORAZEPAM 0.5 MG TABS 1 tablet daily as needed for severe aggitation/anxiety LORAZEPAM 61626790672 Active Jerrod Blackwell MD Active DONEPEZIL HCL 10 MG TBDP 1 qHS DONEPEZIL HCL 30814766627 No Longer Active Nitza Deb Active MIRTAZAPINE 30 MG TABS 1 tab at bedtime MIRTAZAPINE 71190432238 No Longer Active Nitza Deb Active RIVASTIGMINE TARTRATE 1.5 MG CAPS 1 cap every evening RIVASTIGMINE TARTRATE 18618979619 No Longer Active Nitza Deb Active MAGNESIUM CITRATE 1.745 GM/30ML SOLN 60ml po times one. MAGNESIUM CITRATE 11653348026 No Longer Active Jerrod Blackwell MD Active CIPRO 250 MG TAB 1 tablet by mouth twice daily CIPROFLOXACIN HCL 55883952675 No Longer Active Jerrod Blackwell MD Active ANTI-DIARRHEAL 2 MG CAPS Take 1 capsule every 4 to 6 hours as needed for diarrhea LOPERAMIDE HCL 66840252181 No Longer Active Jerrod Blackwell MD Active ATIVAN 0.5 MG TAB 1 twice a day as needed LORAZEPAM 96601237614 No Longer Active Jerrod Blackwell MD Active REMERON 15 MG TABS 1 every night for depression MIRTAZAPINE 25580058111 No Longer Active Jerrod Blackwell MD Active NAMENDA 5 MG TABS 1 twice a day for memory MEMANTINE HCL 18611428912 No Longer Active Jerrod Blackwell MD Active TYLENOL 325 MG TAB 2 tablets every four to six hours as needed for pain ACETAMINOPHEN 95431840808 Active Jerrod Blackwell MD Active DONEPEZIL HCL 5 MG TABS 1 every evening, Increase to 10mg every evening after 1 month DONEPEZIL HCL 30179147488 No Longer Active Jerrod Blackwell MD Active EQ MILK OF MAGNESIA SUSP Take 30mL every 6hrs. as needed for constipation MAGNESIUM HYDROXIDE SUSP 77290509362 Active Jerrod Blackwell MD Active DONEPEZIL HCL 5 MG TABS 1 every evening, Increase to 10mg every evening after 1 month DONEPEZIL HCL 5 MG TABS 391615 DONEPEZIL HCL Inactive NAMENDA 5 MG TABS 1 twice a day for memory NAMENDA 5 MG TABS 157700 MEMANTINE HCL Inactive REMERON 15 MG TABS 1 every night for depression REMERON 15 MG TABS 165990 MIRTAZAPINE Inactive ATIVAN 0.5 MG TAB 1 twice a day as needed ATIVAN 0.5 MG TAB 232388 LORAZEPAM Inactive ANTI-DIARRHEAL 2 MG CAPS Take 1 capsule every 4 to 6 hours as needed for diarrhea ANTI-DIARRHEAL 2 MG CAPS 084134 LOPERAMIDE HCL Inactive CIPRO 250 MG TAB 1 tablet by mouth twice daily CIPRO 250 MG TAB 848766 CIPROFLOXACIN HCL Inactive MAGNESIUM CITRATE 1.745 GM/30ML SOLN 60ml po times one. MAGNESIUM CITRATE 1.745 GM/30ML SOLN 4539030 MAGNESIUM CITRATE Inactive RIVASTIGMINE TARTRATE 1.5 MG CAPS 1 cap every evening RIVASTIGMINE TARTRATE 1.5 MG CAPS 954910 RIVASTIGMINE TARTRATE Inactive MIRTAZAPINE 30 MG TABS 1 tab at bedtime MIRTAZAPINE 30 MG TABS 333914 MIRTAZAPINE Inactive DONEPEZIL HCL 10 MG TBDP 1 qHS DONEPEZIL HCL 10 MG TBDP 203196 DONEPEZIL HCL Inactive EXELON 4.6 MG/24HR TRANS PT24 Apply one daily EXELON 4.6 MG/24HR TRANS PT24 759118 RIVASTIGMINE Inactive HALOPERIDOL LACTATE 2 MG/ML ORAL CONC 0.5mg by mouth twice daily HALOPERIDOL LACTATE 2 MG/ML ORAL CONC 401861 HALOPERIDOL LACTATE Inactive Advance Directives Directive Description Start Date ORDER APPOINTING TEMPORARY GUARDIAN AND CONSERVATOR LETTER OF GUARDIANSHIP AND CONSERVATORSHIP Encounters Code Encounter Date Provider Facility CPT-28864 Level 4 Est. Patient 11:23:55 CDT Jerrod Blackwell MD [facility] CPT-39841 Level 3 Est. Patient 12:57:00 CDT Shagufta Fonseca APRN [facility] CPT-74533 Level 3 Est. Patient 15:37:18 CDT Jerrod Balckwell MD [facility] CPT-96576 Level 3 Est. Patient 12:08:11 CDT Jerrod Blackwell MD [facility] CPT-42238 Level 3 Est. 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 Patient 11:55:42 SUPERVISOR WET END Jerrod Blackwell MD [facility] CPT-93811 Level 3 Est. Patient 10:29:34 SUPERVISOR WET END Jerrod Blackwell MD [facility] CPT-27513 Level 3 New Patient 11:57:16 SUPERVISOR WET END Jerrod Blackwell MD [facility]
--- OUTSIDE RECORDS SUMMARY | 2019-05-16 00:04 | XMS REPORT | Clinical Summary ---
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 Shagufta Fonseca BATTERY CHECKER Other specified diseases of sebaceous glands Weight loss 783.21 Active Jerrod Blackwell MD Loss of weight Dysuria ICD-788.1 Inactive Jerrod Blackwell MD Urinary tract infection ICD-599.0 Inactive Jrerod Blackwell MD Upper respiratory infection ICD-465.9 Inactive Jerrod Blackwell MD Medication List Medication Instructions Start Date Stop Date Generic Name NDC Status Provider Patient Instruction AMBIEN 5 MG TAB Take 1/2 tablet at HS ZOLPIDEM TARTRATE 14774667588 Active Nitza Deb Active MIRTAZAPINE 15 MG ORAL TABS 1 every evening for depression/nutrition MIRTAZAPINE 32731105472 Active Jerrod Blackwell MD Active HALOPERIDOL LACTATE 2 MG/ML ORAL CONC 0.5mg by mouth twice daily HALOPERIDOL LACTATE 18304685391 No Longer Active Shagufta [employer] BATTERY CHECKER Active EXELON 4.6 MG/24HR TRANS PT24 Apply one daily RIVASTIGMINE 25291880877 No Longer Active Shagufta [employer] BATTERY CHECKER Active LORAZEPAM 0.5 MG TABS 1 tablet daily as needed for severe aggitation/anxiety LORAZEPAM 86140644203 Active Jerrod Blackwell MD Active DONEPEZIL HCL 10 MG TBDP 1 qHS DONEPEZIL HCL 30043943773 No Longer Active Nitza Deb Active MIRTAZAPINE 30 MG TABS 1 tab at bedtime MIRTAZAPINE 50786191172 No Longer Active Nitza Deb Active RIVASTIGMINE TARTRATE 1.5 MG CAPS 1 cap every evening RIVASTIGMINE TARTRATE 83953616737 No Longer Active Nitza Deb Active MAGNESIUM CITRATE 1.745 GM/30ML SOLN 60ml po times one. MAGNESIUM CITRATE 70115731558 No Longer Active Jerrod Blackwell MD Active CIPRO 250 MG TAB 1 tablet by mouth twice daily CIPROFLOXACIN HCL 43721818626 No Longer Active Jerrod Blackwell MD Active ANTI-DIARRHEAL 2 MG CAPS Take 1 capsule every 4 to 6 hours as needed for diarrhea LOPERAMIDE HCL 08593446846 No Longer Active Jerrod Blackwell MD Active ATIVAN 0.5 MG TAB 1 twice a day as needed LORAZEPAM 23915014830 No Longer Active Jerrod Blackwell MD Active REMERON 15 MG TABS 1 every night for depression MIRTAZAPINE 32373562551 No Longer Active Jerrod Blackwell MD Active NAMENDA 5 MG TABS 1 twice a day for memory MEMANTINE HCL 60175495217 No Longer Active Jerrod Blackwell MD Active TYLENOL 325 MG TAB 2 tablets every four to six hours as needed for pain ACETAMINOPHEN 15848313245 Active Jerrod Blackwell MD Active DONEPEZIL HCL 5 MG TABS 1 every evening, Increase to 10mg every evening after 1 month DONEPEZIL HCL 33011884937 No Longer Active Jerrod Blackwell MD Active EQ MILK OF MAGNESIA SUSP Take 30mL every 6hrs. as needed for constipation MAGNESIUM HYDROXIDE SUSP 57144395495 Active Jerrod Blackwell MD Active DONEPEZIL HCL 5 MG TABS 1 every evening, Increase to 10mg every evening after 1 month DONEPEZIL HCL 5 MG TABS 934084 DONEPEZIL HCL Inactive NAMENDA 5 MG TABS 1 twice a day for memory NAMENDA 5 MG TABS 319200 MEMANTINE HCL Inactive REMERON 15 MG TABS 1 every night for depression REMERON 15 MG TABS 829432 MIRTAZAPINE Inactive ATIVAN 0.5 MG TAB 1 twice a day as needed ATIVAN 0.5 MG TAB 492353 LORAZEPAM Inactive ANTI-DIARRHEAL 2 MG CAPS Take 1 capsule every 4 to 6 hours as needed for diarrhea ANTI-DIARRHEAL 2 MG CAPS 895886 LOPERAMIDE HCL Inactive CIPRO 250 MG TAB 1 tablet by mouth twice daily CIPRO 250 MG TAB 857603 CIPROFLOXACIN HCL Inactive MAGNESIUM CITRATE 1.745 GM/30ML SOLN 60ml po times one. MAGNESIUM CITRATE 1.745 GM/30ML SOLN 8433899 MAGNESIUM CITRATE Inactive RIVASTIGMINE TARTRATE 1.5 MG CAPS 1 cap every evening RIVASTIGMINE TARTRATE 1.5 MG CAPS 729931 RIVASTIGMINE TARTRATE Inactive MIRTAZAPINE 30 MG TABS 1 tab at bedtime MIRTAZAPINE 30 MG TABS 507956 MIRTAZAPINE Inactive DONEPEZIL HCL 10 MG TBDP 1 qHS DONEPEZIL HCL 10 MG TBDP 696957 DONEPEZIL HCL Inactive EXELON 4.6 MG/24HR TRANS PT24 Apply one daily EXELON 4.6 MG/24HR TRANS PT24 RIVASTIGMINE Inactive HALOPERIDOL LACTATE 2 MG/ML ORAL CONC 0.5mg by mouth twice daily HALOPERIDOL LACTATE 2 MG/ML ORAL CONC 849077 HALOPERIDOL LACTATE Inactive Advance Directives Directive Description [...] ... - Chemistry sodium, serum 131 mmol/L 309-918 5523/08/04 potassium, serum 4.7 mmol/L 3.5-5.2 chloride, serum [...] 142-424 Encounters Code Encounter Date Provider Facility CPT-12189 Level 4 Est. Patient 11:23:55 CDT Jerrod Blackwell MD [facility] CPT-10319 Level 3 Est. Patient 12:57:00 CDT Shagufta Fonseca APRN [facility] CPT-05676 Level 3 Est. Patient 15:37:18 CDT Jerrod Blackwell MD [facility] CPT-87695 Level 3 Est. Patient 12:08:11 CDT Jerrod Blackwell MD [facility] CPT-89502 Level 3 Est. 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 Patient 11:55:42 RETAIL BEAUTY SPECIALIST Jerrod Blackwell MD [facility] CPT-47549 Level 3 Est. Patient 10:29:34 RETAIL BEAUTY SPECIALIST Jerrod Blackwell MD [facility] CPT-61596 Level 3 New Patient 11:57:16 RETAIL BEAUTY SPECIALIST Jerrod Blackwell MD [facility]
--- OUTSIDE RECORDS SUMMARY | 2019-05-16 00:04 | XMS REPORT | Clinical Summary ---
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 Other specified diseases of sebaceous glands [...] Take 1/2 tablet at HS ZOLPIDEM TARTRATE 75640148294 Active Mary Gallo APRN Active MIRTAZAPINE 15 MG ORAL TABS 1 every evening for depression/nutrition MIRTAZAPINE 15871497904 Active Jerrod Blackwell MD Active HALOPERIDOL LACTATE 2 MG/ML ORAL CONC 0.5mg by mouth twice daily HALOPERIDOL LACTATE 77583896259 No Longer Active Shagufta Fonseca APRN Active EXELON 4.6 MG/24HR TRANS PT24 Apply one daily RIVASTIGMINE 80413440707 No Longer Active Shagufta Fonseca APRN Active LORAZEPAM 0.5 MG TABS 1 tablet daily as needed for severe aggitation/anxiety LORAZEPAM 73531681541 Active Jerrod Blackwell MD Active DONEPEZIL HCL 10 MG TBDP 1 qHS DONEPEZIL HCL 36050224752 No Longer Active Nitza Deb Active MIRTAZAPINE 30 MG TABS 1 tab at bedtime MIRTAZAPINE 91733131421 No Longer Active Nitza Deb Active RIVASTIGMINE TARTRATE 1.5 MG CAPS 1 cap every evening RIVASTIGMINE TARTRATE 45423633669 No Longer Active Nitza Deb Active MAGNESIUM CITRATE 1.745 GM/30ML SOLN 60ml po times one. MAGNESIUM CITRATE 82270654822 No Longer Active Jerrod Blackwell MD Active CIPRO 250 MG TAB 1 tablet by mouth twice daily CIPROFLOXACIN HCL 78348990500 No Longer Active Jerrod Blackwell MD Active ANTI-DIARRHEAL 2 MG CAPS Take 1 capsule every 4 to 6 hours as needed for diarrhea LOPERAMIDE HCL 53931562921 No Longer Active Jerrod Blackwell MD Active ATIVAN 0.5 MG TAB 1 twice a day as needed LORAZEPAM 84832001969 No Longer Active Jerrod Blackwell MD Active REMERON 15 MG TABS 1 every night for depression MIRTAZAPINE 53804117989 No Longer Active Jerrod Blackwell MD Active NAMENDA 5 MG TABS 1 twice a day for memory MEMANTINE HCL 89444282294 No Longer Active Jerrod Blackwell MD Active TYLENOL 325 MG TAB 2 tablets every four to six hours as needed for pain ACETAMINOPHEN 14831457549 Active Jerrod Blackwell MD Active DONEPEZIL HCL 5 MG TABS 1 every evening, Increase to 10mg every evening after 1 month DONEPEZIL HCL 80593754377 No Longer Active Jerrod Blackwell MD Active EQ MILK OF MAGNESIA SUSP Take 30mL every 6hrs. as needed for constipation MAGNESIUM HYDROXIDE SUSP 36601587781 Active Jerrod Blackwell MD Active DONEPEZIL HCL 5 MG TABS 1 every evening, Increase to 10mg every evening after 1 month DONEPEZIL HCL 5 MG TABS 098786 DONEPEZIL HCL Inactive NAMENDA 5 MG TABS 1 twice a day for memory NAMENDA 5 MG TABS 503031 MEMANTINE HCL Inactive REMERON 15 MG TABS 1 every night for depression REMERON 15 MG TABS 819514 MIRTAZAPINE Inactive ATIVAN 0.5 MG TAB 1 twice a day as needed ATIVAN 0.5 MG TAB 103396 LORAZEPAM Inactive ANTI-DIARRHEAL 2 MG CAPS Take 1 capsule every 4 to 6 hours as needed for diarrhea ANTI-DIARRHEAL 2 MG CAPS 146336 LOPERAMIDE HCL Inactive CIPRO 250 MG TAB 1 tablet by mouth twice daily CIPRO 250 MG TAB 951850 CIPROFLOXACIN HCL Inactive MAGNESIUM CITRATE 1.745 GM/30ML SOLN 60ml po times one. MAGNESIUM CITRATE 1.745 GM/30ML SOLN 5227445 MAGNESIUM CITRATE Inactive RIVASTIGMINE TARTRATE 1.5 MG CAPS 1 cap every evening RIVASTIGMINE TARTRATE 1.5 MG CAPS 991539 RIVASTIGMINE TARTRATE Inactive MIRTAZAPINE 30 MG TABS 1 tab at bedtime MIRTAZAPINE 30 MG TABS 936239 MIRTAZAPINE Inactive DONEPEZIL HCL 10 MG TBDP 1 qHS DONEPEZIL HCL 10 MG TBDP 643744 DONEPEZIL HCL Inactive EXELON 4.6 MG/24HR TRANS PT24 Apply one daily EXELON 4.6 MG/24HR TRANS PT24 161316 RIVASTIGMINE Inactive HALOPERIDOL LACTATE 2 MG/ML ORAL CONC 0.5mg by mouth twice daily HALOPERIDOL LACTATE 2 MG/ML ORAL CONC 555584 HALOPERIDOL LACTATE Inactive Advance Directives Directive Description Start Date ORDER APPOINTING TEMPORARY GUARDIAN AND CONSERVATOR LETTER OF GUARDIANSHIP AND CONSERVATORSHIP Encounters Code Encounter Date Provider Facility CPT-52105 Level 4 Est. Patient 11:23:55 CDT Jerrod Blackwell MD [facility] CPT-02414 Level 3 Est. Patient 12:57:00 CDT Shagufta Fonseca APRN [facility] CPT-09447 Level 3 Est. Patient 15:37:18 CDT Jerrod Blackwell MD [facility] CPT-75388 Level 3 Est. Patient 12:08:11 CDT Jerrod Blackwell MD [facility] CPT-56964 Level 3 Est. 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 Patient 11:55:42 CROP SUPERVISOR Jerrod Blackwell MD [facility] CPT-38967 Level 3 Est. Patient 10:29:34 CROP SUPERVISOR Jerrod Blackwell MD [facility] CPT-28390 Level 3 New Patient 11:57:16 CROP SUPERVISOR Jerrod Blackwell MD [facility]
--- OUTSIDE RECORDS SUMMARY | 2019-05-16 00:04 | XMS REPORT | Clinical Summary ---
[...] Acute upper respiratory infections of unspecified site Dysuria ICD-788.1 Inactive Jerrod Blackwell MD Urinary tract infection ICD-599.0 Inactive Jerrod Blackwell MD Upper respiratory infection ICD-465.9 Inactive Jerrod Blackwell MD Medication List Medication Instructions Start Date Stop Date Generic Name [facility] Status Provider Patient Instruction HALOPERIDOL LACTATE 2 MG/ML ORAL CONC 0.5mg by mouth twice daily HALOPERIDOL LACTATE 61138005507 Active Jerrod Blackwell MD Active EXELON 4.6 MG/24HR TRANS PT24 Apply one daily RIVASTIGMINE 59946809268 Active Jerrod Blackwell MD Active LORAZEPAM 0.5 MG TABS 1 tablet daily as needed for severe aggitation/anxiety LORAZEPAM 84587418359 Active Jerrod Blackwell MD Active DONEPEZIL HCL 10 MG TBDP 1 qHS DONEPEZIL HCL 86540389302 No Longer Active Nitza Bolañosson Active MIRTAZAPINE 30 MG TABS 1 tab at bedtime MIRTAZAPINE 41843299033 No Longer Active Nitzaqian Boyd Active RIVASTIGMINE TARTRATE 1.5 MG CAPS 1 cap every evening RIVASTIGMINE TARTRATE 45180613334 No Longer Active Nitza Deb Active MAGNESIUM CITRATE 1.745 GM/30ML SOLN 60ml po times one. MAGNESIUM CITRATE 62209093825 No Longer Active Jerrod Blackwell MD Active CIPRO 250 MG TAB 1 tablet by mouth twice daily CIPROFLOXACIN HCL 03647744656 No Longer Active Jerrod Blackwell MD Active ANTI-DIARRHEAL 2 MG CAPS Take 1 capsule every 4 to 6 hours as needed for diarrhea LOPERAMIDE HCL 97287347712 No Longer Active Jerrod Blackwell MD Active ATIVAN 0.5 MG TAB 1 twice a day as needed LORAZEPAM 00684967479 No Longer Active Jerrod Blackwell MD Active REMERON 15 MG TABS 1 every night for depression MIRTAZAPINE 81049092692 No Longer Active Jerrod Blackwell MD Active NAMENDA 5 MG TABS 1 twice a day for memory MEMANTINE HCL 25984176344 No Longer Active Jerrod Blackwell MD Active TYLENOL 325 MG TAB 2 tablets every four to six hours as needed for pain ACETAMINOPHEN 07315400703 Active Jerrod Blackwell MD Active DONEPEZIL HCL 5 MG TABS 1 every evening, Increase to 10mg every evening after 1 month DONEPEZIL HCL 74109070136 No Longer Active Jerrod Blackwell MD Active EQ MILK OF MAGNESIA SUSP Take 30mL every 6hrs. as needed for constipation MAGNESIUM HYDROXIDE SUSP 22951775384 Active Jerrod Blackwell MD Active DONEPEZIL HCL 5 MG TABS 1 every evening, Increase to 10mg every evening after 1 month DONEPEZIL HCL 5 MG TABS 645725 DONEPEZIL HCL Inactive NAMENDA 5 MG TABS 1 twice a day for memory NAMENDA 5 MG TABS MEMANTINE HCL Inactive REMERON 15 MG TABS 1 every night for depression REMERON 15 MG TABS 970388 MIRTAZAPINE Inactive ATIVAN 0.5 MG TAB 1 twice a day as needed ATIVAN 0.5 MG TAB 605002 LORAZEPAM Inactive ANTI-DIARRHEAL 2 MG CAPS Take 1 capsule every 4 to 6 hours as needed for diarrhea ANTI-DIARRHEAL 2 MG CAPS 236427 LOPERAMIDE HCL Inactive CIPRO 250 MG TAB 1 tablet by mouth twice daily CIPRO 250 MG TAB 118264 CIPROFLOXACIN HCL Inactive MAGNESIUM CITRATE 1.745 GM/30ML SOLN 60ml po times one. MAGNESIUM CITRATE 1.745 GM/30ML SOLN 0361096 MAGNESIUM CITRATE Inactive RIVASTIGMINE TARTRATE 1.5 MG CAPS 1 cap every evening RIVASTIGMINE TARTRATE 1.5 MG CAPS 025358 RIVASTIGMINE TARTRATE Inactive MIRTAZAPINE 30 MG TABS 1 tab at bedtime MIRTAZAPINE 30 MG TABS 843083 MIRTAZAPINE Inactive DONEPEZIL HCL 10 MG TBDP 1 qHS DONEPEZIL HCL 10 MG TBDP 173818 DONEPEZIL HCL Inactive Advance Directives Directive Description Start Date ORDER APPOINTING TEMPORARY GUARDIAN AND CONSERVATOR LETTER OF GUARDIANSHIP AND CONSERVATORSHIP Vital Signs Date Name Value Unit Range Description blood pressure, diastolic - 8462-4 76 mm[Hg] [...] Measured Encounters Code Encounter Date Provider Facility CPT-79432 Level 3 Est. Patient 15:37:18 CDT Jerrod Blackwell MD [facility] CPT-10479 Level 3 Est. Patient 12:08:11 CDT Jerrod Blackwell MD [facility] CPT-20857 Level 3 Est. Patient 16:03:05 [employer]VISOR [employer] Jerrod Blackwell MD [facility] CPT-66576 Level 4 Est. Patient 11:55:42 [employer] Jerrod Blackwell MD [facility] CPT-36139 Level 3 Est. Patient 10:29:34 [employer]OR [employer] Jerrod Blackwell MD [facility] CPT-12681 Level 3 New Patient 11:57:16 [employer] Jerrod Blackwell MD [facility]
--- OUTSIDE RECORDS SUMMARY | 2019-05-16 00:05 | XMS REPORT | Clinical Summary ---
Author Author Admin, GI Organization [facility] Address Unknown Phone Allergies, Adverse Reactions, Alerts Allergy Name Reaction [...] not elsewhere classified Dysuria 788.1 Active Jalyn Becerra Dysuria Constipation, mild 564.00 Active Jerrod Blackwell MD Constipation, unspecified Urinary tract infection 599.0 Active Jerrod Blackwell MD Urinary tract infection, site not specified Medication List Medication Instructions Start Date Stop Date Generic Name ND Status Provider Patient Instruction RIVASTIGMINE TARTRATE 1.5 MG CAPS 1 cap every evening RIVASTIGMINE TARTRATE 91850676389 Active Jerrod Blackwell MD Active MAGNESIUM CITRATE 1.745 GM/30ML SOLN 60ml po times one. MAGNESIUM CITRATE 29856265719 No Longer Active Jerrod Blackwell MD Active CIPRO 250 MG TAB 1 tablet by mouth twice daily CIPROFLOXACIN HCL 41514239305 No Longer Active Jerrod Blackwell MD Active LORAZEPAM 0.5 MG TABS 1 tab twice daily as needed LORAZEPAM 74206105586 Active Jerrod Blackwell MD Active MIRTAZAPINE 30 MG TABS 1 tab at bedtime MIRTAZAPINE 32326930785 Active Jerrod Blackwell MD Active ANTI-DIARRHEAL 2 MG CAPS Take 1 capsule every 4 to 6 hours as needed for diarrhea LOPERAMIDE HCL 81897616547 No Longer Active Jerrod Blackwell MD Active ATIVAN 0.5 MG TAB 1 twice a day as needed LORAZEPAM 14112596726 No Longer Active Jerrod Blackwell MD Active REMERON 15 MG TABS 1 every night for depression MIRTAZAPINE 46002508083 No Longer Active Jerrod Blackwell MD Active NAMENDA 5 MG TABS 1 twice a day for memory MEMANTINE HCL 88973602493 No Longer Active Jerrod Blackwell MD Active TYLENOL 325 MG TAB 2 tablets every four to six hours as needed for pain ACETAMINOPHEN 84885843122 Active Jerrod Blackwell MD Active DONEPEZIL HCL 5 MG TABS 1 every evening, Increase to 10mg every evening after 1 month DONEPEZIL HCL 12315844594 No Longer Active Jerrod Blackwell MD Active DONEPEZIL HCL 10 MG TBDP 1 qHS DONEPEZIL HCL 02164963153 Active Jerrod Blackwell MD Active EQ MILK OF MAGNESIA SUSP Take 30mL every 6hrs. as needed for constipation MAGNESIUM HYDROXIDE SUSP 41247165783 Active Jerrod Blackwell MD Active ATIVAN 0.5 MG TAB 1 twice a day as needed ATIVAN 0.5 MG TAB 874925 LORAZEPAM Inactive CIPRO 250 MG TAB 1 tablet by mouth twice daily CIPRO 250 MG TAB 517063 CIPROFLOXACIN HCL Inactive MAGNESIUM CITRATE 1.745 GM/30ML SOLN 60ml po times one. MAGNESIUM CITRATE 1.745 GM/30ML SOLN 2109270 MAGNESIUM CITRATE Inactive REMERON 15 MG TABS 1 every night for depression REMERON 15 MG TABS 153922 MIRTAZAPINE Inactive DONEPEZIL HCL 5 MG TABS 1 every evening, Increase to 10mg every evening after 1 month DONEPEZIL HCL 5 MG TABS 160322 DONEPEZIL HCL Inactive NAMENDA 5 MG TABS 1 twice a day for memory NAMENDA 5 MG TABS MEMANTINE HCL Inactive ANTI-DIARRHEAL 2 MG CAPS Take 1 capsule every 4 to 6 hours as needed for diarrhea ANTI-DIARRHEAL 2 MG CAPS 918701 LOPERAMIDE HCL Inactive Advance Directives Directive Description Start Date ORDER APPOINTING TEMPORARY GUARDIAN AND CONSERVATOR LETTER OF GUARDIANSHIP AND CONSERVATORSHIP Vital Signs Date Name Value Unit Range Description blood pressure, diastolic 70 mm[Hg] BP mcginnis blood pressure, systolic 124 mm[Hg] BP sys height E&M 63 [in_us] Bdy height temperature E&M 96.6 [degF] Body temperature weight E&M 94.38 [lb_av] Weight Measured blood pressure, diastolic 72 mm[Hg] BP mcginnis blood pressure, systolic 126 mm[Hg] BP sys height E&M 63 [in_us] Bdy height pulse rate E&M 89 /min Heart rate temperature E&M 97.3 [degF] Body temperature weight E&M 90.13 [lb_av] Weight Measured blood pressure, diastolic 67 mm[Hg] BP mcginnis blood pressure, systolic 142 mm[Hg] BP sys height E&M 63 [in_us] Bdy height pulse rate E&M 85 /min Heart rate temperature E&M 99.6 [degF] Body temperature weight E&M 94.25 [lb_av] Weight Measured blood pressure, diastolic 77 mm[Hg] BP mcginnis blood pressure, systolic 135 mm[Hg] BP sys height E&M 63 [in_us] Bdy height pulse rate E&M 84 /min Heart rate temperature E&M 97.0 [degF] Body temperature weight E&M 84.50 [lb_av] Weight Measured blood pressure, diastolic 71 mm[Hg] BP mcginnis blood pressure, systolic 123 mm[Hg] BP sys height E&M 63 [in_us] Bdy height pulse rate E&M 92 /min Heart rate temperature E&M 99.1 [degF] Body temperature weight E&M 88 [lb_av] Weight Measured Diagnostic Results Date Name Value Unit Range Description Lab Report: CBC, Comp. Metabolic Panel, Thyroid Stimulating Hormone (L), ... - Chemistry sodium, serum 141 mmol/L 198-218 5136/11/20 potassium, serum 4.4 mmol/L 3.5-5.2 chloride, serum 104 mmol/L 98-107 carbon dioxide, venous blood 32.4 mmol/L 21.0-32.0 blood glucose 110 mg/dL 65-110 urea nitrogen, blood 24 mg/dL 7-18 creatinine, serum 0.90 mg/dL 0.60-1.30 alanine aminotransferase (SGPT), serum 18 U/L 12-78 aspartate aminotransferase (SGOT), serum 13 U/L 15-37 alkaline phosphatase, serum 115 U/L 50-136 calcium, serum 9.2 mg/dL 8.5-10.1 bilirubin, serum, total 0.70 mg/dL 0.00-1.00 TSH 2.84 m[iU]/mL 0.36-3.74 thyroxine, serum, free 1.11 ng/dL 0.76-1.46 Lab Report: CBC, Comp. Metabolic Panel, Thyroid Stimulating Hormone (L), ... - Hematology leukocyte count, blood 5.6 10^3/MM^3 10*3/mm3 4.6-10.2 erythrocyte (RBC) count 4.55 10^6/MM^3 10*6/mm3 4.04-5.48 hemoglobin, blood 13.0 g/dL 12.0-16.0 hematocrit, blood 39.3 % 36.0-46.0 mean corpuscular volume, RBC 86 fL 80-97 mean corpuscular hemoglobin, RBC 28.6 pg 27.0-31.2 mean corpuscular hemoglobin concentration, RBC 33.2 G/DL % 31.8-35.4 red blood cell distribution width 12.6 % 11.6-14.8 platelet count 334 10^3/MM^3 10*3/mm3 142-424 Lab Report: UADIP W/MICRO, AUTO - Chemistry RBC, urine, dipstick Negative Negative protein, total urine random Negative mg/dL Negative protein, total urine random Trace mg/dL Negative RBC, urine, dipstick Moderate Negative Lab Report: UADIP W/MICRO, AUTO - Urinalysis urobilinogen, urine, semiquantitative (dipstick) Normal Normal leukocyte esterase, urine, by dipstick Trace Negative urate crystals, amorphous, urine, semiquantitative Large None seen glucose, urine, semiquantitative Negative Negative ketones, urine, by test strip Negative Negative bilirubin, urine Negative Negative glucose, urine, semiquantitative Negative Negative ketones, urine, by test strip 2+ Negative bilirubin, urine Negative Negative urobilinogen, urine, semiquantitative (dipstick) 0.2 Normal leukocyte esterase, urine, by dipstick Trace Negative nitrite, urine, semiquantitative Negative Negative urate crystals, amorphous, urine, semiquantitative Moderate None seen urine color Yellow Colorless;Lightyellow;Straw;Yellow appearance, urine Cloudy Clear specific gravity, urine 1.030 1.000-1.030 pH, urine, semiquantitative 5.0 5.0-8.5 urine color Yellow Colorless;Lightyellow;Straw;Yellow appearance, urine Cloudy Clear specific gravity, urine 1.025 1.000-1.030 pH, urine, semiquantitative 5.5 5.0-8.5 Encounters Code Encounter Date Provider Facility CPT-22246 Level 3 Est. Patient 12:08:11 CDT Jerrod Blackwell MD [facility] CPT-63033 Level 3 Est. 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 Patient 11:55:42 WOMEN'S GARMENT FITTER Jerrod Blackwell MD [facility] CPT-38174 Level 3 Est. Patient 10:29:34 WOMEN'S GARMENT FITTER Jerrod Blackwell MD [facility] CPT-62880 Level 3 New Patient 11:57:16 WOMEN'S GARMENT FITTER Jerrod Blackwell MD [facility]
--- OUTSIDE RECORDS SUMMARY | 2019-05-16 00:05 | XMS REPORT | Clinical Summary ---
Author Author Admin, GI Organization [facility] Address Unknown Phone Unavailable Allergies, Adverse Reactions, [...] Active Jerrod Blackwell MD Loss of weight Urinary tract infection ICD-599.0 Inactive Jerrod Blackwell MD Upper respiratory infection ICD-465.9 Inactive Jerrod Blackwell MD Dysuria ICD-788.1 Inactive Jerrod Blackwell MD Medication List Medication Instructions Start Date Stop Date Generic Name NDC Status Provider Patient Instruction AMBIEN 5 MG ORAL TABLET Take 1/2 tablet at HS ZOLPIDEM TARTRATE 68628282991 Active Mary Gallo APRN Active MIRTAZAPINE 15 MG ORAL TABLET 1 every evening for depression/nutrition MIRTAZAPINE 76592568726 Active Jerrod Blackwell MD Active HALOPERIDOL LACTATE 2 MG/ML ORAL CONCENTRATE 0.5mg by mouth twice daily HALOPERIDOL LACTATE 67476517078 No Longer Active Shagufta Sandovalbrian BO Active EXELON 4.6 MG/24HR TRANSDERMAL PATCH 24 HOUR Apply one daily RIVASTIGMINE 37573714621 No Longer Active Shaguftajames Fonseca APRN Active LORAZEPAM 0.5 MG ORAL TABLET 1 tablet daily as needed for severe aggitation/anxiety LORAZEPAM 96982649611 Active Jerrod Blackwell MD Active DONEPEZIL HCL 10 MG ORAL TABLET DISINTEGRATING 1 qHS DONEPEZIL HCL 42958971373 No Longer Active Nitza Deb Active MIRTAZAPINE 30 MG ORAL TABLET 1 tab at bedtime MIRTAZAPINE 41022582337 No Longer Active Nitza Deb Active RIVASTIGMINE TARTRATE 1.5 MG ORAL CAPSULE 1 cap every evening RIVASTIGMINE TARTRATE 33836043854 No Longer Active Nitza Deb Active MAGNESIUM CITRATE 1.745 GM/30ML ORAL SOLUTION 60ml po times one. MAGNESIUM CITRATE 48092022145 No Longer Active Jerrod Blackwell MD Active CIPRO 250 MG ORAL TABLET 1 tablet by mouth twice daily CIPROFLOXACIN HCL 10817119065 No Longer Active Jerrod Blackwell MD Active ANTI-DIARRHEAL 2 MG ORAL CAPSULE Take 1 capsule every 4 to 6 hours as needed for diarrhea LOPERAMIDE HCL 23715104106 No Longer Active Jerrod Blackwell MD Active ATIVAN 0.5 MG ORAL TABLET 1 twice a day as needed LORAZEPAM 96918055752 No Longer Active Jerrod Blackwell MD Active REMERON 15 MG ORAL TABLET 1 every night for depression MIRTAZAPINE 04358951991 No Longer Active Jerrod Blackwell MD Active NAMENDA 5 MG ORAL TABLET 1 twice a day for memory MEMANTINE HCL 11680968105 No Longer Active Jerrod Blackwell MD Active TYLENOL 325 MG ORAL TABLET 2 tablets every four to six hours as needed for pain ACETAMINOPHEN 41461932927 Active Jerrod Blackwell MD Active DONEPEZIL HCL 5 MG ORAL TABLET 1 every evening, Increase to 10mg every evening after 1 month DONEPEZIL HCL 94469600605 No Longer Active Jerrod Blackwell MD Active EQ MILK OF MAGNESIA SUSPENSION Take 30mL every 6hrs. as needed for constipation MAGNESIUM HYDROXIDE SUSP 90607010912 Active Jerrod Blackwell MD Active DONEPEZIL HCL 5 MG ORAL TABLET 1 every evening, Increase to 10mg every evening after 1 month DONEPEZIL HCL 5 MG ORAL TABLET 247477 DONEPEZIL HCL Inactive NAMENDA 5 MG ORAL TABLET 1 twice a day for memory NAMENDA 5 MG ORAL TABLET 425516 MEMANTINE HCL Inactive REMERON 15 MG ORAL TABLET 1 every night for depression REMERON 15 MG ORAL TABLET 333759 MIRTAZAPINE Inactive ATIVAN 0.5 MG ORAL TABLET 1 twice a day as needed ATIVAN 0.5 MG ORAL TABLET 532995 LORAZEPAM Inactive ANTI-DIARRHEAL 2 MG ORAL CAPSULE Take 1 capsule every 4 to 6 hours as needed for diarrhea ANTI-DIARRHEAL 2 MG ORAL CAPSULE 549852 LOPERAMIDE HCL Inactive CIPRO 250 MG ORAL TABLET 1 tablet by mouth twice daily CIPRO 250 MG ORAL TABLET 184465 CIPROFLOXACIN HCL Inactive MAGNESIUM CITRATE 1.745 GM/30ML ORAL SOLUTION 60ml po times one. MAGNESIUM CITRATE 1.745 GM/30ML ORAL SOLUTION 0267424 MAGNESIUM CITRATE Inactive RIVASTIGMINE TARTRATE 1.5 MG ORAL CAPSULE 1 cap every evening RIVASTIGMINE TARTRATE 1.5 MG ORAL CAPSULE 461377 RIVASTIGMINE TARTRATE Inactive MIRTAZAPINE 30 MG ORAL TABLET 1 tab at bedtime MIRTAZAPINE 30 MG ORAL TABLET 229661 MIRTAZAPINE Inactive DONEPEZIL HCL 10 MG ORAL TABLET DISINTEGRATING 1 qHS DONEPEZIL HCL 10 MG ORAL TABLET DISINTEGRATING 546039 DONEPEZIL HCL Inactive EXELON 4.6 MG/24HR TRANSDERMAL PATCH 24 HOUR Apply one daily EXELON 4.6 MG/24HR TRANSDERMAL PATCH 24 HOUR 207156 RIVASTIGMINE Inactive HALOPERIDOL LACTATE 2 MG/ML ORAL CONCENTRATE 0.5mg by mouth twice daily HALOPERIDOL LACTATE 2 MG/ML ORAL CONCENTRATE 729401 HALOPERIDOL LACTATE Inactive Advance Directives Directive Description Start Date ORDER APPOINTING TEMPORARY GUARDIAN AND CONSERVATOR LETTER OF GUARDIANSHIP AND CONSERVATORSHIP Encounters Code Encounter Date Provider Facility CPT-59979 Level 4 Est. Patient 11:23:55 CDT Jerrod Blackwell MD [facility] CPT-64365 Level 3 Est. Patient 12:57:00 CDT Shagufta Fonseca APRN [facility] CPT-74724 Level 3 Est. Patient 15:37:18 CDT Jerrod Blackwell MD [facility] CPT-76115 Level 3 Est. Patient 12:08:11 CDT Jerrod Blackwell MD [facility] CPT-14403 Level 3 Est. Patient 16:03:05 RN ELIGIBILITY Jerrod Blackwell MD [facility] CPT-38718 Level 4 Est. Patient 11:55:42 RN ELIGIBILITY Jerrod Blackwell MD [facility] CPT-94139 Level 3 Est. Patient 10:29:34 RN ELIGIBILITY Jerrod Blackwell MD [facility] CPT-79666 Level 3 New Patient 11:57:16 RN ELIGIBILITY Jerrod Blackwell MD [facility]
--- OUTSIDE RECORDS SUMMARY | 2019-05-16 00:05 | XMS REPORT | Clinical Summary ---
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 Shagufta Fonseca DERMATOLOGICAL SURGEON Other specified diseases of sebaceous glands Weight [...] Take 1/2 tablet at HS ZOLPIDEM TARTRATE 69920011381 Active Mary Gallo APRN Active MIRTAZAPINE 15 MG ORAL TABS 1 every evening for depression/nutrition MIRTAZAPINE 02728341528 Active Jerrod Blackwell MD Active HALOPERIDOL LACTATE 2 MG/ML ORAL CONC 0.5mg by mouth twice daily HALOPERIDOL LACTATE 73775966929 No Longer Active Shagufta Fonseca APRN Active EXELON 4.6 MG/24HR TRANS PT24 Apply one daily RIVASTIGMINE 58715714490 No Longer Active Shagufta Fonseca APRN Active LORAZEPAM 0.5 MG TABS 1 tablet daily as needed for severe aggitation/anxiety LORAZEPAM 32628446483 Active Jerrod Blackwell MD Active DONEPEZIL HCL 10 MG TBDP 1 qHS DONEPEZIL HCL 40397016253 No Longer Active Nitza Deb Active MIRTAZAPINE 30 MG TABS 1 tab at bedtime MIRTAZAPINE 97874381557 No Longer Active Nitza Deb Active RIVASTIGMINE TARTRATE 1.5 MG CAPS 1 cap every evening RIVASTIGMINE TARTRATE 44064328764 No Longer Active Nitza Deb Active MAGNESIUM CITRATE 1.745 GM/30ML SOLN 60ml po times one. MAGNESIUM CITRATE 26561814289 No Longer Active Jerrod Blackwell MD Active CIPRO 250 MG TAB 1 tablet by mouth twice daily CIPROFLOXACIN HCL 33538095000 No Longer Active Jerrod Blackwell MD Active ANTI-DIARRHEAL 2 MG CAPS Take 1 capsule every 4 to 6 hours as needed for diarrhea LOPERAMIDE HCL 54577064012 No Longer Active Jerrod Blackwell MD Active ATIVAN 0.5 MG TAB 1 twice a day as needed LORAZEPAM 84884715729 No Longer Active Jerrod Blackwell MD Active REMERON 15 MG TABS 1 every night for depression MIRTAZAPINE 45285597454 No Longer Active Jerrod Blackwell MD Active NAMENDA 5 MG TABS 1 twice a day for memory MEMANTINE HCL 00780971200 No Longer Active Jerrod Blackwell MD Active TYLENOL 325 MG TAB 2 tablets every four to six hours as needed for pain ACETAMINOPHEN 80119612905 Active Jerrod Blackwell MD Active DONEPEZIL HCL 5 MG TABS 1 every evening, Increase to 10mg every evening after 1 month DONEPEZIL HCL 09621087954 No Longer Active Jerrod Blackwell MD Active EQ MILK OF MAGNESIA SUSP Take 30mL every 6hrs. as needed for constipation MAGNESIUM HYDROXIDE SUSP 15115479547 Active Jerrod Blackwell MD Active DONEPEZIL HCL 5 MG TABS 1 every evening, Increase to 10mg every evening after 1 month DONEPEZIL HCL 5 MG TABS 158313 DONEPEZIL HCL Inactive NAMENDA 5 MG TABS 1 twice a day for memory NAMENDA 5 MG TABS 507876 MEMANTINE HCL Inactive REMERON 15 MG TABS 1 every night for depression REMERON 15 MG TABS 641940 MIRTAZAPINE Inactive ATIVAN 0.5 MG TAB 1 twice a day as needed ATIVAN 0.5 MG TAB 474764 LORAZEPAM Inactive ANTI-DIARRHEAL 2 MG CAPS Take 1 capsule every 4 to 6 hours as needed for diarrhea ANTI-DIARRHEAL 2 MG CAPS 818090 LOPERAMIDE HCL Inactive CIPRO 250 MG TAB 1 tablet by mouth twice daily CIPRO 250 MG TAB 002466 CIPROFLOXACIN HCL Inactive MAGNESIUM CITRATE 1.745 GM/30ML SOLN 60ml po times one. MAGNESIUM CITRATE 1.745 GM/30ML SOLN 1134442 MAGNESIUM CITRATE Inactive RIVASTIGMINE TARTRATE 1.5 MG CAPS 1 cap every evening RIVASTIGMINE TARTRATE 1.5 MG CAPS 117030 RIVASTIGMINE TARTRATE Inactive MIRTAZAPINE 30 MG TABS 1 tab at bedtime MIRTAZAPINE 30 MG TABS 844015 MIRTAZAPINE Inactive DONEPEZIL HCL 10 MG TBDP 1 qHS DONEPEZIL HCL 10 MG TBDP 073200 DONEPEZIL HCL Inactive EXELON 4.6 MG/24HR TRANS PT24 Apply one daily EXELON 4.6 MG/24HR TRANS PT24 950227 RIVASTIGMINE Inactive HALOPERIDOL LACTATE 2 MG/ML ORAL CONC 0.5mg by mouth twice daily HALOPERIDOL LACTATE 2 MG/ML ORAL CONC 740738 HALOPERIDOL LACTATE Inactive Advance Directives Directive Description Start Date ORDER APPOINTING TEMPORARY GUARDIAN AND CONSERVATOR LETTER OF GUARDIANSHIP AND CONSERVATORSHIP Encounters Code Encounter Date Provider Facility CPT-53140 Level 4 Est. Patient 11:23:55 CDT Jrerod Blackwell MD [facility] CPT-13056 Level 3 Est. Patient 12:57:00 CDT Shagufta Fonseca APRN [facility] CPT-79106 Level 3 Est. Patient 15:37:18 CDT Jerrod Blackwell MD [facility] CPT-59340 Level 3 Est. Patient 12:08:11 CDT Jerrod Blackwell MD [facility] CPT-47815 Level 3 Est. Patient 16:03:05 COST CONTROL SPECIALIST Jerrod Blackwell MD [facility] CPT-27333 Level 4 Est. Patient 11:55:42 COST CONTROL SPECIALIST Jerrod Blackwell MD [facility] CPT-27550 Level 3 Est. Patient 10:29:34 COST CONTROL SPECIALIST Jerrod Blackwell MD [facility] CPT-21497 Level 3 New Patient 11:57:16 COST CONTROL SPECIALIST Jerrod Blackwell MD [facility]
--- OUTSIDE RECORDS SUMMARY | 2019-05-16 00:05 | XMS REPORT | Clinical Summary ---
Author Author Admin, GI Organization [facility] Address Unknown Phone Allergies, Adverse Reactions, Alerts [...] CAPS 1 cap every evening RIVASTIGMINE TARTRATE 78939470365 Active Jerrod Blackwell MD Active MAGNESIUM CITRATE 1.745 GM/30ML SOLN 60ml po times one. MAGNESIUM CITRATE 92326313337 No Longer Active Jerrod Blackwell MD Active CIPRO 250 MG TAB 1 tablet by mouth twice daily CIPROFLOXACIN HCL 09659470286 No Longer Active Jerrod Blackwell MD Active LORAZEPAM 0.5 MG TABS 1 tab twice daily as needed LORAZEPAM 85692116667 Active Jerrod Blackwell MD Active MIRTAZAPINE 30 MG TABS 1 tab at bedtime MIRTAZAPINE 46244476943 Active Jerrod Blackwell MD Active ANTI-DIARRHEAL 2 MG CAPS Take 1 capsule every 4 to 6 hours as needed for diarrhea LOPERAMIDE HCL 42617702719 No Longer Active Jerrod Blackwell MD Active ATIVAN 0.5 MG TAB 1 twice a day as needed LORAZEPAM 61360313874 No Longer Active Jerrod Blackwell MD Active REMERON 15 MG TABS 1 every night for depression MIRTAZAPINE 82786762985 No Longer Active Jerrod Blackwell MD Active NAMENDA 5 MG TABS 1 twice a day for memory MEMANTINE HCL 42823795042 No Longer Active Jerrod Blackwell MD Active TYLENOL 325 MG TAB 2 tablets every four to six hours as needed for pain ACETAMINOPHEN 51265304964 Active Jerrod Blackwell MD Active DONEPEZIL HCL 5 MG TABS 1 every evening, Increase to 10mg every evening after 1 month DONEPEZIL HCL 18187769204 No Longer Active Jerrod Blackwell MD Active DONEPEZIL HCL 10 MG TBDP 1 qHS DONEPEZIL HCL 31378955960 Active Jerrod Blackwell MD Active EQ MILK OF MAGNESIA SUSP Take 30mL every 6hrs. as needed for constipation MAGNESIUM HYDROXIDE SUSP 23516230254 Active Jerrod Blackwell MD Active DONEPEZIL HCL 5 MG TABS 1 every evening, Increase to 10mg every evening after 1 month DONEPEZIL HCL 5 MG TABS 960041 DONEPEZIL HCL Inactive NAMENDA 5 MG TABS 1 twice a day for memory NAMENDA 5 MG TABS MEMANTINE HCL Inactive REMERON 15 MG TABS 1 every night for depression REMERON 15 MG TABS 047577 MIRTAZAPINE Inactive ATIVAN 0.5 MG TAB 1 twice a day as needed ATIVAN 0.5 MG TAB 733411 LORAZEPAM Inactive ANTI-DIARRHEAL 2 MG CAPS Take 1 capsule every 4 to 6 hours as needed for diarrhea ANTI-DIARRHEAL 2 MG CAPS 140078 LOPERAMIDE HCL Inactive CIPRO 250 MG TAB 1 tablet by mouth twice daily CIPRO 250 MG TAB 810550 CIPROFLOXACIN HCL Inactive MAGNESIUM CITRATE 1.745 GM/30ML SOLN 60ml po times one. MAGNESIUM CITRATE 1.745 GM/30ML SOLN 0435647 MAGNESIUM CITRATE Inactive Advance Directives Directive Description Start Date [...] ... - Chemistry sodium, serum 141 mmol/L 233-569 4084/11/20 potassium, serum 4.4 mmol/L 3.5-5.2 chloride, serum [...] 5.0-8.5 Encounters Code Encounter Date Provider Facility CPT-57049 Level 3 Est. Patient 12:08:11 CDT Jerrod Blackwell MD [facility] CPT-07780 Level 3 Est. Patient 16:03:05 DATA VIRTUALIZATION CONSULTANT Jerrod Blackwell MD [facility] CPT-25316 Level 4 Est. Patient 11:55:42 DATA VIRTUALIZATION CONSULTANT Jerrod Blackwell MD [facility] CPT-23950 Level 3 Est. Patient 10:29:34 DATA VIRTUALIZATION CONSULTANT Jerrod Blackwell MD [facility] CPT-29866 Level 3 New Patient 11:57:16 DATA VIRTUALIZATION CONSULTANT Jerrod Blackwell MD [facility]
--- OUTSIDE RECORDS SUMMARY | 2019-05-16 00:06 | XMS REPORT | Clinical Summary ---
Author Author Admin, GI Organization [facility] Address Unknown Phone Allergies, Adverse Reactions, Alerts [...] CAPS 1 cap every evening RIVASTIGMINE TARTRATE 24042998223 Active Jerrod Blackwell MD Active MAGNESIUM CITRATE 1.745 GM/30ML SOLN 60ml po times one. MAGNESIUM CITRATE 43832389787 No Longer Active Jerrod Blackwell MD Active CIPRO 250 MG TAB 1 tablet by mouth twice daily CIPROFLOXACIN HCL 68347639433 No Longer Active Jerrod Blackwell MD Active LORAZEPAM 0.5 MG TABS 1 tab twice daily as needed LORAZEPAM 88789789240 Active Jerrod Blackwell MD Active MIRTAZAPINE 30 MG TABS 1 tab at bedtime MIRTAZAPINE 81719165645 Active Jerrod Blackwell MD Active ANTI-DIARRHEAL 2 MG CAPS Take 1 capsule every 4 to 6 hours as needed for diarrhea LOPERAMIDE HCL 24028113637 No Longer Active Jerrod Blackwell MD Active ATIVAN 0.5 MG TAB 1 twice a day as needed LORAZEPAM 73764448207 No Longer Active Jerrod Blackwlel MD Active REMERON 15 MG TABS 1 every night for depression MIRTAZAPINE 83329619993 No Longer Active Jerrod Blackwell MD Active NAMENDA 5 MG TABS 1 twice a day for memory MEMANTINE HCL 95013391191 No Longer Active Jerrod Blackwell MD Active TYLENOL 325 MG TAB 2 tablets every four to six hours as needed for pain ACETAMINOPHEN 24208289714 Active Jerrod Blackwell MD Active DONEPEZIL HCL 5 MG TABS 1 every evening, Increase to 10mg every evening after 1 month DONEPEZIL HCL 10336847179 No Longer Active Jerrod Blackwell MD Active DONEPEZIL HCL 10 MG TBDP 1 qHS DONEPEZIL HCL 96172987572 Active Jerrod Blackwell MD Active EQ MILK OF MAGNESIA SUSP Take 30mL every 6hrs. as needed for constipation MAGNESIUM HYDROXIDE SUSP 91105377578 Active Jerrod Blackwell MD Active DONEPEZIL HCL 5 MG TABS 1 every evening, Increase to 10mg every evening after 1 month DONEPEZIL HCL 5 MG TABS 055342 DONEPEZIL HCL Inactive NAMENDA 5 MG TABS 1 twice a day for memory NAMENDA 5 MG TABS MEMANTINE HCL Inactive REMERON 15 MG TABS 1 every night for depression REMERON 15 MG TABS 065746 MIRTAZAPINE Inactive ATIVAN 0.5 MG TAB 1 twice a day as needed ATIVAN 0.5 MG TAB 886368 LORAZEPAM Inactive ANTI-DIARRHEAL 2 MG CAPS Take 1 capsule every 4 to 6 hours as needed for diarrhea ANTI-DIARRHEAL 2 MG CAPS 557082 LOPERAMIDE HCL Inactive CIPRO 250 MG TAB 1 tablet by mouth twice daily CIPRO 250 MG TAB 180167 CIPROFLOXACIN HCL Inactive MAGNESIUM CITRATE 1.745 GM/30ML SOLN 60ml po times one. MAGNESIUM CITRATE 1.745 GM/30ML SOLN 3782777 MAGNESIUM CITRATE Inactive Advance Directives Directive Description [...] ... - Chemistry sodium, serum 141 mmol/L 264-869 4042/11/20 potassium, serum 4.4 mmol/L 3.5-5.2 chloride, serum [...] 5.0-8.5 Encounters Code Encounter Date Provider Facility CPT-66340 Level 3 Est. Patient 12:08:11 CDT Jerrod Blackwell MD [facility] CPT-53514 Level 3 Est. Patient 16:03:05 RNP Jerrod Blackwell MD [facility] CPT-88429 Level 4 Est. Patient 11:55:42 RNP Jerrod Blackwell MD [facility] CPT-48647 Level 3 Est. Patient 10:29:34 RNP Jerrod Blackwell MD [facility] CPT-04471 Level 3 New Patient 11:57:16 RNP Jrerod Blackwell MD [facility]
--- OUTSIDE RECORDS SUMMARY | 2019-05-16 00:06 | XMS REPORT | Clinical Summary ---
Author Author Admin, GI Organization [facility] Address Unknown Phone Allergies, Adverse Reactions, Alerts [...] CAPS 1 cap every evening RIVASTIGMINE TARTRATE 53389505739 Active Jerrod Blackwell MD Active MAGNESIUM CITRATE 1.745 GM/30ML SOLN 60ml po times one. MAGNESIUM CITRATE 05441363271 No Longer Active Jerrod Blackwell MD Active CIPRO 250 MG TAB 1 tablet by mouth twice daily CIPROFLOXACIN HCL 83891224668 No Longer Active Jerrod Blackwell MD Active LORAZEPAM 0.5 MG TABS 1 tab twice daily as needed LORAZEPAM 71427797747 Active Jerrod Blackwell MD Active MIRTAZAPINE 30 MG TABS 1 tab at bedtime MIRTAZAPINE 25391640979 Active Jerrod Blackwell MD Active ANTI-DIARRHEAL 2 MG CAPS Take 1 capsule every 4 to 6 hours as needed for diarrhea LOPERAMIDE HCL 08594735010 No Longer Active Jerrod Blackwell MD Active ATIVAN 0.5 MG TAB 1 twice a day as needed LORAZEPAM 74030367162 No Longer Active Jerrod Blackwell MD Active REMERON 15 MG TABS 1 every night for depression MIRTAZAPINE 68236423786 No Longer Active Jerrod Blackwell MD Active NAMENDA 5 MG TABS 1 twice a day for memory MEMANTINE HCL 37285470440 No Longer Active Jerrod Blackwell MD Active TYLENOL 325 MG TAB 2 tablets every four to six hours as needed for pain ACETAMINOPHEN 96109379362 Active Jerrod Blackwell MD Active DONEPEZIL HCL 5 MG TABS 1 every evening, Increase to 10mg every evening after 1 month DONEPEZIL HCL 57285360824 No Longer Active Jerrod Blackwell MD Active DONEPEZIL HCL 10 MG TBDP 1 qHS DONEPEZIL HCL 14410928294 Active Jerrod Blackwell MD Active EQ MILK OF MAGNESIA SUSP Take 30mL every 6hrs. as needed for constipation MAGNESIUM HYDROXIDE SUSP 06973840451 Active Jerrod Blackwell MD Active ATIVAN 0.5 MG TAB 1 twice a day as needed ATIVAN 0.5 MG TAB 179222 LORAZEPAM Inactive CIPRO 250 MG TAB 1 tablet by mouth twice daily CIPRO 250 MG TAB 583241 CIPROFLOXACIN HCL Inactive MAGNESIUM CITRATE 1.745 GM/30ML SOLN 60ml po times one. MAGNESIUM CITRATE 1.745 GM/30ML SOLN 2061776 MAGNESIUM CITRATE Inactive REMERON 15 MG TABS 1 every night for depression REMERON 15 MG TABS 612328 MIRTAZAPINE Inactive DONEPEZIL HCL 5 MG TABS 1 every evening, Increase to 10mg every evening after 1 month DONEPEZIL HCL 5 MG TABS 890163 DONEPEZIL HCL Inactive NAMENDA 5 MG TABS 1 twice a day for memory NAMENDA 5 MG TABS MEMANTINE HCL Inactive ANTI-DIARRHEAL 2 MG CAPS Take 1 capsule every 4 to 6 hours as needed for diarrhea ANTI-DIARRHEAL 2 MG CAPS 860029 LOPERAMIDE HCL Inactive Advance Directives Directive Description [...] ... - Chemistry sodium, serum 141 mmol/L 525-072 0015/11/20 potassium, serum 4.4 mmol/L 3.5-5.2 chloride, serum [...] 5.0-8.5 Encounters Code Encounter Date Provider Facility CPT-93141 Level 3 Est. Patient 12:08:11 CDT Jerrod Blackwell MD [facility] CPT-81720 Level 3 Est. Patient 16:03:05 GUIDE WINDER Jerrod Blackwell MD [facility] CPT-84291 Level 4 Est. Patient 11:55:42 GUIDE WINDER Jerrod Blackwell MD [facility] CPT-07385 Level 3 Est. Patient 10:29:34 GUIDE WINDER Jerrod Blackwell MD [facility] CPT-35039 Level 3 New Patient 11:57:16 GUIDE WINDER Jerrod Blackwell MD [facility]
--- OUTSIDE RECORDS SUMMARY | 2019-05-16 00:06 | XMS REPORT | Clinical Summary ---
Author Author Admin, GI Organization [facility] Address Unknown Phone Allergies, Adverse Reactions, [...] CAPS 1 cap every evening RIVASTIGMINE TARTRATE 47859963648 Active Jerrod Blackwell MD Active MAGNESIUM CITRATE 1.745 GM/30ML SOLN 60ml po times one. MAGNESIUM CITRATE 22444178228 No Longer Active Jerrod Blackwell MD Active CIPRO 250 MG TAB 1 tablet by mouth twice daily CIPROFLOXACIN HCL 97423231452 No Longer Active Jerrod Blackwell MD Active LORAZEPAM 0.5 MG TABS 1 tab twice daily as needed LORAZEPAM 11730537002 Active Jerrod Blackwell MD Active MIRTAZAPINE 30 MG TABS 1 tab at bedtime MIRTAZAPINE 90118262331 Active Jerrod Blackwell MD Active ANTI-DIARRHEAL 2 MG CAPS Take 1 capsule every 4 to 6 hours as needed for diarrhea LOPERAMIDE HCL 25562599564 No Longer Active Jerrod Blackwell MD Active ATIVAN 0.5 MG TAB 1 twice a day as needed LORAZEPAM 47295946858 No Longer Active Jerrod Blackwell MD Active REMERON 15 MG TABS 1 every night for depression MIRTAZAPINE 58687641158 No Longer Active Jerrod Blackwell MD Active NAMENDA 5 MG TABS 1 twice a day for memory MEMANTINE HCL 01597519360 No Longer Active Jerrod Blackwell MD Active TYLENOL 325 MG TAB 2 tablets every four to six hours as needed for pain ACETAMINOPHEN 99319224490 Active Jerrod Blackwell MD Active DONEPEZIL HCL 5 MG TABS 1 every evening, Increase to 10mg every evening after 1 month DONEPEZIL HCL 19394697336 No Longer Active Jerrod Blackwell MD Active DONEPEZIL HCL 10 MG TBDP 1 qHS DONEPEZIL HCL 48816885622 Active Jerrod Blackwell MD Active EQ MILK OF MAGNESIA SUSP Take 30mL every 6hrs. as needed for constipation MAGNESIUM HYDROXIDE SUSP 65353683387 Active Jerrod Blackwell MD Active DONEPEZIL HCL 5 MG TABS 1 every evening, Increase to 10mg every evening after 1 month DONEPEZIL HCL 5 MG TABS 758028 DONEPEZIL HCL Inactive NAMENDA 5 MG TABS 1 twice a day for memory NAMENDA 5 MG TABS MEMANTINE HCL Inactive REMERON 15 MG TABS 1 every night for depression REMERON 15 MG TABS 118125 MIRTAZAPINE Inactive ATIVAN 0.5 MG TAB 1 twice a day as needed ATIVAN 0.5 MG TAB 338300 LORAZEPAM Inactive ANTI-DIARRHEAL 2 MG CAPS Take 1 capsule every 4 to 6 hours as needed for diarrhea ANTI-DIARRHEAL 2 MG CAPS 220972 LOPERAMIDE HCL Inactive CIPRO 250 MG TAB 1 tablet by mouth twice daily CIPRO 250 MG TAB 578498 CIPROFLOXACIN HCL Inactive MAGNESIUM CITRATE 1.745 GM/30ML SOLN 60ml po times one. MAGNESIUM CITRATE 1.745 GM/30ML SOLN 2868057 MAGNESIUM CITRATE Inactive Advance Directives Directive Description [...] ... - Chemistry sodium, serum 141 mmol/L 943-253 0510/11/20 potassium, serum 4.4 mmol/L 3.5-5.2 chloride, serum [...] 5.0-8.5 Encounters Code Encounter Date Provider Facility CPT-29214 Level 3 Est. Patient 12:08:11 CDT Jerrod Blackwell MD [facility] CPT-12370 Level 3 Est. Patient 16:03:05 DERMATOLOGIST AND DERMATOPATHOLOGIST Jerrod Blackwell MD [facility] CPT-53500 Level 4 Est. Patient 11:55:42 DERMATOLOGIST AND DERMATOPATHOLOGIST Jerrod Blackwell MD [facility] CPT-14463 Level 3 Est. Patient 10:29:34 DERMATOLOGIST AND DERMATOPATHOLOGIST Jerrod Blackwell MD [facility] CPT-38639 Level 3 New Patient 11:57:16 DERMATOLOGIST AND DERMATOPATHOLOGIST Jerrod Blackwell MD [facility]
--- OUTSIDE RECORDS SUMMARY | 2019-05-16 00:06 | XMS REPORT | Clinical Summary ---
Author Author Admin, GI Organization [facility] Address Unknown Phone Allergies, Adverse Reactions, Alerts [...] CAPS 1 cap every evening RIVASTIGMINE TARTRATE 33675469581 Active Jerrod Blackwell MD Active MAGNESIUM CITRATE 1.745 GM/30ML SOLN 60ml po times one. MAGNESIUM CITRATE 63062575644 No Longer Active Jerrod Blackwell MD Active CIPRO 250 MG TAB 1 tablet by mouth twice daily CIPROFLOXACIN HCL 51413669677 No Longer Active Jerrod Blackwell MD Active LORAZEPAM 0.5 MG TABS 1 tab twice daily as needed LORAZEPAM 02918766327 Active Jerrod Blackwell MD Active MIRTAZAPINE 30 MG TABS 1 tab at bedtime MIRTAZAPINE 10744627589 Active Jerrod Blackwell MD Active ANTI-DIARRHEAL 2 MG CAPS Take 1 capsule every 4 to 6 hours as needed for diarrhea LOPERAMIDE HCL 43473341613 No Longer Active Jerrod Blackwell MD Active ATIVAN 0.5 MG TAB 1 twice a day as needed LORAZEPAM 68830461584 No Longer Active Jerrod Blackwell MD Active REMERON 15 MG TABS 1 every night for depression MIRTAZAPINE 78264506019 No Longer Active Jerrod Blackwell MD Active NAMENDA 5 MG TABS 1 twice a day for memory MEMANTINE HCL 69721231633 No Longer Active Jerrod Blackwell MD Active TYLENOL 325 MG TAB 2 tablets every four to six hours as needed for pain ACETAMINOPHEN 80544655784 Active Jerrod Blackwell MD Active DONEPEZIL HCL 5 MG TABS 1 every evening, Increase to 10mg every evening after 1 month DONEPEZIL HCL 32412496652 No Longer Active Jerrod Blackewll MD Active DONEPEZIL HCL 10 MG TBDP 1 qHS DONEPEZIL HCL 88515004097 Active Jerrod Blackwell MD Active EQ MILK OF MAGNESIA SUSP Take 30mL every 6hrs. as needed for constipation MAGNESIUM HYDROXIDE SUSP 42825824593 Active Jerrod Blackwell MD Active DONEPEZIL HCL 5 MG TABS 1 every evening, Increase to 10mg every evening after 1 month DONEPEZIL HCL 5 MG TABS 178186 DONEPEZIL HCL Inactive NAMENDA 5 MG TABS 1 twice a day for memory NAMENDA 5 MG TABS MEMANTINE HCL Inactive REMERON 15 MG TABS 1 every night for depression REMERON 15 MG TABS 292387 MIRTAZAPINE Inactive ATIVAN 0.5 MG TAB 1 twice a day as needed ATIVAN 0.5 MG TAB 114211 LORAZEPAM Inactive ANTI-DIARRHEAL 2 MG CAPS Take 1 capsule every 4 to 6 hours as needed for diarrhea ANTI-DIARRHEAL 2 MG CAPS 344577 LOPERAMIDE HCL Inactive CIPRO 250 MG TAB 1 tablet by mouth twice daily CIPRO 250 MG TAB 956545 CIPROFLOXACIN HCL Inactive MAGNESIUM CITRATE 1.745 GM/30ML SOLN 60ml po times one. MAGNESIUM CITRATE 1.745 GM/30ML SOLN 9582352 MAGNESIUM CITRATE Inactive Advance Directives Directive Description [...] ... - Chemistry sodium, serum 141 mmol/L 118-765 1917/11/20 potassium, serum 4.4 mmol/L 3.5-5.2 chloride, serum [...] 5.0-8.5 Encounters Code Encounter Date Provider Facility CPT-43784 Level 3 Est. Patient 12:08:11 CDT Jerrod Blackwell MD [facility] CPT-98787 Level 3 Est. Patient 16:03:05 GALVANOMETER ASSEMBLER Jerrod Blackwell MD [facility] CPT-47654 Level 4 Est. Patient 11:55:42 GALVANOMETER ASSEMBLER Jerrod Blackwell MD [facility] CPT-91355 Level 3 Est. Patient 10:29:34 GALVANOMETER ASSEMBLER Jerrod Blackwell MD [facility] CPT-95520 Level 3 New Patient 11:57:16 GALVANOMETER ASSEMBLER Jerrod Blackwell MD [facility]
--- OUTSIDE RECORDS SUMMARY | 2019-05-16 00:07 | XMS REPORT | Continuity of Care Document ---
Author Organization Unknown Address Unknown Phone Unavailable Allergies Active Description Code Type Severity Reaction Onset Reported/Identified Relationship to Patient Clinical Status Yes ASPIRIN UNKNOWN OTHER Yes ASPIRIN UNKNOWN UNKNOWN Medications Medication Packaging Start Date Stop Date Route Dosage Sig QUETIAPINE TAB 25 MG (SEROQUEL) MG 12/23/2018 01/22/2019 BID&0800,2000 Docusate sodium 100mg oral capsule (COLACE) 12/23/2018 01/22/2019 BID&0800,2000 ACETAMINOPHEN ORAL TABLET 325mg(Tylenol) MG 12/23/2018 01/22/2019 PRN EVERY 6 Hour LOPERAMIDE CAP 2 MG (IMMODIUM) MG 12/23/2018 01/22/2019 PRN QID LORAZEPAM TAB 0.5 MG (ATIVAN) MG 12/23/2018 12/24/2018 PRN Q8H ALUM/MAG/SIMETH 30CC LIQ (MYLANTA PLUS) cc 12/23/2018 01/22/2019 PRN Q4H POLYETHYLENE GLYCOL POWDER UD PWD (MIRALAX 17GM UNIT DOSE PAKS) gm 12/23/2018 01/22/2019 PRN Q3H QUETIAPINE TAB 25 MG (SEROQUEL) MG 12/24/2018 01/22/2019 BID&0800,2000 MILK OF MAGNJOSELINE LIQ ml 12/24/2018 01/23/2019 PRN BID LORATADINE TAB 10 MG (CLARITIN) MG 12/24/2018 01/23/2019 PRN Daily GLIMEPIRIDE TAB 2 MG (AMARYL) MG 12/24/2018 01/22/2019 Daily&0900 BISACODYL SUPPOS 10 MG (DULCOLAX SUPPOS) MG 12/24/2018 01/23/2019 PRN Daily HALOPERIDOL TAB 5 MG (HALDOL) MG 12/24/2018 12/25/2018 Q6H&0600,1800,2359 SERTRALINE TAB 50 MG (ZOLOFT) MG 12/26/2018 01/24/2019 Daily&0800 SENNA CONC/DOCUSATE TAB (SENOKOT S) TAB 12/27/2018 01/25/2019 BID&0800,2000 FLUVOXAMINE TAB 50 MG (LUVOX) MG 12/30/2018 12/30/2018 ONCE&1200 QUETIAPINE TAB 100 MG (SEROQUEL) MG 12/30/2018 01/29/2019 BID&0800,2000 FLUVOXAMINE TAB 50 MG (LUVOX) MG 12/30/2018 01/29/2019 BID&0800,2000 POLYETHYLENE GLYCOL POWDER UD PWD (MIRALAX 17GM UNIT DOSE PAKS) gm 01/03/2019 02/02/2019 PRN Q3H HALOPERIDOL VIAL INJ 5 MG/CC (HALDOL 1CC VIAL) MG 01/03/2019 01/03/2019 PRN ONCE LORAZEPAM 1CC VIAL INJ 2 MG/CC (ATIVAN VIAL) MG 01/03/2019 01/03/2019 PRN ONCE LORAZEPAM 1CC VIAL INJ 2 MG/CC (ATIVAN VIAL) MG 01/03/2019 01/10/2019 PRN Q6H FLUVOXAMINE TAB 50 MG (LUVOX) MG 01/04/2019 02/03/2019 BID&0800,2000 Lorazepam oral tablet 0.25mg (Ativan) MG 01/05/2019 01/13/2019 Q48H&0600 ACETAMINOPHEN ORAL TABLET 325mg(Tylenol) MG 02/17/2019 03/19/2019 PRN EVERY 6 Hour NORMAL SALINE 500CC IV BAG INJ 0.9 % (NS 500CC IV BAG) ml 02/17/2019 02/17/2019 ONCE&1312 QUETIAPINE TAB 100 MG (SEROQUEL) MG 02/17/2019 03/19/2019 TID&0800,1400,2000 ALUM/MAG/SIMETH 30CC LIQ (MYLANTA PLUS) cc 02/17/2019 03/19/2019 PRN Q4H POLYETHYLENE GLYCOL POWDER UD PWD (MIRALAX 17GM UNIT DOSE PAKS) gm 02/17/2019 03/19/2019 PRN Q3H RISPERIDONE TAB 0.5 MG (RISPERDAL) MG 02/17/2019 02/17/2019 ONCE&1530 LOPERAMIDE CAP 2 MG (IMMODIUM) MG 02/17/2019 03/19/2019 PRN QID RISPERIDONE TAB 0.5 MG (RISPERDAL) MG 02/17/2019 03/19/2019 TID&0800,1400,2000 FLUVOXAMINE TAB 50 MG (LUVOX) MG 02/17/2019 03/19/2019 BID&0800,2000 SENNA CONC/DOCUSATE TAB (SENOKOT S) TAB 02/17/2019 03/19/2019 BID&0800,2000 LACTULOSE SYRUP LIQ 20 GM/30CC (CHRONULAC SYRUP) GM 02/17/2019 03/19/2019 BID&0800,2000 MILK OF MAGNESIA LIQ ml 02/17/2019 03/19/2019 PRN QHS HALOPERIDOL TAB 5 MG (HALDOL) MG 02/17/2019 03/19/2019 PRN Q8H Lorazepam oral tablet 0.25mg (Ativan) MG 02/18/2019 03/18/2019 Q48H&0500 LORATADINE TAB 10 MG (CLARITIN) MG 02/18/2019 03/20/2019 PRN Daily SERTRALINE TAB 50 MG (ZOLOFT) MG 02/18/2019 03/19/2019 Daily&0900 Lorazepam oral tablet 0.25mg (Ativan) MG 02/18/2019 02/28/2019 PRN Daily HALOPERIDOL TAB 0.5 MG (HALDOL) MG 02/18/2019 02/25/2019 PRN Q8H GUAIFENESIN Syrup LIQ (ROBITUSSIN) 100mg/5mL 02/20/2019 02/27/2019 PRN Q4H MIRTAZAPINE TAB 15 MG (REMERON) MG 02/20/2019 03/21/2019 QHS&2100 RISPERIDONE TAB 0.5 MG (RISPERDAL) MG 02/24/2019 03/25/2019 Daily&0600 RISPERIDONE TAB 0.5 MG (RISPERDAL) MG 02/24/2019 03/25/2019 Daily&1200 RISPERIDONE TAB 1 MG (RISPERDAL) MG 02/24/2019 03/25/2019 QPM&1800 SENNA CONC/DOCUSATE TAB (SENOKOT S) TAB 02/26/2019 03/28/2019 BID&0800,2000 RISPERIDONE TAB 0.5 MG (RISPERDAL) MG 02/27/2019 02/27/2019 ONCE&0849 SENNA CONC/DOCUSATE TAB (SENOKOT S) TAB 02/27/2019 03/28/2019 Daily&0900 RISPERIDONE TAB 0.25 MG (RISPERDAL) MG 02/27/2019 03/28/2019 Daily&1200 RISPERIDONE TAB 0.5 MG (RISPERDAL) MG 02/27/2019 03/28/2019 Daily&1800 RISPERIDONE TAB 0.25 MG (RISPERDAL) MG 02/27/2019 03/28/2019 Daily&1800 RISPERIDONE TAB 0.25 MG (RISPERDAL) MG 02/28/2019 03/29/2019 Daily&0600 SERTRALINE TAB 50 MG (ZOLOFT) MG 02/28/2019 03/29/2019 Daily&0900 SENNA CONC/DOCUSATE TAB (SENOKOT S) TAB 03/02/2019 03/31/2019 BID&0800,2000 BISACODYL SUPPOS 10 MG (DULCOLAX SUPPOS) MG 03/03/2019 03/10/2019 PRN Daily ACETAMINOPHEN ORAL TABLET 325mg(Tylenol) MG 03/03/2019 04/02/2019 TID&0800,1400,2000 LACTOBACILLUS BULGARIS TAB (LACTINEX BULGARIS) tab 03/03/2019 03/13/2019 TID&0700,1200,1730 AMOX-CLAV 500/125 TAB 500 MG-125MG (AUGMENTIN) TAB 03/03/2019 03/08/2019 BID&0800,2000 RISPERIDONE TAB 0.5 MG (RISPERDAL) MG 03/04/2019 04/02/2019 Daily&1800 Problems Date Dx Coded Attending Type Code Diagnosis Diagnosed By 12/23/2018 RIP SEVERINO 250.00 DIABETES MELLITUS WITHOUT MENTION OF COMPLICATION, TYPE II OR UNSPECIFIED TYPE, NOT STATED UNCONTROLLED 12/23/2018 RIP SEVERINO 296.30 MAJOR DEPRESSIVE DISORDER, RECURRENT EPISODE, UNSPECIFIED DEGREE 12/23/2018 RIP SEVERINO 780.99 OTHER GENERAL SYMPTOMS 12/23/2018 RIP SEVERINO E11.9 TYPE 2 DIABETES MELLITUS WITHOUT COMPLICATIONS 12/23/2018 RIP SEVERINO F03 UNSPECIFIED DEMENTIA 12/23/2018 RIP SEVERINO F33.9 MAJOR DEPRESSIVE DISORDER, RECURRENT, UNSPECIFIED 12/23/2018 JOSEGLRIP MARQUIS R41.9 UNSPECIFIED SYMPTOMS AND SIGNS INVOLVING COGNITIVE FUNCTIONS AND AWARENESS 01/09/2019 RIP SEVERINO W 250.00 DIABETES MELLITUS WITHOUT MENTION OF COMPLICATION, TYPE II OR UNSPECIFIED TYPE, NOT STATED UNCONTROLLED 01/09/2019 RIP SEVERINO 276.1 HYPOSMOLALITY AND/OR HYPONATREMIA 01/09/2019 RIP SEVERINO W 290.41 01/09/2019 JESSETAGLRIP MARQUIS W 295.70 01/09/2019 RIP SEVERINO W 296.30 MAJOR DEPRESSIVE DISORDER, RECURRENT EPISODE, UNSPECIFIED DEGREE 01/09/2019 RIP SEVERINO W 300.00 01/09/2019 JOSEGLRIP MARQUIS W 564.00 01/09/2019 RIP SEVERINO W 780.99 OTHER GENERAL SYMPTOMS 01/09/2019 RIP SEVERINO E11.9 TYPE 2 DIABETES MELLITUS WITHOUT COMPLICATIONS 01/09/2019 RIP SEVERINO E87.1 HYPO-OSMOLALITY AND HYPONATREMIA 01/09/2019 RIP SEVERINO 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 01/09/2019 RIP SEVERINO F03 UNSPECIFIED DEMENTIA 01/09/2019 RIP SEVERINO F25.0 SCHIZOAFFECTIVE DISORDER, BIPOLAR TYPE 01/09/2019 RIP SEVERINO F33.9 MAJOR DEPRESSIVE DISORDER, RECURRENT, UNSPECIFIED 01/09/2019 RIP SEVERINO F41.9 ANXIETY DISORDER, UNSPECIFIED 01/09/2019 RIP SEVERINO K59.09 OTHER CONSTIPATION 01/09/2019 RIP SEVERINO R41.9 UNSPECIFIED SYMPTOMS AND SIGNS INVOLVING COGNITIVE FUNCTIONS AND AWARENESS 02/17/2019 RIP SEVERINO W 780.99 OTHER GENERAL SYMPTOMS 02/17/2019 RIP SEVERINO R41.9 UNSPECIFIED SYMPTOMS AND SIGNS INVOLVING COGNITIVE FUNCTIONS AND AWARENESS Procedures There is no data. Results Test Result Range Comprehensive Metabolic Panel - 12/23/18 17:35 Albumin 4.1 g/dL 3.6-5.1 ALP 98 U/L 35-130 ALT 10 U/L 6-45 Anion Gap 16 6-14 AST 20 U/L 2-40 BUN 21 mg/dL 5-25 Calcium 9.1 mg/dL 8.3-10.4 Chloride 97 mmol/L 95-114 CO2 23 mEq/L 22-33 Creat 0.77 mg/dL 0.50-1.50 eGFR 71 mL/min/1.73m2 >59 Globulin 2.9 g/dL 2.3-3.5 Glucose 64 mg/dL 70-110 Osmo 272 280-295 Potassium 4.6 mmol/L 3.5-5.3 Sodium 131 mmol/L 134-148 TBil 0.4 mg/dL 0.2-1.2 TP 7.0 g/dL 6.0-8.3 Hemoglobin A1C - 12/23/18 17:35 % A1C 5.60 % 5.40-6.60 AvGlu 121 mg/dL 70-110 MRSA Screen - 12/23/18 17:35 FINAL CULTURE RESULTS MRSA Negative Nasal Culture MEDIA PLATED Setup at 17:48 on 12/23/2018 Lipid Panel - 12/24/18 05:53 C/HDL 3.7 3.7-6.7 Cholesterol 131 mg/dL 100-240 HDL 35 mg/dL 30-85 LDL-Calculated 78 mg/dL 0-100 Trig 88 mg/dL 35-160 VLDL 18 mg/dL 0-42 Comprehensive Metabolic Panel - 12/30/18 05:00 Albumin 3.4 g/dL 3.6-5.1 ALP 84 U/L 35-130 ALT 9 U/L 6-45 Anion Gap 13 6-14 AST 20 U/L 2-40 BUN 26 mg/dL 5-25 Calcium 8.6 mg/dL 8.3-10.4 Chloride 98 mmol/L 95-114 CO2 28 mEq/L 22-33 Creat 0.82 mg/dL 0.50-1.50 eGFR 66 mL/min/1.73m2 >59 Globulin 2.2 g/dL 2.3-3.5 Glucose 97 mg/dL 70-110 Osmo 284 280-295 Potassium 4.2 mmol/L 3.5-5.3 Sodium 135 mmol/L 134-148 TBil 0.6 mg/dL 0.2-1.2 TP 5.6 g/dL 6.0-8.3 Comprehensive Metabolic Panel - 01/06/19 04:45 Albumin 3.4 g/dL 3.6-5.1 ALP 88 U/L 35-130 ALT 9 U/L 6-45 Anion Gap 17 6-14 AST 19 U/L 2-40 BUN 23 mg/dL 5-25 Calcium 8.7 mg/dL 8.3-10.4 Chloride 101 mmol/L 95-114 CO2 25 mEq/L 22-33 Creat 0.79 mg/dL 0.50-1.50 eGFR 69 mL/min/1.73m2 >59 Globulin 2.2 g/dL 2.3-3.5 Glucose 104 mg/dL 70-110 Osmo 289 280-295 Potassium 4.8 mmol/L 3.5-5.3 Sodium 138 mmol/L 134-148 TBil 0.5 mg/dL 0.2-1.2 TP 5.6 g/dL 6.0-8.3 Thyroid Stimulating Hormone - 02/17/19 12:01 TSH 1.82 mIU/mL 0.32-5.00 MRSA Screen - 02/17/19 12:01 FINAL CULTURE RESULTS MRSA Negative Nasal Culture MEDIA PLATED Setup at 12:09 on 02/17/2019 Lipid Panel - 02/18/19 04:50 C/HDL 3.9 3.7-6.7 Cholesterol 122 mg/dL 100-240 HDL 31 mg/dL 30-85 LDL-Calculated 68 mg/dL 0-100 Trig 114 mg/dL 35-160 VLDL 23 mg/dL 0-42 Rapid Drug Screen + ETOH,Medical - 02/19/19 10:41 Amphetamine NEGATIVE NEGATIVE Barbiturates NEGATIVE NEGATIVE Benzodiazepines NEGATIVE NEGATIVE Cocaine NEGATIVE NEGATIVE Ethanol, Urine <10.00 mg/dL 20.00-80.00 Marijuana NEGATIVE NEGATIVE Methylenedioxymethamphetamine NEGATIVE NEGATIVE Opiates NEGATIVE NEGATIVE Oxycodone NEGATIVE NEGATIVE Phencyclidine NEGATIVE NEGATIVE Propoxyphene NEGATIVE NEGATIVE Tricyclic Antidepressant NEGATIVE NEGATIVE CBC with Auto Diff - 02/24/19 05:30 Baso% 0.70 % 0.00-2.50 Eos 0.1 K/uL 0.0-0.7 Eos% 2.2 % 0.0-7.0 Hct 34.8 % 36.0-46.0 Hgb 11.5 g/dL 13.0-15.0 Lym 2.32 K/uL 0.60-3.40 Lym% 39.0 % 10.0-50.0 MCH 29.0 pg 27.0-31.0 MCHC 33.0 g/dL 32.0-36.0 MCV 87.7 fL 80.0-97.0 [place]% 7.4 % 0.0-12.0 MPV 9.4 fL 7.4-10.0 Dain% 50.7 % 37.0-80.0 Plt 336 K/uL 150-400 RBC 3.97 M/uL 3.60-5.00 RDW 11.5 % 11.6-14.8 WBC 5.95 K/uL 5.00-10.00 Dain 3.02 K/uL 2.00-6.90 [place]ham 0.4 K/uL 0.0-0.9 Baso 0.0 K/uL 0.0-0.2 Comprehensive Metabolic Panel - 02/24/19 05:30 Albumin 3.7 g/dL 3.6-5.1 ALP 111 U/L 35-130 ALT 9 U/L 6-45 Anion Gap 15 6-14 AST 13 U/L 2-40 BUN 24 mg/dL 5-25 Calcium 9.6 mg/dL 8.3-10.4 Chloride 100 mmol/L 95-114 CO2 27 mEq/L 22-33 Creat 0.92 mg/dL 0.50-1.50 eGFR 58 mL/min/1.73m2 >59 Globulin 2.3 g/dL 2.3-3.5 Glucose 133 mg/dL 70-110 Osmo 289 280-295 Potassium 4.5 mmol/L 3.5-5.3 Sodium 137 mmol/L 134-148 TBil 0.7 mg/dL 0.2-1.2 TP 6.0 g/dL 6.0-8.3 Comprehensive Metabolic Panel - 03/03/19 05:10 Albumin 3.4 g/dL 3.6-5.1 ALP 96 U/L 35-130 ALT 8 U/L 6-45 Anion Gap 13 6-14 AST 12 U/L 2-40 BUN 22 mg/dL 5-25 Calcium 9.0 mg/dL 8.3-10.4 Chloride 100 mmol/L 95-114 CO2 27 mEq/L 22-33 Creat 0.83 mg/dL 0.50-1.50 eGFR 65 mL/min/1.73m2 >59 Globulin 2.3 g/dL 2.3-3.5 Glucose 138 mg/dL 70-110 Osmo 284 280-295 Potassium 4.5 mmol/L 3.5-5.3 Sodium 135 mmol/L 134-148 TBil 0.5 mg/dL 0.2-1.2 TP 5.7 g/dL 6.0-8.3 Urinalysis - 03/03/19 12:51 Icotest N/A Negative Urine Volume Urine Volume Sufficient (10mL) Urine Yeast No Yeast present Urine-Appearance Cloudy Clear Urine-Bacteria 4+ Urine-Bilirubin Negative Negative Urine-Blood 1+ Negative Urine-Color Yellow Colorless-Lt. Yellow Urine-Glucose Negative Negative Urine-Ketones Trace Negative Urine-Leukocytes 2+ Negative Urine-Nitrite Negative Negative Urine-Other Culture to follow Urine-pH 7.0 5-8.5 Urine-Protein Negative Negative Urine-RBC 10-20/HPF Urine-Specific [place] 1.015 1.000-1.030 Urine-WBC TNTC Urobilinogen 0.2 E.U./dL 0.2-1.0 Urine Culture - 03/03/19 12:51 PRELIM CULTURE RESULTS >100,000 Gram Positive Mixed Dariana [id number] Skin Contaminant FINAL CULTURE RESULTS >100,000 Gram Positive Mixed Dariana [id number] Skin Contaminant [id number] Further Workup done CULTURE SOURCE URINE CULTURE Encounters ACCT No. Visit Date/Time Discharge Status Pt. Type Provider Facility Loc./Unit Complaint [id number] 02/17/2019 11:56:00 03/05/2019 10:46:00 DIS Inpatient [facility] [id number] 12/23/2018 18:35:00 01/09/2019 09:45:00 DIS Inpatient [facility] [id number] 12/23/2018 18:23:40 Document Registration [id number] 06/07/2018 20:01:03 ACT Unknown [id number] 02/17/2019 11:56:00 Document Registration
== END 2019-05-15 16:30 | disposition home or self-care (01) ==
LOC: ER 13:33
DX: R53.1 Weakness (principal); F03.90 Unspecified dementia, unspecified severity, without behavioral disturbance, psychotic disturbance, mood disturbance, and anxiety
CPT/HCPCS: 36415; 70450; 71045; 80053; 85025; 93005

== ENCOUNTER 2019-10-06 18:12 | Emergency (ER) | payer MEDICARE, MEDICAID ==
[~2019-10-06] VITALS: Ht 152.4 cm; Wt 54.5 kg
[2019-10-06] MEDS ORDERED: NS IV 500 ML 500 ML IV ONE (18:22)
[2019-10-06 18:45] LABS: BASOPHILS % (AUTO) 1 % (0-10); EOSINOPHILS # (AUTO) 0.1 10^3/uL (0.0-0.3); EOSINOPHILS % (AUTO) 2 % (0-10); HEMATOCRIT 34 % (35-52); HEMOGLOBIN 11.4 G/DL (11.5-16.0); LYMPHOCYTES # (AUTO) 2.1 X 10^3 (1.0-4.0); LYMPHOCYTES % (AUTO) 55 % (12-44); MEAN CORPUSCULAR HEMOGLOBIN 30 PG (25-34); MEAN CORPUSCULAR HGB CONC 33 G/DL (32-36); MEAN CORPUSCULAR VOLUME 90 FL (80-99); MEAN PLATELET VOLUME 10.1 FL (7.4-10.4); MONOCYTES # (AUTO) 0.3 X 10^3 (0.0-1.0); MONOCYTES % (AUTO) 7 % (0-12); NEUTROPHILS # (AUTO) 1.4 X 10^3 (1.8-7.8); NEUTROPHILS % (AUTO) 36 % (42-75); PLATELET COUNT 268 10^3/uL (130-400); RED CELL DISTRIBUTION WIDTH 11.7 % (10.0-14.5); WHITE BLOOD COUNT 3.8 10^3/uL (4.3-11.0)
--- NOTE | 2019-10-06 18:54 | Diagnostic Imaging Report ---
INDICATION: Syncope. Portable chest 6:47 PM Heart size and pulmonary vascularity are normal. Lungs are clear. There are no effusions or pneumothoraces. IMPRESSION: Negative chest Dictated by: Dictated on workstation # [id number]
--- NOTE | 2019-10-06 19:05 | ED Syncope ---
General Chief Complaint: Dizziness/Syncope Stated Complaint: SYNCOPE Nursing Triage Note: Pt to room #4 via [facility] ems cart from [facility] [place] with c/o syncopal episode. [employer] facility nurse contacted this RN with report that @1740 while eating dinner, pt experienced syncopal episode last approx x5 minutes before returning to baseline mentation. Facility nurse reports Lrg loose bowel movement was passed by pt while episode occurred. Facility nurse denies fall or injury. Upon arrival CC ems report multiple iv attempts were made with no access gained. Ems report pt remains in baseline mentation. Pt alert and will follow simple commands. Source of Information: Patient, EMS Exam Limitations: Physical Impairments History of Present Illness Date Seen by Provider: Oct 06, 2019 Time Seen by Provider: 18:10 Initial Comments Patient here by EMS with report of episode of syncope that lasted approximately 5 minutes. She was sitting at the dinner table and apparently had the episode. She did not hit her head or fall. Patient apparently had a bowel movement and then the episode or the episode and a bowel movement. It is unclear which precipitated which. She has had syncopal episodes with large bowel movement before. No injury or fall noted or reported. Patient has advanced dementia and history is significantly limited secondary to that. Patient does not endorse any pain currently. Does follow some simple commands with does not really answer questions well. This is apparently her baseline secondary to dementia. Timing/Prior Episodes: Remote History Symptoms Prior to Episode: Confusion Loss of Consciousness: Prolonged (Minutes) Allergies and Home Medications Allergies Coded Allergies: No Known Drug Allergies (Unverified , 05/15/19) Patient Home Medication List Home Medication List Reviewed: Yes Review of Systems Constitutional: see HPI Review of systems Limited due to her underlying dementia. Past Boyvnfg-Ozrpgo-Zmubmx Hx Past Med/Social Hx: Reviewed Nursing Past Med/Soc Hx Patient Social History Alcohol Use: Denies Use Recreational Drug Use: No Smoking Status: Never a Smoker 2nd Hand Smoke Exposure: No Recent Foreign Travel: No Contact w/Someone Who Travel: No Recent Infectious Disease Expo: No Recent Hopitalizations: No Physical Abuse: No Sexual Abuse: No Seasonal Allergies Seasonal Allergies: Yes Past Medical History Surgeries: No Respiratory: No Neurological: Yes Dementia Genitourinary: No Gastrointestinal: No Musculoskeletal: No Endocrine: Yes Diabetes, Insulin dep Are Your Blood Sugars Over 250: No HEENT: No Cancer: No Psychosocial: Yes Anxiety, Bipolar, Schizophrenia Integumentary: No Family Medical History Reviewed Nursing Family Hx Physical Exam Vital Signs Vital Signs - First Documented 10/06/19 18:15 Temp 35.9 Pulse 60 Resp 16 B/P (MAP) 129/59 (82) Pulse Ox 96 O2 Delivery Room Air Capillary Refill : Less Than 3 Seconds Height, Weight, BMI Height: 5'7.00" Weight: 115lbs. oz. 52.506348ro; 23.00 BMI Method:Estimated General Appearance: No Apparent Distress, Thin HEENT: PERRL/EOMI, Pharynx Normal Neck: Non Tender, Supple Cardiovascular: Regular Rate, Rhythm, No Murmur Respiratory: Lungs Clear, Normal Breath Sounds Gastrointestinal: Non Tender, Soft Back: Normal Inspection, No CVA Tenderness, No Vertebral Tenderness Extremities: Non Tender, No Calf Tenderness Neurologic/Psychiatric: Alert, Other (patient awake and follows with eyes. She follows some simple commands.) Skin: Normal Color, Warm/Dry Progress/Results/Core Measures Results/Orders Lab Results Laboratory Tests Test 10/06/19 18:30 Range/Units White Blood Count 3.8 L 4.3-11.0 10^3/uL Red Blood Count 3.81 L 4.35-5.85 10^6/uL Hemoglobin 11.4 L 11.5-16.0 G/DL Hematocrit 34 L 35-52 % Mean Corpuscular Volume 90 80-99 FL Mean Corpuscular Hemoglobin 30 25-34 PG Mean Corpuscular Hemoglobin Concent 33 32-36 G/DL Red Cell Distribution Width 11.7 10.0-14.5 % Platelet Count 268 130-400 10^3/uL Mean Platelet Volume 10.1 7.4-10.4 FL Neutrophils (%) (Auto) 36 L 42-75 % Lymphocytes (%) (Auto) 55 H 12-44 % Monocytes (%) (Auto) 7 0-12 % Eosinophils (%) (Auto) 2 0-10 % Basophils (%) (Auto) 1 0-10 % Neutrophils # (Auto) 1.4 L 1.8-7.8 X 10^3 Lymphocytes # (Auto) 2.1 1.0-4.0 X 10^3 Monocytes # (Auto) 0.3 0.0-1.0 X 10^3 Eosinophils # (Auto) 0.1 0.0-0.3 10^3/uL Basophils # (Auto) 0.0 0.0-0.1 10^3/uL Sodium Level 137 135-145 MMOL/L Potassium Level 3.9 3.6-5.0 MMOL/L Chloride Level 102 98-107 MMOL/L Carbon Dioxide Level 25 21-32 MMOL/L Anion Gap 10 5-14 MMOL/L Blood Urea Nitrogen 23 H 7-18 MG/DL Creatinine 1.02 0.60-1.30 MG/DL Estimat Glomerular Filtration Rate 51 BUN/Creatinine Ratio 23 Glucose Level 226 H 70-105 MG/DL Calcium Level 8.5 8.5-10.1 MG/DL Corrected Calcium 8.8 8.5-10.1 MG/DL Total Bilirubin 0.3 0.1-1.0 MG/DL Aspartate Amino Transf (AST/SGOT) 13 5-34 U/L Alanine Aminotransferase (ALT/SGPT) 9 0-55 U/L Alkaline Phosphatase 72 40-136 U/L Troponin I < 0.028 <0.028 NG/ML C-Reactive Protein High Sensitivity 0.30 0.00-0.50 MG/DL Total Protein 5.9 L 6.4-8.2 GM/DL Albumin 3.6 3.2-4.5 GM/DL My Orders Orders - PRETTY RAMIREZ MD Cbc With Automated Diff (10/06/19 18:22) Comprehensive Metabolic Panel (10/06/19 18:22) Hs C Reactive Protein (10/06/19 18:22) Troponin I (10/06/19 18:22) Ed Iv/Invasive Line Start (10/06/19 18:22) Ns Iv 500 Ml (Sodium Chloride 0.9%) (10/06/19 18:22) Ekg Tracing (10/06/19 18:22) Monitor-Rhythm Ecg Trace Only (10/06/19 18:22) Chest 1 View, Ap/Pa Only (10/06/19 18:24) Medications Given in ED Current Medications Medications Dose Ordered Sig/Jena Route Start Time Stop Time Status Last Admin Dose Admin Sodium Chloride 500 ml @ 0 mls/hr Q0M ONCE IV 10/06/19 18:22 10/06/19 18:23 DC 10/06/19 18:32 500 MLS/HR Vital Signs/I&O 10/06/19 18:15 Temp 35.9 Pulse 60 Resp 16 B/P (MAP) 129/59 (82) Pulse Ox 96 O2 Delivery Room Air Blood Pressure Mean: 82 Progress Progress Note : Progress Note Seen and evaluated. IV, labs, normal saline 500 mL bolus and EKG ordered. Monitor patient. 1954: No acute findings. I discussed the case with Dr. Castaneda. Okay for discharge back to care home. Discharge back to nursing ho me with return precautions. Patient at baseline Initial ECG Impression Date: Oct 06, 2019 Initial ECG Impression Time: 19:11 Initial ECG Rate: 63 Initial ECG Rhythm: Normal Sinus Comment Sinus rhythm with normal axis. No evidence of ST elevation [place]. Unchanged from previous of 05/15/19. Interpreted by me. Diagnostic Imaging Diagonstic Imaging: Xray Plain Films/CT/US/NM/MRI: chest Comments [facility], [place] NAME: [facility] REC#: [id number] PT STATUS: REG ER : 1930 PHYSICIAN: PRETTY RAMIREZ MD ADMIT DATE: 10/06/19/ER Draft Date of Exam:10/06/19 CHEST 1 VIEW, AP/PA ONLY INDICATION: Syncope. Portable chest 6:47 PM Heart size and pulmonary vascularity are normal. Lungs are clear. There are no effusions or pneumothoraces. IMPRESSION: Negative chest Dictated on workstation # [id number] Dict: [id number] Trans: 10/06/19 [address] [facility] [id number] Interpreted by: PRETTY DRAPER MD Electronically signed by: Departure Impression Primary Impression: Syncope Qualified Codes: R55 - Syncope and collapse Disposition: 01 HOME, SELF-CARE Condition: Stable Departure-Patient Inst. Decision time for Depature: 20:16 Referrals: BOB CASTANEDA DO (PCP/Family) Primary Care Physician Patient Instructions: Syncope (Fainting) (DC) Add. Discharge Instructions: All discharge instructions reviewed with patient and/or family. Voiced understanding. Continue previously prescribed medications and regimens. Follow-up with Dr. Castaneda as needed. Copy Copies To 1: BOB CASTANEDA TIMOTHY D MD Oct 06, 2019 19:05
[2019-10-06 19:06] LABS: ALANINE AMINOTRANSFERASE 9 U/L (0-55); ALBUMIN 3.6 GM/DL (3.2-4.5); ALKALINE PHOSPHATASE 72 U/L (40-136); BILIRUBIN,TOTAL 0.3 MG/DL (0.1-1.0); BUN/CREATININE RATIO 23; CALCIUM 8.5 MG/DL (8.5-10.1); CARBON DIOXIDE 25 MMOL/L (21-32); CHLORIDE 102 MMOL/L (98-107); CREATININE SERUM 1.02 MG/DL (0.60-1.30); GFR ESTIMATED 51; GLUCOSE 226 MG/DL (70-105); POTASSIUM 3.9 MMOL/L (3.6-5.0); SODIUM 137 MMOL/L (135-145); TOTAL PROTEIN 5.9 GM/DL (6.4-8.2)
--- NOTE | 2019-10-06 20:00 | NUR ---
Report called to nurse Cardenas from [facility]. This RN request transport back to facility. Carolyn voices no further questions or concerns.
[2019-10-06 20:39] VITALS: BP 116/50
== END 2019-10-06 20:39 | disposition home or self-care (01) ==
LOC: EDUNIT# 18:12 → ER 18:12
DX: R55 Syncope and collapse (principal); F03.90 Unspecified dementia, unspecified severity, without behavioral disturbance, psychotic disturbance, mood disturbance, and anxiety; E11.9 Type 2 diabetes mellitus without complications; F41.9 Anxiety disorder, unspecified; F31.9 Bipolar disorder, unspecified; F20.9 Schizophrenia, unspecified
CPT/HCPCS: 36415; 71045; 80053; 84484; 85025; 86141; 93005; 93041; 96360

== ENCOUNTER 2019-12-06 09:37 | Emergency (ER) | payer MEDICARE, MEDICAID ==
[~2019-12-06] VITALS: Ht 152 cm; Wt 48.0 kg
--- NOTE | 2019-12-06 09:51 | ED Respiratory ---
General Chief Complaint: Respiratory Problems Stated Complaint: SOA Nursing Triage Note: ARRIVED VIA EMS FROM [facility] AND [facility]. PT IS HAS ALZHEIMERS AND WILL NOT TALK TO US AT THIS TIME. PT AWAKE. History of Present Illness Date Seen by Provider: Dec 06, 2019 Time Seen by Provider: 09:51 Initial Comments 89-year-old female with severe Alzheimer dementia sent in by [facility]. Patient does not provide ride any information. History is provided by EMS. Patient was sent in for tachypnea, increased respiratory rate. No other symptoms reported, she is not hypoxic nor no reports of fever chills nausea vomiting or any else from EMS or the [facility]. Allergies and Home Medications Allergies Coded Allergies: No Known Drug Allergies (Unverified , 05/15/19) Patient Home Medication List Home Medication List Reviewed: Yes Review of Systems Review of Systems Constitutional: No chills, No fever Patient with severe Alzheimer dementia and unable to obtain further review of systems Past Rwivvfd-Ntuqgg-Nuohne Hx Past Med/Social Hx: Reviewed Nursing Past Med/Soc Hx Patient Social History 2nd Hand Smoke Exposure: No Recent Foreign Travel: No Contact w/Someone Who Travel: No Recent Infectious Disease Expo: No Recent Hopitalizations: No Seasonal Allergies Seasonal Allergies: Yes Past Medical History Surgeries: No Respiratory: No Cardiac: No Neurological: Yes Dementia Genitourinary: No Gastrointestinal: No Musculoskeletal: No Endocrine: Yes Diabetes, Insulin dep HEENT: No Cancer: No Psychosocial: Yes Anxiety, Bipolar, Schizophrenia Integumentary: No Physical Exam Vital Signs - First Documented 12/06/19 09:40 Temp 36.1 Pulse 82 Resp 40 B/P (MAP) 137/63 (87) Pulse Ox 100 O2 Delivery Room Air Capillary Refill : Less Than 3 Seconds Height: 5'7.00" Weight: 115lbs. oz. 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20 L 4.35-5.85 10^6/uL Hemoglobin 12.7 11.5-16.0 G/DL Hematocrit 39 35-52 % Mean Corpuscular Volume 93 80-99 FL Mean Corpuscular Hemoglobin 30 25-34 PG Mean Corpuscular Hemoglobin Concent 32 32-36 G/DL Red Cell Distribution Width 12.2 10.0-14.5 % Platelet Count 378 130-400 10^3/uL Mean Platelet Volume 10.0 7.4-10.4 FL Neutrophils (%) (Auto) 65 42-75 % Lymphocytes (%) (Auto) 27 12-44 % Monocytes (%) (Auto) 5 0-12 % Eosinophils (%) (Auto) 2 0-10 % Basophils (%) (Auto) 1 0-10 % Neutrophils # (Auto) 4.3 1.8-7.8 X 10^3 Lymphocytes # (Auto) 1.8 1.0-4.0 X 10^3 Monocytes # (Auto) 0.4 0.0-1.0 X 10^3 Eosinophils # (Auto) 0.1 0.0-0.3 10^3/uL Basophils # (Auto) 0.0 0.0-0.1 10^3/uL Sodium Level 140 135-145 MMOL/L Potassium Level 4.4 3.6-5.0 MMOL/L Chloride Level 102 98-107 MMOL/L Carbon Dioxide Level 29 21-32 MMOL/L Anion Gap 9 5-14 MMOL/L Blood Urea Nitrogen 31 H 7-18 MG/DL Creatinine 1.11 0.60-1.30 MG/DL Estimat Glomerular Filtration Rate 46 BUN/Creatinine Ratio 28 Glucose Level 217 H 70-105 MG/DL Calcium Level 9.2 8.5-10.1 MG/DL B-Type Natriuretic Peptide 17.2 <100.0 PG/ML Glucometer 206 H 70-110 MG/DL Micro Results Microbiology 12/06/19 Influenza Types A,B Antigen (GISELL) - Final, Complete My Orders Orders - GATO YIP DO Chest 1 View, Ap/Pa Only (12/06/19 09:51) Basic Metabolic Panel (12/06/19 09:51) BNP (12/06/19 09:51) Cbc With Automated Diff (12/06/19 09:51) Influenza A And B Antigens (12/06/19 09:51) Vital Signs/I&O 12/06/19 09:40 Temp 36.1 Pulse 82 Resp 40 B/P (MAP) 137/63 (87) Pulse Ox 100 O2 Delivery Room Air Capillary Refill : Less Than 3 Seconds Blood Pressure Mean: 87 Progress Note : Time: 10:40 Progress Note Patient with no signs of respiratory distress. Her oxygen is 100% throughout her stay on room air in the ER. Patient with clear lung signs and normal evaluation. Patient to be discharged back to the [facility] in stable condition. Diagnostic Imaging Diagonstic Imaging: Xray Plain Films/CT/US/NM/MRI: chest Comments NAME: ELIO SUMMERS [facility] REC#: [id number] PT STATUS: REG ER : [id number] PHYSICIAN: GATO YIP DO ADMIT DATE: 12/06/19/ER Signed Date of Exam:12/06/19 CHEST 1 VIEW, AP/PA ONLY EXAMINATION: Chest radiograph, portable AP view. DATE: 12/06/2019 10:07 AM hours. INDICATION: 89-year-old female, low oxygen saturations. COMPARISON: October 06, 2019. FINDINGS: Stable overall appearance of the cardiomediastinal silhouette. There is no identified pneumothorax. There is no large pleural effusion. There is no identified focal airspace consolidation. IMPRESSION: No identified acute cardiopulmonary abnormality. Departure Impression Primary Impression: Tachypnea Disposition: 01 HOME, SELF-CARE Condition: Stable Departure-Patient Inst. Referrals: BOB CASTANEDA DO (PCP/Family) Primary Care Physician Add. Discharge Instructions: Emergency department focuses on treating and ruling out life-threatening diseases. Whenever possible, a diagnosis is given. However, most patients are given an impression based on their history, physical exam, and workup during your brief time in the ER. Information about probable diagnosis and other educational material has been provided. Please take the time to read and understand this information. It is very important that you follow up with a physician as discussed during the visit today. Failure to adhere to your follow-up instructions may lead to severe disability, injury, or so please make sure to keep your appointments or obtain one as requested. Please keep in mind the emergency department is not designed to your primary care or "family doctor" and nonurgent issues are best evaluated by an outpatient physician All discharge instructions reviewed with patient and/or family. Voiced understanding. GATO YIP DO Dec 06, 2019 09:51
[2019-12-06 10:03] LABS: BASOPHILS % (AUTO) 1 % (0-10); EOSINOPHILS # (AUTO) 0.1 10^3/uL (0.0-0.3); EOSINOPHILS % (AUTO) 2 % (0-10); HEMATOCRIT 39 % (35-52); HEMOGLOBIN 12.7 G/DL (11.5-16.0); LYMPHOCYTES # (AUTO) 1.8 X 10^3 (1.0-4.0); LYMPHOCYTES % (AUTO) 27 % (12-44); MEAN CORPUSCULAR HEMOGLOBIN 30 PG (25-34); MEAN CORPUSCULAR HGB CONC 32 G/DL (32-36); MEAN CORPUSCULAR VOLUME 93 FL (80-99); MONOCYTES # (AUTO) 0.4 X 10^3 (0.0-1.0); MONOCYTES % (AUTO) 5 % (0-12); NEUTROPHILS # (AUTO) 4.3 X 10^3 (1.8-7.8); NEUTROPHILS % (AUTO) 65 % (42-75); PLATELET COUNT 378 10^3/uL (130-400); RED CELL DISTRIBUTION WIDTH 12.2 % (10.0-14.5); WHITE BLOOD COUNT 6.6 10^3/uL (4.3-11.0)
--- NOTE | 2019-12-06 10:14 | Diagnostic Imaging Report ---
EXAMINATION: Chest radiograph, portable AP view. DATE: 12/06/2019 10:07 AM hours. INDICATION: 89-year-old female, low oxygen saturations. COMPARISON: October 06, 2019. FINDINGS: Stable overall appearance of the cardiomediastinal silhouette. There is no identified pneumothorax. There is no large pleural effusion. There is no identified focal airspace consolidation. IMPRESSION: No identified acute cardiopulmonary abnormality. Dictated by: Dictated on workstation # [id number]
[2019-12-06 10:20] LABS: CALCIUM 9.2 MG/DL (8.5-10.1); CREATININE SERUM 1.11 MG/DL (0.60-1.30); POTASSIUM 4.4 MMOL/L (3.6-5.0)
--- NOTE | 2019-12-06 10:46 | NUR ---
[facility] NOTIFIED OF NEEDING A RIDE BACK.
[2019-12-06 11:25] VITALS: BP 137/63
== END 2019-12-06 11:25 | disposition home or self-care (01) ==
LOC: EDUNIT# 09:37 → ER 09:38
DX: R06.82 Tachypnea, not elsewhere classified (principal)
CPT/HCPCS: 36415; 71045; 80048; 82962; 83880; 85025; 87804

== ENCOUNTER 2020-09-14 11:51 | Outpatient (CLI) | payer MEDICARE, MEDICAID ==
[2020-09-14 15:15] VITALS: BP 111/60
== END 2020-09-14 17:20 ==
LOC: SDC 11:51
PROVIDERS: ATTEND Family Medicine
DX: E86.0 Dehydration (principal)
CPT/HCPCS: 36569; 76937

== ENCOUNTER → 2020-09-18 | Outpatient (CLI) | payer MEDICARE, MEDICAID ==
[2020-09-18 09:51] LABS: CHLORIDE 116 MMOL/L (98-107); POTASSIUM 3.2 MMOL/L (3.6-5.0); SODIUM 152 MMOL/L (135-145)
[2020-09-18 09:52] LABS: CALCIUM 7.6 MG/DL (8.5-10.1)
[2020-09-18 09:53] LABS: GLUCOSE 116 MG/DL (70-105)
[2020-09-18 09:54] LABS: CARBON DIOXIDE 25 MMOL/L (21-32)
[2020-09-18 09:57] LABS: CREATININE SERUM 0.71 MG/DL (0.60-1.30); GFR ESTIMATED > 60
[2020-09-18 09:58] LABS: BUN/CREATININE RATIO 32
== END ==
LOC: LABNPT 08:00
PROVIDERS: ATTEND Family Medicine
DX: Z01.89 Encounter for other specified special examinations (principal)
CPT/HCPCS: 80048

== ENCOUNTER → 2020-09-19 | Outpatient (CLI) | payer MEDICARE, MEDICAID ==
[2020-09-19 08:23] LABS: CHLORIDE 113 MMOL/L (98-107); POTASSIUM 3.1 MMOL/L (3.6-5.0); SODIUM 149 MMOL/L (135-145)
[2020-09-19 08:24] LABS: CALCIUM 7.6 MG/DL (8.5-10.1)
[2020-09-19 08:25] LABS: GLUCOSE 180 MG/DL (70-105)
[2020-09-19 08:26] LABS: CARBON DIOXIDE 23 MMOL/L (21-32)
[2020-09-19 08:29] LABS: CREATININE SERUM 0.81 MG/DL (0.60-1.30); GFR ESTIMATED > 60
[2020-09-19 08:30] LABS: BUN/CREATININE RATIO 30
== END ==
LOC: LABNPT 07:30
PROVIDERS: ATTEND Family Medicine
DX: Z01.89 Encounter for other specified special examinations (principal)
CPT/HCPCS: 80048

== ENCOUNTER 2020-10-08 12:00 | Emergency (ER) | payer MEDICARE, MEDICAID ==
[~2020-10-08] VITALS: Ht 154.5 cm; Wt 46.0 kg
--- NOTE | 2020-10-08 12:00 | NUR ---
1200- PT ARRIVAL VIA EMS. [facility] INPLACE. CPR IN PROGRESS. WITNESSED ARREST @ [id number]. 1204- NO AUSCULTATED HEARBEAT. TIME OF CALLED AT [address] RICE.
--- NOTE | 2020-10-08 12:11 | ED General ---
General Stated Complaint: CARDIAC ARREST Source of Information: EMS Exam Limitations: No Limitations History of Present Illness Date Seen by Provider: Oct 08, 2020 Time Seen by Provider: 12:18 Initial Comments Patient is an 89-year-old female brought [facility] a local jail with respiratory arrest/cardiac arrest. EMS reported they thought they had a faint pulse prior to transport at 50. ACLS protocol was started. The patient had a guardian as well as the jail physician in the process of making her a DNR. The paperwork was not signed at the time of the arrest therefore the patient was transported to this facility for further treatment. On arrival the patient has an airway/I gel in place but no IV access. Patient noted to be asystole on the monitor without audible heart sounds. Patient unresponsive, given ventilations through the i gel. Review of systems unobtainable secondary to unresponsive state Timing/Duration: 1/2 Hour Severity: Severe Allergies and Home Medications Allergies Coded Allergies: No Known Drug Allergies (Unverified , 05/15/19) Patient Home Medication List Home Medication List Reviewed: Yes Review of Systems Review of Systems Constitutional: see HPI Past Ldvoddc-Kldjjl-Wtfizd Hx Patient Social History 2nd Hand Smoke Exposure: No Recent Foreign Travel: No Recent Hopitalizations: No Seasonal Allergies Seasonal Allergies: Yes Past Medical History Surgeries: No Respiratory: No Cardiac: No Neurological: Yes Dementia Genitourinary: No Gastrointestinal: No Musculoskeletal: No Endocrine: Yes Diabetes, Insulin dep HEENT: No Cancer: No Psychosocial: Yes Anxiety, Bipolar, Schizophrenia Integumentary: No Physical Exam Vital Signs Capillary Refill : Height, Weight, BMI Height: 5'7.00" Weight: 115lbs. oz. 52.351854bl; 20.00 BMI Method:Estimated General Appearance: Cachetic Respiratory: Other (Breath sounds audible bilaterally as the patient is being ventilated through her I gel.) Cardiovascular: Other (No audible heart sounds) Gastrointestinal: Soft Neurologic/Psychiatric: Other (Unresponsive) Skin: Warm/Dry, Pallor Progress/Results/Core Measures Suspected Sepsis SIRS Temperature: Pulse: Respiratory Rate: Blood Pressure / Mean: Results/Orders Vital Signs/I&O Capillary Refill : Progress Note : Time: 12:22 Progress Note After the patient was brought into the room assessment was done patient did not have a palpable pulse. CPR was continued for a minute or 2 with no spontaneous return of circulation. As the patient was being made a DNR efforts to further resuscitate were discontinued. Patient was pronounced at 1205. Departure Impression Primary Impression: Cardiac arrest Disposition: 20 Condition: Departure-Patient Inst. Referrals: BOB CASTANEDA DO (PCP/Family) Primary Care Physician BRODERICK RICE MD Oct 08, 2020 12:11
[2020-10-08 15:16] VITALS: BP 0/0
== END 2020-10-08 15:16 | disposition expired ==
LOC: EDUNIT# 12:04 → ER 12:06
DX: I46.9 Cardiac arrest, cause unspecified (principal)